=== PATIENT | male | born 1960 | race Caucasian/White ===

== ENCOUNTER 2017-01-27 11:00 | Inpatient (IN) | payer BC ==
[~2017-01-27] VITALS: Ht 185.4 cm; Wt 114.0 kg
[~2017-01-27 11:00] MED LIST: FLUT0.0529 NAE
[2017-01-27] MEDS ORDERED: ONDANSETRON 8 MG/54 ML D5W IV STA (11:29)
[2017-01-27] MEDS ORDERED: SODIUM CHLORIDE 0.9% 1000ML 1,000 ML IV STA ×2 (11:29→14:27)
[2017-01-27] MEDS ORDERED: METF500T5 PO (11:29)
[2017-01-27 11:54] LABS: BASO % 0.1 %; BASO ABS # 0.01 K/uL (0-0.2); COMPLETE YES; EOS % 0.2 %; HEMATOCRIT 46.6 % (42-52); IG% 0.2 %; LYMPH % 8.5 %; LYMPH ABS # 0.85 K/uL (1.2-3.4); MEAN CELL VOLUME 88.4 fL (80-100); MEAN CORPUSCULAR HEMOGLOBIN 30.4 pg (25-34); MEAN CORPUSCULAR HGB CONC 34.3 g/dl (32-36); MEAN PLATELET VOLUME 10.8 fL (7.4-10.4); MONO % 3.7 %; NEUT % 87.3 %; PLATELET COUNT 216 K/uL (130-400); RED BLOOD COUNT 5.27 M/uL (4.7-6.1)
[2017-01-27 11:58] LABS: ISTAT CREATININE 0.9 mg/dl (0.6-1.3); ISTAT HEMOGLOBIN 17.3 g/dl (14.0-18.0); ISTAT IONIZED CALCIUM 1.22 mmol/l (1.12-1.32)
[2017-01-27] MEDS: HYDROmorphone INJ 1 MG/ML SYR IV PRN ×2 (11:58→13:34)
--- NOTE | 2017-01-27 12:05 | DIAGNOSTIC IMAGING REPORT ---
CHEST ONE VIEW PORTABLE HISTORY: Atypical CHEST PAIN COMPARISON: None. FINDINGS: Low lung volumes. Left basilar subsegmental atelectasis. The heart is normal in size. No pleural effusions. No pneumothorax. Right hilar prominence may be due to the slight patient rotation. IMPRESSION: Left basilar subsegmental atelectasis. No acute process within the chest. Electronically signed by: Manuel Wick M.D. 01/27/2017 12:02 PM Dictated Date/Time: 01/27/2017 12:02 PM
[2017-01-27 12:28] LABS: BUN/CREATININE RATIO 16.7 (10-20); CALCIUM 9.1 mg/dl (8.5-10.1); CKMB/CK RATIO 1.9 (0-3.0); CREATININE 1.1 mg/dl (0.60-1.40); POTASSIUM 4.9 mmol/L (3.5-5.1)
[2017-01-27 12:43] LABS: BETA-HYDROXYBUTYRATE 6.82 mg/dL (0.2-2.81)
[2017-01-27] MEDS ORDERED: OPTIRAY 320 IV PRN (12:45)
--- NOTE | 2017-01-27 13:36 | DIAGNOSTIC IMAGING REPORT ---
CHEST CTA for AORTIC DISSECTION CT DOSE: 1979.96 mGy.cm HISTORY: Mid back pain. Anterior chest pain. TECHNIQUE: Multiaxial CT images of the chest were performed both before and after the intravenous administration of contrast to evaluate the aorta. Maximal intensity projection images were also obtained. COMPARISON STUDY: None. FINDINGS: Noncontrast imaging shows no evidence for an intramural hematoma within the thoracic aorta. Normal caliber thoracic aorta with no evidence for dissection. The central pulmonary arteries are patent. No pleural or pericardial effusions. The heart is normal in size. A few hypodense thyroid nodules with the largest on the right measuring 1 cm. No mediastinal or hilar lymphadenopathy. The spleen and adrenal glands are unremarkable. Hepatic steatosis. Mild inflammatory change surrounding the gallbladder. There is a 2.7 cm stone at the gallbladder neck. Normal caliber common bile duct. These findings are consistent with acute cholecystitis. No suspicious lytic or blastic osseous lesions. No pneumothorax. Bibasilar linear and groundglass densities favor atelectasis. IMPRESSION: 1. No evidence for an aortic dissection. 2. Bibasilar linear and groundglass densities favor atelectasis. 3. Mild inflammatory change surrounding the gallbladder. There is a 2.7 cm stone at the gallbladder neck. These findings are consistent with acute cholecystitis. Surgical consultation recommended. Electronically signed by: Manuel Wick M.D. 01/27/2017 1:34 PM Dictated Date/Time: 01/27/2017 1:26 PM
[2017-01-27] MEDS ORDERED: SODIUM CHLORIDE 0.9% 1000ML 2,000 ML IV STA (14:27)
[2017-01-27] MEDS ORDERED: NovoLIN-R INSULIN PER UNIT CHARGE IV STA (14:27)
--- NOTE | 2017-01-27 15:03 | DIAGNOSTIC IMAGING REPORT ---
ABDOMINAL ULTRASOUND, RIGHT UPPER QUADRANT HISTORY: back pain, cholecystitis? on US. COMPARISON: Chest CTA 01/27/2017. FINDINGS: Pancreas: The pancreatic head and tail are obscured by overlying bowel gas. The remaining portions of the pancreas are within normal limits. Liver: The liver is echogenic consistent with fatty change. Gallbladder: There is a 2.5 cm stone impacted within the neck of the gallbladder. There is trace pericholecystic fluid and borderline gallbladder wall thickening at 3 mm. There is also trace gallbladder sludge. CBD: 4 mm. Right kidney: No hydronephrosis. IMPRESSION: A 2.5 cm stone impacted in the neck of the gallbladder with trace pericholecystic fluid and borderline gallbladder wall thickening. In conjunction with the same day chest CT this is highly suspicious for acute cholecystitis. Electronically signed by: Manuel Wick M.D. 01/27/2017 3:02 PM Dictated Date/Time: 01/27/2017 2:59 PM
[2017-01-27 15:30] VITALS: O2SAT 93; BMI 33.2
[2017-01-27] MEDS ORDERED: CEFOXITIN SOD 2 GM VIAL IV STA (15:47)
[2017-01-27] MEDS ORDERED: HYDROmorphone INJ 1 MG/ML SYR IV PRN (16:30)
[2017-01-27] MEDS ORDERED: ONDANSETRON INJ 2 MG/ML 2 ML VIAL IV PRN (16:30)
[2017-01-27] MEDS ORDERED: HYDROCODONE/ACETAMOPHEN 5/325MG TAB PO PRN ×2 (16:30)
[2017-01-27] MEDS ORDERED: PROMETHAZINE HCL INJ 25 MG in SODIUM CHLORIDE 0.9% 50ML 50 ML IV PRN (16:30)
[2017-01-27] MEDS ORDERED: HYDROmorphone INJ 0.5 MG/0.5 ML SYR IV PRN (16:30)
--- NOTE | 2017-01-27 16:36 | Surgery Progress Note ---
Surgery Progress Note Date of Service Jan 27, 2017. Subjective see dictated note Objective Vital Signs: Date Time Temp Pulse Resp B/P Pulse Ox O2 Delivery O2 Flow Rate FiO2 01/27/17 16:07 65 18 135/73 97 Room Air 01/27/17 15:47 70 01/27/17 15:30 93 Room Air 01/27/17 14:01 74 18 155/82 93 Room Air 01/27/17 12:50 65 01/27/17 12:02 65 18 160/96 94 Room Air 163/89 01/27/17 11:52 94 Room Air 01/27/17 11:52 93 Room Air 01/27/17 11:07 36.3 59 18 175/96 96 Room Air Laboratory Results: Results Past 24 Hours Test 01/27/17 11:39 01/27/17 11:42 01/27/17 11:45 01/27/17 16:05 Range/Units White Blood Count 10.00 4.8-10.8 K/uL Red Blood Count 5.27 4.7-6.1 M/uL Hemoglobin 16.0 14.0-18.0 g/dL Hematocrit 46.6 42-52 % Mean Corpuscular Volume 88.4 80-100 fL Mean Corpuscular Hemoglobin 30.4 25-34 pg Mean Corpuscular Hemoglobin Concent 34.3 32-36 g/dl Platelet Count 216 130-400 K/uL Mean Platelet Volume 10.8 7.4-10.4 fL Neutrophils (%) (Auto) 87.3 % Lymphocytes (%) (Auto) 8.5 % Monocytes (%) (Auto) 3.7 % Eosinophils (%) (Auto) 0.2 % Basophils (%) (Auto) 0.1 % Neutrophils # (Auto) 8.73 1.4-6.5 K/uL Lymphocytes # (Auto) 0.85 1.2-3.4 K/uL Monocytes # (Auto) 0.37 0.11-0.59 K/uL Eosinophils # (Auto) 0.02 0-0.5 K/uL Basophils # (Auto) 0.01 0-0.2 K/uL RDW Standard Deviation 42.9 36.4-46.3 fL RDW Coefficient of Variation 13.3 11.5-14.5 % Immature Granulocyte % (Auto) 0.2 % Immature Granulocyte # (Auto) 0.02 0.00-0.02 K/uL Sodium Level 138 136-145 mmol/L Potassium Level 4.9 3.5-5.1 mmol/L Chloride Level 105 98-107 mmol/L Carbon Dioxide Level 28 21-32 mmol/L Anion Gap 5.0 21.0 16-25 mmol/L Blood Urea Nitrogen 18 7-18 mg/dl Creatinine 1.10 0.60-1.40 mg/dl Est Creatinine Clear Calc Drug Dose 96.8 ml/min Estimated GFR () 85.3 Estimated GFR (Non- 73.6 BUN/Creatinine Ratio 16.7 10-20 Random Glucose 354 70-99 mg/dl Calcium Level 9.1 8.5-10.1 mg/dl Total Bilirubin 0.9 0.2-1 mg/dl Direct Bilirubin 0.2 0-0.2 mg/dl Aspartate Amino Transf (AST/SGOT) 23 15-37 U/L Alanine Aminotransferase (ALT/SGPT) 56 12-78 U/L Alkaline Phosphatase 132 45-117 U/L Total Creatine Kinase 57 39-308 U/L Creatine Kinase MB 1.1 0.5-3.6 ng/ml Creatine Kinase MB Ratio 1.9 0-3.0 Total Protein 7.7 6.4-8.2 gm/dl Albumin 4.0 3.4-5.0 gm/dl Lipase 103 73-393 U/L Beta-Hydroxybutyric Acid 6.82 0.2-2.81 mg/dL Bedside D-Dimer 406 0-450 ng/mlFEU Bedside Troponin I 0.000 0-0.045 ng/ml Bedside Hemoglobin 17.3 14.0-18.0 g/dl Bedside Hematocrit 51 42-52 % Bedside Sodium 139 135-144 mEq/L Bedside Potassium 4.9 3.3-5.0 mEq/L Bedside Chloride 101 101-112 mEq/L Bedside Total CO2 23 24-31 mEq/l Bedside Blood Urea Nitrogen 20 7-18 mg/dl Bedside Creatinine 0.9 0.6-1.3 mg/dl Bedside Glucose (other) 347 70-99 mg/dl Bedside Ionized Calcium (Ruben) 1.22 1.12-1.32 mmol/l Bedside Glucose 241 70-99 mg/dl Assessment & Plan 01/27/17- adm pt with acute cholecystitis- has Lg stone in neck of gallbladder. will place pt on IV fluids and IV atbx- ask medical team to see pt and proceed with lap juan jose, possible open operation - likely tomorrow am
[2017-01-27] MEDS ORDERED: PROMETHAZINE HCL INJ 12.5 MG in SODIUM CHLORIDE 0.9% 50ML 50 ML IV PRN (16:45)
[2017-01-27] MEDS ORDERED: PHARMACY GLYCEMIC MGMT CONSULT PRN (16:58)
[2017-01-27] MEDS ORDERED: DEXTROSE 50% 50 ML SYR IV PRN (17:00)
[2017-01-27] MEDS ORDERED: GLUCAGON FOR INJ 1 MG VIAL SQ PRN (17:00)
[2017-01-27] MEDS ORDERED: GLUCOSE 10 TABS/TUBE PO PRN (17:00)
[2017-01-27] MEDS ORDERED: GLUCOSE 40% GEL 15 GM TUBE PO PRN (17:00)
--- NOTE | 2017-01-27 17:06 | HISTORY & PHYSICAL EXAMINATION ---
DATE OF ADMISSION: 01/27/2017 REASON FOR ADMISSION: For acute cholecystitis. HISTORY OF PRESENT ILLNESS: The patient is a 56-year-old male who presented to the Emergency Room with what appeared to be back pain over the past 12-18 hours with some nausea and vomiting and upon workup which included a CT scan of the chest for dissection, he was found to have a mildly thickened gallbladder with stone in the neck of the gallbladder with very small amount of pericholecystic fluid consistent with acute cholecystitis. He had no other prior episodes to this. His other history does include history of diabetes. FAMILY AND SOCIAL HISTORY: Noncontributory. MEDICATIONS: Include metformin. REVIEW OF SYSTEMS: Please see H\T\P for positive systems. He has no fevers, chills, eye pain, cough, shortness of breath, chest pain, diarrhea, constipation, joint pain, hematuria, dysuria, weakness, fatigue, rash. PHYSICAL EXAMINATION: GENERAL: He is a well-nourished, well-developed. He is in no significant distress, although did receive some pain medication. HEAD: Atraumatic. EYES: Sclerae nonicteric. NECK: Supple. LUNGS: Clear with no respiratory distress. HEART: Regular rate and rhythm. ABDOMEN: Soft. He does have some mild discomfort in the right upper quadrant to deep palpation. He does have bowel sounds. EXTREMITIES: Show no significant pedal edema. He is alert and oriented. IMAGING: I did review his CAT scan and his ultrasound. ASSESSMENT AND PLAN: A 56-year-old male admitted with what appears to be acute cholecystitis from cholelithiasis. I am going to have the medical team to see the patient and place him on IV antibiotics and IV fluids. We will most likely proceed with laparoscopic cholecystectomy, possible open cholecystectomy in the next 24-48 hours.
--- NOTE | 2017-01-27 17:12 | Medical Consult ---
Consultation Date of Consultation: Jan 27, 2017. Attending Physician: Dr. Sierra Reason for Consultation: Pre-Op Eval History of Present Illness 56 year old male who presented to the ER with back pain, abdominal pain, nausea , and vomiting. Patient reports he went to bed last night feeling in his usual state of health. He woke up in the middle of the night with severe pain between his shoulder blades, nausea, and vomiting. He reports several episodes of vomiting and dry heaves throughout the night. He denies hematemesis or coffee ground emesis. He rates the pain #10/10 at its worst and describes it as an ache. He reports he had generalized abdominal pain. Symptoms continued through to this morning. Patient went to his chiropractor and only had minimal relief so he came to the ER for further evaluation. Patient reports he had a diarrhea yesterday. He denies BRBPR or dark tarry stools. He reports he had buffalo chicken wings and 3 shots of rum with dinner last night. Today he episodes of chills and hot flashes. He did not take his temperature at home. Patient reports he otherwise has been feeling well recently. No chest pain or shortness of breath. Reports he can climb a flight of stairs without difficulty. Reports he is very active with his job. He has been tolerating his daily activities without any problems. He denies orthopnea and lower extremity edema. No lightheadedness, dizziness, diaphoresis, or syncopal events. He denies urinary symptoms. In the ER, patient is found to have acute cholecystitis with large stone impacted in the neck of the gallbladder. Blood sugar is 354. He was given 6 units IV insulin. Vitals are stable, no leukocytosis. He was also given cefoxitin, IVF, Zofran, and Dilaudid. Patient reports feeling much better. Past Medical/Surgical History Medical Problems: (1) Diabetes Status: Chronic Surgical Problems: (1) H/O inguinal hernia repair Status: Chronic (2) History of tonsillectomy Status: Chronic Family History FH: CAD (coronary artery disease) FATHER ([place] at age 58) Pacemaker MOTHER Social History Smoking Status: Never Smoker Alcohol Use: occasionally Allergies Coded Allergies: Codeine (Verified Adverse Reaction, Unknown, DIZZINESS, 01/27/17) Home Medications Glucophage Er (Metformin HCl) 500 Mg Tab 1,000 Mg PO DAILY Current Inpatient Medications Current Inpatient Medications Medications (Trade) Dose Ordered Sig/Roni Route Start Time Stop Time Status Last Admin Dose Admin Hydromorphone HCl 1 mg 1 mg Q15M PRN IV 01/27/17 11:30 02/10/17 11:29 01/27/17 13:34 1 MG Sodium Chloride (Nss 1000ml) 1,000 ml @ 125 mls/hr Q8H STAT IV 01/27/17 11:29 01/27/17 19:28 01/27/17 11:29 125 MLS/HR Ioversol 100 ml 100 ml UD PRN IV 01/27/17 12:45 01/31/17 12:44 Sodium Chloride 1,000 ml @ 200 mls/hr Q5H STAT IV 01/27/17 14:27 01/27/17 19:26 01/27/17 16:25 200 MLS/HR Lactated Ringer's 1,000 ml @ 80 mls/hr [id number] IV 01/27/17 16:23 02/26/17 16:22 Cefoxitin Sodium/ Dextrose (Mefoxin IV/D5 50ml) 60 ml @ 100 mls/hr Q6H IV 01/27/17 16:30 02/06/17 16:29 UNV Hydromorphone HCl (Dilaudid Inj) 0.5 mg Q3H PRN IV 01/27/17 16:30 02/10/17 16:29 Hydromorphone HCl (Dilaudid Inj) 1 mg Q3H PRN IV 01/27/17 16:30 02/10/17 16:29 Acetaminophen/ Hydrocodone Bitart (Bendena 5/325 Tab) 1 tab Q4 PRN PO 01/27/17 16:30 02/10/17 16:29 Acetaminophen/ Hydrocodone Bitart 2 tab 2 tab Q4 PRN PO 01/27/17 16:30 02/10/17 16:29 Promethazine HCl/ Sodium Chloride (Phenergan Inj/ Nss 50ml) 51 ml @ 204 mls/hr Q6H PRN IV 01/27/17 16:30 02/26/17 16:29 Ondansetron HCl 4 mg 4 mg Q6H PRN IV 01/27/17 16:30 02/26/17 16:29 Promethazine HCl/ Sodium Chloride (Phenergan Inj/ Nss 50ml) 50.5 ml @ 204 mls/hr Q6H PRN IV 01/27/17 16:45 02/26/17 16:44 Review of Systems 10 point review of systems was completed with the pertinent positives and negatives noted per the HPI Physical Exam Date Time Temp Pulse Resp B/P Pulse Ox O2 Delivery O2 Flow Rate FiO2 01/27/17 16:07 65 18 135/73 97 Room Air 01/27/17 15:47 70 01/27/17 15:30 93 Room Air 01/27/17 14:01 74 18 155/82 93 Room Air 01/27/17 12:50 65 01/27/17 12:02 65 18 160/96 94 Room Air 163/89 01/27/17 11:52 94 Room Air 01/27/17 11:52 93 Room Air 01/27/17 11:07 36.3 59 18 175/96 96 Room Air General Appearance: no apparent distress Head: normocephalic Eyes: normal inspection ENT: hearing grossly normal Neck: supple, no JVD Respiratory/Chest: lungs clear, normal breath sounds, no respiratory distress Cardiovascular: regular rate, rhythm, no edema, normal peripheral pulses Abdomen/GI: normal bowel sounds, non tender, soft Extremities/Musculoskelatal: normal inspection, no calf tenderness Neurologic/Psych: no motor/sensory deficits, alert, normal mood/affect, oriented x 3 Skin: normal color, warm/dry Laboratory Results Last 24 Hours Test 01/27/17 11:39 01/27/17 11:42 01/27/17 11:45 01/27/17 16:05 White Blood Count 10.00 K/uL Red Blood Count 5.27 M/uL Hemoglobin 16.0 g/dL Hematocrit 46.6 % Mean Corpuscular Volume 88.4 fL Mean Corpuscular Hemoglobin 30.4 pg Mean Corpuscular Hemoglobin Concent 34.3 g/dl Platelet Count 216 K/uL Mean Platelet Volume 10.8 fL Neutrophils (%) (Auto) 87.3 % Lymphocytes (%) (Auto) 8.5 % Monocytes (%) (Auto) 3.7 % Eosinophils (%) (Auto) 0.2 % Basophils (%) (Auto) 0.1 % Neutrophils # (Auto) 8.73 K/uL Lymphocytes # (Auto) 0.85 K/uL Monocytes # (Auto) 0.37 K/uL Eosinophils # (Auto) 0.02 K/uL Basophils # (Auto) 0.01 K/uL RDW Standard Deviation 42.9 fL RDW Coefficient of Variation 13.3 % Immature Granulocyte % (Auto) 0.2 % Immature Granulocyte # (Auto) 0.02 K/uL Sodium Level 138 mmol/L Potassium Level 4.9 mmol/L Chloride Level 105 mmol/L Carbon Dioxide Level 28 mmol/L Anion Gap 5.0 mmol/L 21.0 mmol/L Blood Urea Nitrogen 18 mg/dl Creatinine 1.10 mg/dl Est Creatinine Clear Calc Drug Dose 96.8 ml/min Estimated GFR () 85.3 Estimated GFR (Non- 73.6 BUN/Creatinine Ratio 16.7 Random Glucose 354 mg/dl Calcium Level 9.1 mg/dl Total Bilirubin 0.9 mg/dl Direct Bilirubin 0.2 mg/dl Aspartate Amino Transf (AST/SGOT) 23 U/L Alanine Aminotransferase (ALT/SGPT) 56 U/L Alkaline Phosphatase 132 U/L Total Creatine Kinase 57 U/L Creatine Kinase MB 1.1 ng/ml Creatine Kinase MB Ratio 1.9 Total Protein 7.7 gm/dl Albumin 4.0 gm/dl Lipase 103 U/L Beta-Hydroxybutyric Acid 6.82 mg/dL Bedside D-Dimer 406 ng/mlFEU Bedside Troponin I 0.000 ng/ml Bedside Hemoglobin 17.3 g/dl Bedside Hematocrit 51 % Bedside Sodium 139 mEq/L Bedside Potassium 4.9 mEq/L Bedside Chloride 101 mEq/L Bedside Total CO2 23 mEq/l Bedside Blood Urea Nitrogen 20 mg/dl Bedside Creatinine 0.9 mg/dl Bedside Glucose (other) 347 mg/dl Bedside Ionized Calcium (Ruben) 1.22 mmol/l Bedside Glucose 241 mg/dl Assessment & Plan ACUTE CHOLECYSTITIS - admitted to med/surg under Dr. Sierra's service - planning for OR tomorrow - patient hemodynamically stable, no signs of sepsis; patient feeling much improved after treatment in the ED - s/p cefoxitin in ED, continued by Dr. Sierra - clear liquids, NPO after midnight - from a pre op eval stand point - patient denies any cardio pulmonary complaints; EKG shows NSR without ischemic changes, CXR is clear - patient is considered acceptable risk to proceed to the OR DM, UNCONTROLLED - was recently restarted on metformin when hgb a1c was found to be 12.0 - on presentation, glucose 354; received 6 units IV insulin and now improving - will utilize SSI and basal insulin while hospitalized and to obtain optimal control prior to surgery DVT PROPHYLAXIS - SCDs due to OR tomorrow Thank you for this consultation. We will follow the patient with you during their hospital stay. You can reach a member of the [facility] Hospitalist Team 07/05 via pager @ . SUPERVISING PHYSICIAN ADDENDUM Record reviewed. Patient interviewed and examined in ED. Care coordinated with TESSA Lebron. Please refer to her documentation for patient's history. Briefly, 56 YO male with history of DM type 2. Otherwise, enjoys good health. No history of cardiac disease; good functional status. Developed epigastric pain, nausea, vomiting last night after eating fatty meal. Came to ED for evaluation which revealed cholelithiasis with cholecystitis. Surgery consulted. Cholecystectomy anticipated tomorrow. EXAM: General- no distress VS- as noted HEENT- anicteric Neck- no JVD Lungs- clear Heart- RRR Abdomen- mild RUQ tenderness without rebound or guarding Extremities- no edema or calf tenderness Neuro- alert DATA: Random glucose 354, repeat 241. WBC 10,000. LFT's essentially normal. Other lab studies as noted. CXR - neg except for subsegmental atelectasis. CTA - negative for aortic dissection; cholelithiasis with cholecystitis noted. GB US - cholelithiasis with cholecystitis EKG performed at 11:19 reviewed and demonstrated SB at 55 / minute, no acute ST or T-wave changes. ASSESSMENT AND PLAN: Cholelithiasis with cholecystitis. Started on cefoxitin. Management per General Surgery. DM type 2 Recent Hgb A1C was 12. Random blood sugar in ED 354. Hold metformin. Manage with Lantus / NovoLog per protocol during hospital stay. No history of cardiac disease. Good functional status. Not at increased risk for perioperative cardiac complications. OK to proceed with surgery without additional cardiac evaluation. Please refer to CHEPE Joe's documentation for discussion of other issues. Beka Alfaro MD .
--- NOTE | 2017-01-27 17:28 | EMERGENCY ROOM VISIT NOTE ---
History Report prepared by Tk: Rock Bird Under the Supervision of: Dr. Beka Alexis M.D. First contact with patient: 11:28 Chief Complaint: BACK PAIN Stated Complaint: STOMACH, CHEST, BACK PAIN History of Present Illness The patient is a 56 year old male who presents to the Emergency Room with complaints of worsening upper back pain between the shoulder blades that started this morning while sleeping. This pain intermittently radiates to the chest. It does not radiate to jaw or arms. Patient states that this is the worse pain of his life. He rates it a 9/10 in severity. Associated symptoms include chills and nausea. He denies recent heavy lifting or trauma to back. Patient does add that he took 3 shots of rum last night. He does this occasionally. The patient denies ever experiencing similar symptoms in the past. He denies past cardiac history. Pt denies LOC, headache, fevers, diaphoresis, visual changes, neck pain, breathing difficulties, vomiting, abdominal pain, melena, hematochezia, urinary symptoms, numbness, weakness, lymphadenopathy, rash, or other complaints. Source of History: patient Onset: This morning while sleeping Position: back Symptom Intensity: 9/10 Timing: worsening Modifying Factors (Relieving): other (None) Associated Symptoms: + chest pain, + chills, + nausea, No LOC, No SOB, No abdominal pain, No diaphoresis, No headache, No hematochezia, No lymphadenopathy , No melena, No numbness, No rash, No vomiting, No weakness Review of Systems See HPI for pertinent positives and negatives. A total of ten systems were reviewed and were otherwise negative. Past Medical & Surgical Medical Problems: (1) Diabetes Surgical Problems: (1) H/O inguinal hernia repair (2) History of tonsillectomy Family History Unknown family medical history Social History Smoking Status: Never Smoker Alcohol Use: occasionally Drug Use: none Marital Status: Housing Status: lives with significant other Current/Historical Medications Scheduled Metformin Hcl Er (Glucophage Er), 1,000 MG PO DAILY Allergies Coded Allergies: Codeine (Verified Adverse Reaction, Unknown, DIZZINESS, 01/27/17) Physical Exam Vital Signs Date Time Temp Pulse Resp B/P Pulse Ox O2 Delivery O2 Flow Rate FiO2 01/27/17 16:07 65 18 135/73 97 Room Air 01/27/17 15:47 70 01/27/17 15:30 93 Room Air 01/27/17 14:01 74 18 155/82 93 Room Air 01/27/17 12:50 65 01/27/17 12:02 65 18 160/96 94 Room Air 163/89 01/27/17 11:52 94 Room Air 01/27/17 11:52 93 Room Air 01/27/17 11:07 36.3 59 18 175/96 96 Room Air Physical Exam GENERAL: Awake, alert, uncomfortable appearing. HENT: Normocephalic, atraumatic. Oropharynx unremarkable. EYES: Normal conjunctiva. Sclera non-icteric. NECK: Supple. No nuchal rigidity. FROM. No JVD. RESPIRATORY: Clear to auscultation. CARDIAC: Regular rate, normal rhythm. Extremities warm and well perfused. Pulses equal. ABDOMEN: Epigastric tenderness to palpation. Soft, non-distended. No rebound or guarding. No masses. RECTAL: Deferred. MUSCULOSKELETAL: Chest examination reveals no tenderness. The back is symmetrical on inspection without obvious abnormality. There is no CVA tenderness to palpation. No joint edema. LOWER EXTREMITIES: Calves are equal size bilaterally and non-tender. No edema. No discoloration. NEURO: Normal sensorium. No sensory or motor deficits noted. SKIN: No rash or jaundice noted. Medical Decision & Procedures ER Provider Diagnostic Interpretation: X ray results as stated below per my interpretation and radiologist interpretation. Other radiology results as stated below per my review and radiologist interpretation CHEST ONE VIEW PORTABLE HISTORY: Atypical CHEST PAIN COMPARISON: None. FINDINGS: Low lung volumes. Left basilar subsegmental atelectasis. The heart is normal in size. No pleural effusions. No pneumothorax. Right hilar prominence may be due to the slight patient rotation. IMPRESSION: Left basilar subsegmental atelectasis. No acute process within the chest. Electronically signed by: Manuel Wick M.D. 01/27/2017 12:02 PM Dictated Date/Time: 01/27/2017 12:02 PM CHEST CTA for AORTIC DISSECTION CT DOSE: 1979.96 mGy.cm HISTORY: Mid back pain. Anterior chest pain. TECHNIQUE: Multiaxial CT images of the chest were performed both before and after the intravenous administration of contrast to evaluate the aorta. Maximal intensity projection images were also obtained. COMPARISON STUDY: None. FINDINGS: Noncontrast imaging shows no evidence for an intramural hematoma within the thoracic aorta. Normal caliber thoracic aorta with no evidence for dissection. The central pulmonary arteries are patent. No pleural or pericardial effusions. The heart is normal in size. A few hypodense thyroid nodules with the largest on the right measuring 1 cm. No mediastinal or hilar lymphadenopathy. The spleen and adrenal glands are unremarkable. Hepatic steatosis. Mild inflammatory change surrounding the gallbladder. There is a 2.7 cm stone at the gallbladder neck. Normal caliber common bile duct. These findings are consistent with acute cholecystitis. No suspicious lytic or blastic osseous lesions. No pneumothorax. Bibasilar linear and groundglass densities favor atelectasis. IMPRESSION: 1. No evidence for an aortic dissection. 2. Bibasilar linear and groundglass densities favor atelectasis. 3. Mild inflammatory change surrounding the gallbladder. There is a 2.7 cm stone at the gallbladder neck. These findings are consistent with acute cholecystitis. Surgical consultation recommended. Electronically signed by: Manuel Wick M.D. 01/27/2017 1:34 PM Dictated Date/Time: 01/27/2017 1:26 PM ABDOMINAL ULTRASOUND, RIGHT UPPER QUADRANT HISTORY: back pain, cholecystitis? on US. COMPARISON: Chest CTA 01/27/2017. FINDINGS: Pancreas: The pancreatic head and tail are obscured by overlying bowel gas. The remaining portions of the pancreas are within normal limits. Liver: The liver is echogenic consistent with fatty change. Gallbladder: There is a 2.5 cm stone impacted within the neck of the gallbladder. There is trace pericholecystic fluid and borderline gallbladder wall thickening at 3 mm. There is also trace gallbladder sludge. CBD: 4 mm. Right kidney: No hydronephrosis. IMPRESSION: A 2.5 cm stone impacted in the neck of the gallbladder with trace pericholecystic fluid and borderline gallbladder wall thickening. In conjunction with the same day chest CT this is highly suspicious for acute cholecystitis. Electronically signed by: Manuel Wick M.D. 01/27/2017 3:02 PM Dictated Date/Time: 01/27/2017 2:59 PM Laboratory Results 01/27/17 11:39 Red Blood Count 5.27, Mean Corpuscular Volume 88.4, Mean Corpuscular Hemoglobin 30.4, Mean Corpuscular Hemoglobin Concent 34.3, Mean Platelet Volume 10.8, Neutrophils (%) (Auto) 87.3, Lymphocytes (%) (Auto) 8.5, Monocytes (%) (Auto) 3.7, Eosinophils (%) (Auto) 0.2, Basophils (%) (Auto) 0.1, Neutrophils # (Auto) 8.73, Lymphocytes # (Auto) 0.85, Monocytes # (Auto) 0.37, Eosinophils # (Auto) 0.02, Basophils # (Auto) 0.01 01/27/17 11:39 Test 01/27/17 11:39 01/27/17 11:42 01/27/17 11:45 01/27/17 16:05 White Blood Count 10.00 K/uL (4.8-10.8) Red Blood Count 5.27 M/uL (4.7-6.1) Hemoglobin 16.0 g/dL (14.0-18.0) Hematocrit 46.6 % (42-52) Mean Corpuscular Volume 88.4 fL (80-100) Mean Corpuscular Hemoglobin 30.4 pg (25-34) Mean Corpuscular Hemoglobin Concent 34.3 g/dl (32-36) Platelet Count 216 K/uL (130-400) Mean Platelet Volume 10.8 fL (7.4-10.4) Neutrophils (%) (Auto) 87.3 % Lymphocytes (%) (Auto) 8.5 % Monocytes (%) (Auto) 3.7 % Eosinophils (%) (Auto) 0.2 % Basophils (%) (Auto) 0.1 % Neutrophils # (Auto) 8.73 K/uL (1.4-6.5) Lymphocytes # (Auto) 0.85 K/uL (1.2-3.4) Monocytes # (Auto) 0.37 K/uL (0.11-0.59) Eosinophils # (Auto) 0.02 K/uL (0-0.5) Basophils # (Auto) 0.01 K/uL (0-0.2) RDW Standard Deviation 42.9 fL (36.4-46.3) RDW Coefficient of Variation 13.3 % (11.5-14.5) Immature Granulocyte % (Auto) 0.2 % Immature Granulocyte # (Auto) 0.02 K/uL (0.00-0.02) Est Creatinine Clear Calc Drug Dose 96.8 ml/min Estimated GFR () 85.3 Estimated GFR (Non- 73.6 BUN/Creatinine Ratio 16.7 (10-20) Calcium Level 9.1 mg/dl (8.5-10.1) Total Bilirubin 0.9 mg/dl (0.2-1) Direct Bilirubin 0.2 mg/dl (0-0.2) Aspartate Amino Transf (AST/SGOT) 23 U/L (15-37) Alanine Aminotransferase (ALT/SGPT) 56 U/L (12-78) Alkaline Phosphatase 132 U/L (45-117) Total Creatine Kinase 57 U/L (39-308) Creatine Kinase MB 1.1 ng/ml (0.5-3.6) Creatine Kinase MB Ratio 1.9 (0-3.0) Total Protein 7.7 gm/dl (6.4-8.2) Albumin 4.0 gm/dl (3.4-5.0) Lipase 103 U/L (73-393) Beta-Hydroxybutyric Acid 6.82 mg/dL (0.2-2.81) Bedside D-Dimer 406 ng/mlFEU (0-450) Bedside Troponin I 0.000 ng/ml (0-0.045) Bedside Hemoglobin 17.3 g/dl (14.0-18.0) Bedside Hematocrit 51 % (42-52) Bedside Sodium 139 mEq/L (135-144) Bedside Potassium 4.9 mEq/L (3.3-5.0) Bedside Chloride 101 mEq/L (101-112) Bedside Total CO2 23 mEq/l (24-31) Anion Gap 21.0 mmol/L (16-25) Bedside Blood Urea Nitrogen 20 mg/dl (7-18) Bedside Creatinine 0.9 mg/dl (0.6-1.3) Bedside Glucose (other) 347 mg/dl (70-99) Bedside Ionized Calcium (Ruben) 1.22 mmol/l (1.12-1.32) Bedside Glucose 241 mg/dl (70-99) Laboratory results reviewed by me Medications Administered Medications (Trade) Dose Ordered Sig/Roni Route Start Time Stop Time Status Last Admin Dose Admin Ondansetron HCl (Zofran 8mg Iv) 8 mg NOW STAT IV 01/27/17 11:29 01/27/17 11:31 DC 01/27/17 11:58 8 MG Hydromorphone HCl 1 mg 1 mg Q15M PRN IV 01/27/17 11:30 02/10/17 11:29 01/27/17 13:34 1 MG Sodium Chloride (Nss 1000ml) 1,000 ml @ 125 mls/hr Q8H STAT IV 01/27/17 11:29 01/27/17 19:28 01/27/17 11:29 125 MLS/HR Insulin Human Regular 6 units 6 units NOW STAT IV 01/27/17 14:27 01/27/17 14:28 DC 01/27/17 15:03 6 UNITS Sodium Chloride 1,000 ml @ 200 mls/hr Q5H STAT IV 01/27/17 14:27 01/27/17 19:26 01/27/17 16:25 200 MLS/HR Sodium Chloride (Nss 1000ml) 2,000 ml @ 999 mls/hr Q2H1M STAT IV 01/27/17 14:27 01/27/17 16:27 DC 01/27/17 15:00 999 MLS/HR Cefoxitin Sodium (Mefoxin IV) 2,000 mg NOW STAT IV 01/27/17 15:47 01/27/17 15:48 DC 01/27/17 16:20 2,000 MG ECG Indication: back/shoulder pain Rate (beats per minute): 55 Rhythm: sinus bradycardia Findings: no acute ischemic change, no ectopy Comparison ECG Date: no prior available ED Course 1125: The patient was evaluated in room C9. A complete history and physical exam was performed. 1129: Ordered Sodium Chloride 1,000 ml @ 125 mls/hr IV, Ondansetron HCL 8 mg IV. 1130: Ordered Dilaudid Injection 1 mg IV. 1417: Upon reevaluation, the patient is resting more comfortably. 1427: Ordered Sodium Chloride 2,000 ml @ 999 mls/hr IV, Sodium Chloride 1,000 ml @ 200 mls/hr IV, Insulin Human Regular 6 units IV. 1428: The patient is feeling better. He will be going to ultrasound. 1547: Ordered Cefoxitin Sodium 2,000 mg IV. 1548: Discussed the patient's case with Dr. Sierra (Surgery). The patient will be evaluated for further treatment and disposition. He requests a pre-op medicine consult. 1554: I discussed the patient's case with Natacha Joe (JANELL Graff). She will complete pre-op evaluation. 1558: Updated the patient of the treatment plan. He is agreeable at this time. Medical Decision Triage Nursing notes reviewed. The patient's presentation and history were concerning for chest and back pain. Etiologies such as cardiac ischemia, aortic dissection, pulmonary embolism, pneumonia, pneumothorax, musculoskeletal, infections, gastrointestinal, as well as others were entertained. The patient was seen shortly after arrival. He was treated with Zofran and Dilaudid. The patient had an unremarkable chest x-ray and EKG. His blood work did not reveal any significant abnormalities. The patient was taken emergently for CT dissection study. This was negative for dissection or intra-abdominal process but revealed findings concerning for cholecystitis. Gallbladder ultrasound was performed and confirmed cholecystitis. The patient had consultation made with general surgery. He was hydrated and given IV Mefoxin. The patient was also given insulin. General surgery asked for a medicine consultation. This was done. The patient was admitted for further treatment. The chart was completed utilizing [employer] Speech voice recognition software. Grammatical errors, random word insertions, pronoun errors, and incomplete sentences are an occasional consequence of this system due to software limitations, ambient noise, and hardware issues. Any formal questions or concerns about the content, text, or information contained within the body of this dictation should be directly addressed to the physician for clarification. Consults Time Called: 1545 Consulting Physician: Dr. Sierra (Surgery) Returned Call: 1548 Discussed the patient's case with Dr. Sierra (Surgery). The patient will be evaluated for further treatment and disposition. He requests a pre-op medicine consult. Additional Consults: Time Called: 1550 Consulted Physician: Natacha Joe (AFIA Graff) Returned Call: 1559 Additional Comments: I discussed the patient's case with Natacha Joe (JANELL Graff). She will complete pre-op evaluation. Impression Primary Impression: Acute cholecystitis Scribe Attestation The scribe's documentation has been prepared under my direction and personally reviewed by me in its entirety. I confirm that the note above accurately reflects all work, treatment, procedures, and medical decision making performed by me. Departure Information Dispostion Being Evaluated By Hospitalist Referrals No Doctor, Assigned (PCP) Patient Instructions My [facility]
[2017-01-27 18:00] VITALS: BP 123/73; PULSE 57; TEMP 36.7; O2SAT 96
[2017-01-27] MEDS: LACTATED RINGER'S 1000ML 1,000 ML IV SCH (18:06)
--- NOTE | 2017-01-27 19:42 | Pharmacy Progress Note ---
Glycemic Control Intl Consult Date of Service Jan 27, 2017. Scope Glycemic Pharmacist consulted by TESSA Lebron on 01/27/17 for glycemic control and to write orders per [facility] inpatient glycemic control protocol Objective Weight (Kilograms): 114.000 Accuchecks BSG (last 24hrs): Test 01/27/17 11:39 01/27/17 16:05 01/27/17 18:04 Random Glucose 354 mg/dl (70-99) Bedside Glucose 241 mg/dl (70-99) 206 mg/dl (70-99) Laboratory Data (last 24hrs) Test 01/27/17 11:39 01/27/17 11:45 Anion Gap 5.0 mmol/L 21.0 mmol/L BUN/Creatinine Ratio 16.7 Blood Urea Nitrogen 18 mg/dl Creatinine 1.10 mg/dl Potassium Level 4.9 mmol/L Sodium Level 138 mmol/L White Blood Count 10.00 K/uL Red Blood Count 5.27 M/uL Hemoglobin 16.0 g/dL Hematocrit 46.6 % Mean Corpuscular Volume 88.4 fL Mean Corpuscular Hemoglobin 30.4 pg Mean Corpuscular Hemoglobin Concent 34.3 g/dl Platelet Count 216 K/uL Mean Platelet Volume 10.8 fL Neutrophils (%) (Auto) 87.3 % Lymphocytes (%) (Auto) 8.5 % Monocytes (%) (Auto) 3.7 % Eosinophils (%) (Auto) 0.2 % Basophils (%) (Auto) 0.1 % Neutrophils # (Auto) 8.73 K/uL Lymphocytes # (Auto) 0.85 K/uL Monocytes # (Auto) 0.37 K/uL Eosinophils # (Auto) 0.02 K/uL Basophils # (Auto) 0.01 K/uL Recent Pertinent Medications Outpatient Anti-diabetic Regimen: * Metformin ER 1000mg po daily * A1c = 12 % (01/16/17), per [facility] records Risk Factors for Insulin Resistance: * Infection: Acute cholecystitis, on Cefoxitin 1g IV q6 * IVF: LR @ 80 mL/hr * Recent Surgery: Cholecystecomy scheduled for 01/28/17 * Diet: Currently on a clear liquid diet, but will be NPO after 0000 on 01/28/17 Assessment & Plan ASSESSMENT: * ADA & AACE recommend a goal blood sugar range 140-180 mg/dl for the majority of critically ill & non-critically ill patients. However, more stringent targets may be selected in individual cases. * Recent HbA1c of 12% shows poor diabetic control. He was only recently restarted on metformin (per H&P). He is insulin-naive and appears to be sensitive to insulin. Elevated blood glucose >350 upon presentation to the ED earlier this morning. He received 6 units of regular insulin x 1 at ~1503. Blood glucose improved to 206 ~3 hours after IV dose. * He is ordered a clear liquid diet, but is currently not eating per his RN. Furthermore, he will be NPO after midnight for procedure on 01/28/17. Therefore , will give a very conservative dose of Lantus (reduced 75% from calculated dose based on his weight). Novolog scale also loosened from weight-based. Once patient recovers and is eating a regular diet, likely will need significantly more insulin. PLAN FOR INPATIENT GLYCEMIC CONTROL: * Holding outpatient oral diabetes medications; consider restart Metformin after surgery * Basal insulin with LANTUS 5 units SC BID if blood glucose >140 mg/dL * Hold Lantus if blood glucose <140 mg/dL * Correctional Insulin with NOVOLOG per scale ACHS or Q6hrs while NPO * Goal Range: Low 140 mg/dL - High 180 mg/dL * Correction Factor: 30 mg/dL/unit * Nutritional / Prandial insulin per carb ratio of 1 unit per 15 grams CHO consumed * Please note that the plan above was derived based on current level of insulin resistance and hospital stress. These recommendations are appropriate for inpatient admission only. Plan of care upon discharge will need to be reassessed to avoid potential outpatient hypo/hyperglycemia. Thank you.
[2017-01-27] MEDS ORDERED: INSULIN GLARGINE SOLOSTAR 100 UNITS/ML 3 ML PEN SC SCH (21:00)
[2017-01-27] MEDS ORDERED: INSULIN ASPART 100 UNITS/ML 3 ML PEN SC SCH (21:00)
[2017-01-27] MEDS ORDERED: NURSING DECISION MEDICATION ORDER SCH (21:30)
[2017-01-27] MEDS: CEFOXITIN IV 1,000 MG in DEXTROSE 5% 50ML 50 ML IV SCH (21:52)
[2017-01-27] MEDS: INSULIN GLARGINE SOLOSTAR 100 UNITS/ML 3 ML PEN SC SCH (21:53)
[2017-01-27 23:33] VITALS: BP 114/66; PULSE 58; TEMP 36.7; O2SAT 94
[2017-01-28] VITALS (8 sets, daily range): BP systolic 132–148; BP diastolic 71–81; PULSE 59–78; TEMP 36.2–37.6; O2SAT 91–95
[2017-01-28] MEDS: INSULIN ASPART 100 UNITS/ML 3 ML PEN SC SCH ×5 (00:35→21:18)
[2017-01-28] MEDS ORDERED: INSULIN ASPART 100 UNITS/ML 3 ML PEN SC ONE ×2 (02:00→03:00)
[2017-01-28] MEDS: CEFOXITIN IV 1,000 MG in DEXTROSE 5% 50ML 50 ML IV SCH ×4 (04:11→22:35)
[2017-01-28] MEDS: LACTATED RINGER'S 1000ML 1,000 ML IV SCH ×2 (04:12→18:13)
[2017-01-28 05:49] LABS: HEMATOCRIT 41.4 % (42-52); MEAN CELL VOLUME 90.8 fL (80-100); MEAN CORPUSCULAR HEMOGLOBIN 30.5 pg (25-34); MEAN CORPUSCULAR HGB CONC 33.6 g/dl (32-36); MEAN PLATELET VOLUME 10.5 fL (7.4-10.4); PLATELET COUNT 190 K/uL (130-400); RED BLOOD COUNT 4.56 M/uL (4.7-6.1); WHITE BLOOD COUNT 8.47 K/uL (4.8-10.8)
--- NOTE | 2017-01-28 06:06 | Surgery Progress Note ---
Surgery Progress Note Date of Service Jan 28, 2017. Subjective No nausea, No vomiting awake , alert Objective Vital Signs: Date Time Temp Pulse Resp B/P Pulse Ox O2 Delivery O2 Flow Rate FiO2 01/27/17 23:33 36.7 58 16 114/66 94 Room Air 01/27/17 19:40 Room Air 01/27/17 18:00 36.7 57 18 123/73 96 Room Air 01/27/17 16:07 65 18 135/73 97 Room Air 01/27/17 15:47 70 01/27/17 15:30 93 Room Air 01/27/17 14:01 74 18 155/82 93 Room Air 01/27/17 12:50 65 01/27/17 12:02 65 18 160/96 94 Room Air 163/89 01/27/17 11:52 94 Room Air 01/27/17 11:52 93 Room Air 01/27/17 11:07 36.3 59 18 175/96 96 Room Air General Appearance: no apparent distress Respiratory/Chest: no respiratory distress Abdomen: soft Laboratory Results: Results Past 24 Hours Test 01/27/17 11:39 01/27/17 11:42 01/27/17 11:45 01/27/17 16:05 Range/Units White Blood Count 10.00 4.8-10.8 K/uL Red Blood Count 5.27 4.7-6.1 M/uL Hemoglobin 16.0 14.0-18.0 g/dL Hematocrit 46.6 42-52 % Mean Corpuscular Volume 88.4 80-100 fL Mean Corpuscular Hemoglobin 30.4 25-34 pg Mean Corpuscular Hemoglobin Concent 34.3 32-36 g/dl Platelet Count 216 130-400 K/uL Mean Platelet Volume 10.8 7.4-10.4 fL Neutrophils (%) (Auto) 87.3 % Lymphocytes (%) (Auto) 8.5 % Monocytes (%) (Auto) 3.7 % Eosinophils (%) (Auto) 0.2 % Basophils (%) (Auto) 0.1 % Neutrophils # (Auto) 8.73 1.4-6.5 K/uL Lymphocytes # (Auto) 0.85 1.2-3.4 K/uL Monocytes # (Auto) 0.37 0.11-0.59 K/uL Eosinophils # (Auto) 0.02 0-0.5 K/uL Basophils # (Auto) 0.01 0-0.2 K/uL RDW Standard Deviation 42.9 36.4-46.3 fL RDW Coefficient of Variation 13.3 11.5-14.5 % Immature Granulocyte % (Auto) 0.2 % Immature Granulocyte # (Auto) 0.02 0.00-0.02 K/uL Sodium Level 138 136-145 mmol/L Potassium Level 4.9 3.5-5.1 mmol/L Chloride Level 105 98-107 mmol/L Carbon Dioxide Level 28 21-32 mmol/L Anion Gap 5.0 21.0 16-25 mmol/L Blood Urea Nitrogen 18 7-18 mg/dl Creatinine 1.10 0.60-1.40 mg/dl Est Creatinine Clear Calc Drug Dose 96.8 ml/min Estimated GFR () 85.3 Estimated GFR (Non- 73.6 BUN/Creatinine Ratio 16.7 10-20 Random Glucose 354 70-99 mg/dl Calcium Level 9.1 8.5-10.1 mg/dl Total Bilirubin 0.9 0.2-1 mg/dl Direct Bilirubin 0.2 0-0.2 mg/dl Aspartate Amino Transf (AST/SGOT) 23 15-37 U/L Alanine Aminotransferase (ALT/SGPT) 56 12-78 U/L Alkaline Phosphatase 132 45-117 U/L Total Creatine Kinase 57 39-308 U/L Creatine Kinase MB 1.1 0.5-3.6 ng/ml Creatine Kinase MB Ratio 1.9 0-3.0 Total Protein 7.7 6.4-8.2 gm/dl Albumin 4.0 3.4-5.0 gm/dl Lipase 103 73-393 U/L Beta-Hydroxybutyric Acid 6.82 0.2-2.81 mg/dL Bedside D-Dimer 406 0-450 ng/mlFEU Bedside Troponin I 0.000 0-0.045 ng/ml Bedside Hemoglobin 17.3 14.0-18.0 g/dl Bedside Hematocrit 51 42-52 % Bedside Sodium 139 135-144 mEq/L Bedside Potassium 4.9 3.3-5.0 mEq/L Bedside Chloride 101 101-112 mEq/L Bedside Total CO2 23 24-31 mEq/l Bedside Blood Urea Nitrogen 20 7-18 mg/dl Bedside Creatinine 0.9 0.6-1.3 mg/dl Bedside Glucose (other) 347 70-99 mg/dl Bedside Ionized Calcium (Ruben) 1.22 1.12-1.32 mmol/l Bedside Glucose 241 70-99 mg/dl Test 01/27/17 18:04 01/27/17 20:46 01/28/17 00:07 01/28/17 03:00 Range/Units Bedside Glucose 206 190 189 148 70-99 mg/dl Test 01/28/17 05:11 Range/Units White Blood Count 8.47 4.8-10.8 K/uL Red Blood Count 4.56 4.7-6.1 M/uL Hemoglobin 13.9 14.0-18.0 g/dL Hematocrit 41.4 42-52 % Mean Corpuscular Volume 90.8 80-100 fL Mean Corpuscular Hemoglobin 30.5 25-34 pg Mean Corpuscular Hemoglobin Concent 33.6 32-36 g/dl RDW Standard Deviation 45.0 36.4-46.3 fL RDW Coefficient of Variation 13.6 11.5-14.5 % Platelet Count 190 130-400 K/uL Mean Platelet Volume 10.5 7.4-10.4 fL Assessment & Plan 01/28/17- for lap juan jose this am, pt on IV atbx 01/27/17- adm pt with acute cholecystitis- has Lg stone in neck of gallbladder. will place pt on IV fluids and IV atbx- ask medical team to see pt and proceed with lap juan jose, possible open operation - likely tomorrow am 01/27/17- adm pt with acute cholecystitis- has Lg stone in neck of gallbladder. will place pt on IV fluids and IV atbx- ask medical team to see pt and proceed with lap juan jose, possible open operation - likely tomorrow am
[2017-01-28 06:13] LABS: BUN/CREATININE RATIO 8.9 (10-20); CALCIUM 8.2 mg/dl (8.5-10.1); CREATININE 1.1 mg/dl (0.60-1.40); POTASSIUM 3.5 mmol/L (3.5-5.1)
[2017-01-28] MEDS ORDERED: BUPIVACAINE 0.5 % 5 MG/1 ML MPF 30ML VIAL ONE (07:00)
[2017-01-28] MEDS ORDERED: PROPOFOL IV EMULSION 10 MG/ML 20 ML VIAL IV ONE (07:06)
[2017-01-28] MEDS ORDERED: GLYCOPYRROLATE INJ 0.2 MG/ML VIAL ONE ×2 (07:06→07:54)
[2017-01-28] MEDS ORDERED: NEOSTIGMINE METHYLSULFATE 5 MG/5 ML SYR ONE (07:06)
[2017-01-28] MEDS ORDERED: MIDAZOLAM HCL 1 MG/ML 2ML VIAL ONE (07:06)
[2017-01-28] MEDS ORDERED: ROCURONIUM BROMIDE 10 MG/ML 5 ML VIAL ONE (07:06)
[2017-01-28] MEDS ORDERED: DEXAMETHASONE SOD INJ 4 MG/ML VIAL ONE (07:06)
[2017-01-28] MEDS ORDERED: FENTANYL CITRATE INJ 50 MCG/1 ML 2 ML VIAL ONE ×2 (07:06→09:09)
[2017-01-28] MEDS ORDERED: LIDOCAINE HCL 2% 2 ML VIAL (20MG/ML) ONE (07:06)
[2017-01-28] MEDS ORDERED: ONDANSETRON INJ 2 MG/ML 2 ML VIAL ONE ×2 (07:06→07:54)
[2017-01-28] MEDS ORDERED: PHENYLEPHRINE 100MCG/ML 5ML SYR IV PRN (07:15)
[2017-01-28] MEDS ORDERED: NALOXONE HCL 0.4 MG/1 ML VIAL/CARP IV PRN (07:15)
[2017-01-28] MEDS ORDERED: ATROPINE SULFATE 0.1 MG/ML 5ML SYR IV PRN (07:15)
[2017-01-28] MEDS ORDERED: FLUMAZENIL 0.1 MG/1 ML 10 ML VIAL IV PRN (07:15)
[2017-01-28] MEDS ORDERED: MEPERIDINE HCL 25 MG/ML CARP IV PRN (07:15)
[2017-01-28] MEDS ORDERED: ONDANSETRON INJ 2 MG/ML 2 ML VIAL IV PRN (07:15)
[2017-01-28] MEDS ORDERED: EpHEDrine SULFATE INJ 50 MG/ML AMP IV PRN (07:15)
[2017-01-28] MEDS ORDERED: LABETALOL HCL IV 5 MG/ML 20ML IV PRN (07:15)
--- NOTE | 2017-01-28 08:32 | [facility] Post Operative Brief Note ---
Immediate Operative Summary Operative Date Jan 28, 2017. Pre-Operative Diagnosis Acute cholecystitis Post-Operative Diagnosis Acute cholecystitis Procedure(s) Performed Laparoscopic Cholecystectomy Surgeon Dr. Sierra Compensation Manager Surgeon(s) nurses Estimated Blood Loss 20 ml Findings acute inflammation, hydrops Specimens A. Gallbladder Drains #15 Rd HERI to subhep space Anesthesia gen Complication(s) None Disposition Recovery Room / PACU
[2017-01-28] MEDS ORDERED: HYDR-5688 PO (08:37)
[2017-01-28] MEDS ORDERED: CIPR-255 PO (08:37)
--- NOTE | 2017-01-28 08:40 | Discharge Instructions ---
Discharge Instructions Date of Service Jan 28, 2017. Admission Reason for Admission: Cholecystitis Discharge Discharge Diagnosis / Problem: acute cholecystitis Discharge Goals Goal(s): Decrease discomfort, Improve function, Improve disease control Activity Recommendations Activity Limitations: as noted below Lifting Limitations: no more than 25 pounds Exercise/Sports Limitations: until after follow-up appointment May Resume Sexual Activity: when tolerated Shower/Bathe: tomorrow Driving or Machine Use: resume 3 days after discharge SPECIAL CARE INSTRUCTIONS: * Cover incisions and change daily for comfort/drainage. * Empty drain 2-3 times per day and record. * May use ibuprofen for pain as tolerated. * Expect some swelling and bruising. Call your doctor if: * Temperature above 101 degrees * Pain not relieved by pain medicine ordered * There is increased drainage or redness from any incision * You have any unanswered questions or concerns [phone]. FOLLOW UP VISIT: If not already scheduled, please call the office for a follow-up visit. for 02/02- drain removal OFFICE PHONE NUMBER: Dr. Sierra Office . Current Hospital Diet Patient's current hospital diet: Diabetes Type 2 Diet Discharge Diet Recommended Diet: Diabetes Type 2 Diet Procedures Procedures Performed: Laparoscopic Cholecystectomy Pending Studies Studies pending at discharge: no Medical Emergencies . Who to Call and When: Medical Emergencies: If at any time you feel your situation is an emergency, please call 911 immediately. . Non-Emergent Contact Non-Emergency issues call your: Primary Care Provider, Surgeon . "Provider Documentation" section prepared by Lester Sierra. VTE Core Measure Inpt VTE Proph given/why not?: Unfractionated heparin SQ, SCD's
[2017-01-28] MEDS: FENTANYL CITRATE INJ 50 MCG/1 ML 2 ML VIAL IV PRN ×4 (09:05→09:39)
[2017-01-28] MEDS ORDERED: NovoLOG PER UNIT CHARGE SC SCH (09:30)
[2017-01-28] MEDS ORDERED: KETOROLAC TROMETHAMINE 30 MG/ML VIAL IV STA (09:44)
[2017-01-28] MEDS: HYDROmorphone INJ 0.5 MG/0.5 ML SYR IV PRN ×2 (09:45→09:53)
[2017-01-28] MEDS ORDERED: MEPERIDINE HCL 50 MG/ML CARP ONE (09:48)
[2017-01-28] MEDS ORDERED: HYDROmorphone INJ 2 MG/ML SYR/VIAL ONE (09:50)
[2017-01-28] MEDS ORDERED: KETOROLAC TROMETHAMINE 30 MG/ML VIAL ONE (09:51)
--- NOTE | 2017-01-28 10:05 | OPERATIVE REPORT ---
DATE OF OPERATION: 01/28/2017 NAME OF OPERATION: Laparoscopic cholecystectomy. PREOPERATIVE DIAGNOSIS: Acute cholecystitis. POSTOPERATIVE DIAGNOSIS: Same with hydrops. STAFF SURGEON: Dr. Lester Sierra. ANESTHESIA: General. DESCRIPTION OF PROCEDURE: The patient was brought into the operating room and placed on the operating table in the supine position. His abdomen was prepped and draped in the usual fashion. Using 0.5% plain Marcaine, all incisions were anesthetized. Incision was made above the umbilicus, carrying dissection down to the fascia, opening the fascia, placing a Veress needle, producing pneumoperitoneum. A 11-mm port was placed at this level and then under visualization, three 5-mm ports were placed, 1 cephalad and 2 laterally. The patient was placed in reverse Trendelenburg position, rotated to the left. The gallbladder was distended. It was aspirated of bile. The bile was clear, indicating hydrops. The gallbladder was then retracted. The patient had a stone in the neck of the gallbladder, which was very large. The rudi hepatis was dissected free, identifying the cystic duct and cystic artery. These were clipped and transected and then the gallbladder dissected away from the liver bed. There was edema in the posterior wall of the gallbladder. The gallbladder was placed in an Endobag. After appropriate hemostasis and irrigation, a 15 round Jose-Chaves drain was placed through the lateral 5-mm port site into the subhepatic space and secured to the skin using 3-0 nylon suture. All ports were then removed. The gallbladder was removed through the umbilical site. I did have to enlarge the fascial defect and skin because of the very large stone. The fascia was closed at the umbilicus using #1 PDS suture in an interrupted fashion. Skin reapproximated at all incisions using 4-0 nylon suture. The patient was transferred to recovery room in stable condition. I attest to the content of the Intraoperative Record and any orders documented therein. Any exceptio ns are noted below.
--- NOTE | 2017-01-28 10:16 | Anesthesiology Progress Note ---
Anesthesia Post Op Note Date & Time Jan 28, 2017 at 10:15 Vital Signs Pain Intensity: 4 Vital Signs Past 12 Hours Date Time Temp Pulse Resp B/P Pulse Ox O2 Delivery O2 Flow Rate FiO2 01/28/17 10:13 36.9 01/28/17 10:05 112/57 01/28/17 10:04 70 16 95 01/28/17 10:04 69 16 01/28/17 10:00 116/57 01/28/17 09:59 62 16 96 01/28/17 09:59 62 16 01/28/17 09:55 118/59 01/28/17 09:54 62 16 01/28/17 09:54 16 01/28/17 09:50 118/60 01/28/17 09:49 59 14 01/28/17 09:49 72 14 95 01/28/17 09:45 121/62 01/28/17 09:44 65 16 96 01/28/17 09:44 64 16 01/28/17 09:40 123/59 01/28/17 09:39 72 16 96 01/28/17 09:39 69 16 01/28/17 09:35 130/64 01/28/17 09:34 67 16 01/28/17 09:34 70 16 98 01/28/17 09:30 143/80 01/28/17 09:29 55 16 94 01/28/17 09:29 56 16 01/28/17 09:25 124/58 01/28/17 09:24 56 16 93 01/28/17 09:24 56 16 01/28/17 09:23 57 16 01/28/17 09:23 56 16 94 01/28/17 09:20 142/83 01/28/17 09:18 61 16 01/28/17 09:18 60 16 92 01/28/17 09:15 115/63 01/28/17 09:13 62 16 91 01/28/17 09:13 63 16 01/28/17 09:10 140/83 01/28/17 09:08 57 16 93 01/28/17 09:08 58 16 01/28/17 09:05 144/87 01/28/17 09:03 65 16 96 01/28/17 09:03 65 16 01/28/17 09:00 112/76 01/28/17 08:58 71 16 95 01/28/17 08:58 71 16 01/28/17 08:55 144/79 01/28/17 08:53 67 16 96 01/28/17 08:53 67 16 01/28/17 08:50 143/80 01/28/17 08:48 69 16 01/28/17 08:48 69 16 96 01/28/17 08:45 145/82 01/28/17 08:43 36.5 74 16 141/82 94 Mask 10 01/28/17 08:43 78 16 141/82 94 01/28/17 08:43 75 16 01/27/17 23:33 36.7 58 16 114/66 94 Room Air Notes Mental Status: alert / awake / arousable, participated in evaluation Pt Amnestic to Procedure: Yes Nausea / Vomiting: adequately controlled Pain: adequately controlled Airway Patency, RR, SpO2: stable & adequate BP & HR: stable & adequate Hydration State: stable & adequate Anesthetic Complications: no major complications apparent
[2017-01-28 12:24] LABS: PROTHROMBIN TIME (PATIENT) 10.8 SECONDS (9.0-12.0)
[2017-01-28] MEDS: INSULIN GLARGINE SOLOSTAR 100 UNITS/ML 3 ML PEN SC SCH ×2 (12:54→21:17)
--- NOTE | 2017-01-28 14:06 | Pharmacy Progress Note ---
Glycemic Control: Progress Nt Date of Service Jan 28, 2017. Scope Glycemic Pharmacist consulted by Natacha Joe on 01/27/17 for glycemic control and to write orders per [facility] inpatient glycemic control protocol. Objective Accuchecks BSG (last 24hrs): Test 01/27/17 16:05 01/27/17 18:04 01/27/17 20:46 01/28/17 00:07 Bedside Glucose 241 mg/dl (70-99) 206 mg/dl (70-99) 190 mg/dl (70-99) 189 mg/dl (70-99) Test 01/28/17 03:00 01/28/17 05:11 01/28/17 06:05 01/28/17 08:47 Bedside Glucose 148 mg/dl (70-99) 164 mg/dl (70-99) 208 mg/dl (70-99) Random Glucose 167 mg/dl (70-99) Test 01/28/17 12:17 Bedside Glucose 245 mg/dl (70-99) Laboratory Data (last 24hrs) Test 01/28/17 05:11 Anion Gap 4.0 mmol/L BUN/Creatinine Ratio 8.9 Blood Urea Nitrogen 10 mg/dl Creatinine 1.10 mg/dl Potassium Level 3.5 mmol/L Sodium Level 142 mmol/L White Blood Count 8.47 K/uL Recent Pertinent Medications Outpatient Anti-diabetic Regimen: * metformin ER 1000mg PO daily * A1c = 12 % 01/2017 per [facility] records The patient is currently receiving: * Basal insulin: Lantus 5 units every 12 hours * Correctional Insulin: NovoLog Correction per scale AC+HS+02 Goal Range: Low 140 mg/dL - High 180 mg/dL Correction Factor: 30 mg/dL/unit * Prandial insulin: Per carb ratio of 1 unit per 15 grams CHO consumed * Oral Agents: on hold currently Risk Factors for Insulin Resistance: * Steroids: Dexamethasone 8mg in OR today * Infection: cefoxitin for cholecystitis * IVF: LR @ 80mL/hr * Recent Surgery: POD #0 cholecystectomy * Diet: NPO --> T2DM Assessment & Plan ASSESSMENT: * ADA & AACE recommend a goal blood sugar range 140-180 mg/dl for the majority of critically ill & non-critically ill patients. However, more stringent targets may be selected in individual cases. 01/27/17 * Recent HbA1c of 12% shows poor diabetic control. He was only recently restarted on metformin (per H&P). He is insulin-naive and appears to be sensitive to insulin. Elevated blood glucose >350 upon presentation to the ED earlier this morning. He received 6 units of regular insulin x 1 at ~1503. Blood glucose improved to 206 ~3 hours after IV dose. * He is ordered a clear liquid diet, but is currently not eating per his RN. Furthermore, he will be NPO after midnight for procedure on 01/28/17. Therefore , will give a very conservative dose of Lantus (reduced 75% from calculated dose based on his weight). Novolog scale also loosened from weight-based. Once patient recovers and is eating a regular diet, likely will need significantly more insulin. 01/28/17 * BSGs responded nicely to IV insulin yesterday and the patient remained near or at goal until postoperatively today. * dexamethasone given in OR likely contributing to hyperglycemia * Intraoperative steroids * tighten NovoLog parameters based on weight and a stress of 2 * Increase Lantus dose, though not as aggressively since the patient is somewhat insulin sensitive and steroids not ongoing * continue to hold metformin until closer to discharge * may need additional diabetic medications at D/C with A1c >10% PLAN FOR INPATIENT GLYCEMIC CONTROL: * Holding outpatient oral diabetes medications; consider restart Metformin after surgery * Basal insulin: Lantus SQ BID * 5 units if BSG is less than 100mg/dL * 10 units if BSG is 100-140mg/dL * 15 units if BSG is above 140mg/dL * Bolus Insulin with NovoLog per scale AC//02 * Goal Range: Low 110 mg/dL - High 140 mg/dL for tighter glycemic control postoperatively * Correction Factor: 20 mg/dL/unit * Nutritional / Prandial insulin per carb ratio of 1 unit per 7 grams CHO consumed * A1c added to discharge instructions RECOMMENDATIONS FOR DISCHARGE: * awaited, may benefit from CDE consult * Please note that the plan above was derived based on current level of insulin resistance and hospital stress. These recommendations are appropriate for inpatient admission only. Plan of care upon discharge will need to be reassessed to avoid potential outpatient hypo/hyperglycemia. Thank you.
[2017-01-28] MEDS ORDERED: MAGNESIUM HYDROXIDE SUSP 30 ML UDC PO SCH (19:00)
[2017-01-28] MEDS: MAGNESIUM HYDROXIDE SUSP 30 ML UDC PO SCH (21:03)
[2017-01-28] MEDS: DOCUSATE SODIUM/SENNA 50/8.6MG TAB PO SCH (21:03)
[2017-01-28] MEDS: HEPARIN SOD 5000 UNIT/0.5 ML CARP SQ SCH (21:17)
[2017-01-29] MEDS ORDERED: INSULIN ASPART 100 UNITS/ML 3 ML PEN SC SCH (02:00)
[2017-01-29 02:05] VITALS: BP 125/70; TEMP 36.8
[2017-01-29 04:03] VITALS: BP 130/70; PULSE 72; TEMP 36.6; O2SAT 92
[2017-01-29] MEDS: CEFOXITIN IV 1,000 MG in DEXTROSE 5% 50ML 50 ML IV SCH ×2 (04:07→09:44)
[2017-01-29] MEDS: LACTATED RINGER'S 1000ML 1,000 ML IV SCH (05:26)
--- NOTE | 2017-01-29 06:34 | Surgery Progress Note ---
Surgery Progress Note Date of Service Jan 29, 2017. Subjective + flatus, No bowel movement, No nausea, No vomiting afeb, awake , alert Objective Vital Signs: Date Time Temp Pulse Resp B/P Pulse Ox O2 Delivery O2 Flow Rate FiO2 01/29/17 04:03 36.6 72 16 130/70 92 Room Air 01/29/17 02:05 36.8 125/70 01/28/17 23:45 Room Air 01/28/17 22:54 37.6 71 16 148/76 91 Room Air 01/28/17 20:30 36.8 68 18 133/77 93 Room Air 01/28/17 15:40 Room Air 01/28/17 15:21 36.7 70 18 147/79 95 Nasal Cannula 2.0 01/28/17 13:45 Nasal Cannula 4.0 01/28/17 13:31 36.5 68 17 132/71 94 Nasal Cannula 2.0 01/28/17 12:30 36.6 78 18 139/81 93 Nasal Cannula 2.0 01/28/17 11:23 36.4 70 18 135/78 95 Nasal Cannula 2.0 01/28/17 11:00 36.2 69 16 133/81 93 Nasal Cannula 4.0 Humidified Oxygen 01/28/17 10:30 91 Nasal Cannula 4.0 01/28/17 10:30 91 Nasal Cannula 4.0 01/28/17 10:30 36.8 59 16 133/78 91 Nasal Cannula 4.0 Humidified Oxygen 01/28/17 10:16 59 16 96 01/28/17 10:16 59 16 01/28/17 10:15 137/76 01/28/17 10:13 36.9 01/28/17 10:11 64 16 01/28/17 10:11 61 16 95 01/28/17 10:10 138/77 01/28/17 10:06 75 16 96 01/28/17 10:06 73 16 01/28/17 10:05 112/57 01/28/17 10:04 70 16 95 01/28/17 10:04 69 16 01/28/17 10:00 116/57 01/28/17 09:59 62 16 96 01/28/17 09:59 62 16 01/28/17 09:55 118/59 01/28/17 09:54 62 16 4/16/17 09:54 16 416/17 09:50 118/60 16/17 09:49 59 14 16/17 09:49 72 14 95 16/17 09:45 121/62 16/17 09:44 65 16 96 416/17 09:44 64 16 4/16/17 09:40 123/59 16/17 09:39 72 16 96 16/17 09:39 69 16 16/17 09:35 130/64 16/17 09:34 67 16 416/17 09:34 70 16 98 16/17 09:30 143/80 16/17 09:29 55 16 94 16/17 09:29 56 16 16/17 09:25 124/58 16/17 09:24 56 16 93 16/17 09:24 56 16 16/17 09:23 57 16 16/17 09:23 56 16 94 16/17 09:20 142/83 16/17 09:18 61 16 16/17 09:18 60 16 92 16/17 09:15 115/63 16/17 09:13 62 16 91 16/17 09:13 63 16 16/17 09:10 140/83 16/17 09:08 57 16 93 16/17 09:08 58 16 16/17 09:05 144/87 16/17 09:03 65 16 96 16/17 09:03 65 16 16/17 09:00 112/76 16/17 08:58 71 16 95 16/17 08:58 71 16 16/17 08:55 144/79 16/17 08:53 67 16 96 16/17 08:53 67 16 4/16/17 08:50 143/80 16/17 08:48 69 16 4/16/17 08:48 69 16 96 /16/17 08:45 145/82 16/17 08:43 36.5 74 16 141/82 94 Mask 10 16/17 08:43 78 16 141/82 94 16/17 08:43 75 16 Physical Exam: HERI drainage (serous) General Appearance: no apparent distress Respiratory/Chest: no respiratory distress Abdomen: normal bowel sounds, + distended Incision(s): intact Laboratory Results: Results Past 24 Hours Test 01/28/17 08:47 01/28/17 11:45 01/28/17 12:17 01/28/17 17:00 Range/Units Bedside Glucose 208 245 232 70-99 mg/dl Prothrombin Time 10.8 9.0-12.0 SECONDS Prothromb Time International Ratio 1.0 0.9-1.1 Test 01/28/17 20:28 01/29/17 02:01 Range/Units Bedside Glucose 196 166 70-99 mg/dl Assessment & Plan 01/29/17- s/p lap juan jose, drain placed- acute dz w/ 2 Lg stones in neck no bm , but normal bowel sounds and relatively soft adv diet, cont sen s and MOM. see how he does this am 01/28/17- for lap juan jose this am, pt on IV atbx 01/27/17- adm pt with acute cholecystitis- has Lg stone in neck of gallbladder. will place pt on IV fluids and IV atbx- ask medical team to see pt and proceed with lap juan jose, possible open operation - likely tomorrow am 01/28/17- for lap juan jose this am, pt on IV atbx 01/27/17- adm pt with acute cholecystitis- has Lg stone in neck of gallbladder. will place pt on IV fluids and IV atbx- ask medical team to see pt and proceed with lap juan jose, possible open operation - likely tomorrow am
[2017-01-29 07:08] VITALS: BP 136/72; PULSE 67; TEMP 37; O2SAT 94
[2017-01-29] MEDS: DOCUSATE SODIUM/SENNA 50/8.6MG TAB PO SCH (09:10)
[2017-01-29] MEDS: MAGNESIUM HYDROXIDE SUSP 30 ML UDC PO SCH (09:10)
[2017-01-29] MEDS: INSULIN ASPART 100 UNITS/ML 3 ML PEN SC SCH ×3 (09:11→12:54)
[2017-01-29] MEDS: INSULIN GLARGINE SOLOSTAR 100 UNITS/ML 3 ML PEN SC SCH (09:13)
[2017-01-29] MEDS: HEPARIN SOD 5000 UNIT/0.5 ML CARP SQ SCH (09:13)
--- NOTE | 2017-01-29 09:20 | Pharmacy Progress Note ---
Glycemic Control: Progress Nt Date of Service Jan 29, 2017. Scope Glycemic Pharmacist consulted by Natacha Joe PA-C on 01/27/17 for glycemic control and to write orders per [facility] inpatient glycemic control protocol. Objective Accuchecks BSG (last 24hrs): Test 01/28/17 12:17 01/28/17 17:00 01/28/17 20:28 01/29/17 02:01 Bedside Glucose 245 mg/dl (70-99) 232 mg/dl (70-99) 196 mg/dl (70-99) 166 mg/dl (70-99) Test 01/29/17 08:00 Bedside Glucose 163 mg/dl (70-99) Recent Pertinent Medications Outpatient Anti-diabetic Regimen: * metformin ER 1000mg PO daily * A1c = 12 % 01/2017 per [facility] records The patient is currently receiving: * Basal insulin: Lantus SQ every 12 hours * 5 units if BSG is less than 100mg/dL * 10 units if BSG is 100-140mg/dL * 15 units if BSG is above 140mg/dL * Correctional Insulin: NovoLog Correction per scale AC+HS+02 Goal Range: Low 110 mg/dL - High 140 mg/dL Correction Factor: 20 mg/dL/unit * Prandial insulin: Per carb ratio of 1 unit per 7 grams CHO consumed * Oral Agents: on hold currently Risk Factors for Insulin Resistance: * Infection: cefoxitin for cholecystitis * Recent Surgery: POD #1 cholecystectomy * Diet: T2DM Assessment & Plan ASSESSMENT: * ADA & AACE recommend a goal blood sugar range 140-180 mg/dl for the majority of critically ill & non-critically ill patients. However, more stringent targets may be selected in individual cases. 01/28/17 * BSGs responded nicely to IV insulin yesterday and the patient remained near or at goal until postoperatively today. * dexamethasone given in OR likely contributing to hyperglycemia * Intraoperative steroids * tighten NovoLog parameters based on weight and a stress of 2 * Increase Lantus dose, though not as aggressively since the patient is somewhat insulin sensitive and steroids not ongoing * continue to hold metformin until closer to discharge * may need additional diabetic medications at D/C with A1c >10% 01/29/17 * Patient received a total of 41 units yesterday. Of note, the patient should have been administered 15 units of Lantus at HS on 01/28, rather than dose of 8 units that was given (this would have made a total of 48 units). * Patient received an intra-operative dose of dexamethasone 8 mg IV yesterday, which contributed to hyperglycemia/insulin needs. * I anticipate insulin needs to decrease today since steroids are no longer a factor. * I suspect patient will require 20-30 units per day of basal insulin moving forward PLAN FOR INPATIENT GLYCEMIC CONTROL: * Holding outpatient oral diabetes medications; will consider restarting Metformin this evening * Basal insulin: Lantus SQ BID * 5 units if BSG is less than 100mg/dL * 10 units if BSG is 100-140mg/dL * 15 units if BSG is above 140mg/dL * Bolus Insulin with NovoLog per scale AC//02 * Goal Range: Low 110 mg/dL - High 140 mg/dL for tighter glycemic control postoperatively * Correction Factor: 20 mg/dL/unit * Nutritional / Prandial insulin per carb ratio of 1 unit per 7 grams CHO consumed * A1c added to discharge instructions LOOKING AHEAD FOR DISCHARGE: * System Safety Manager consulted on 01/28. Pharmacy will coordinate plan for outpatient regimen with System Safety Manager, patient, and hospitalist. * Uncontrolled type 2 diabetic on metformin ER 1,000 mg daily with recent A1c of 12% (01/16/17). * ADA recommends initiating combination injectable therapy with metformin + basal insulin + mealtime insulin or GLP-1 agonist when A1c is > 10%. * Maximize metformin dosing - recommend increasing daily dose by 500 mg per week up to 2,000 mg daily (with evening meal preferred) * Add basal insulin with Lantus - recommend starting at 25 units SQ daily * Consider addition of meal time insulin - initiate 12 units with the largest meal of the day RECOMMENDATIONS FOR DISCHARGE: * Contacted Dr. Alfaro to notify him of approaching discharge (patient discharged by surgery - hospitalist had not seen patient since 01/27 pm). Discussed discharge plans with Dr. Alfaro. Per Dr. Alfaro, the patient was on metformin previously and then stopped taking the medication. Recent elevated A1c of 12% was drawn while patient was off of medication. Patient re-started metformin about one week ago. Dr. Alfaro confirmed that patient has follow up scheduled with Dr. Alvarado on 02/19/17. * Please note that the plan above was derived based on current level of insulin resistance and hospital stress. These recommendations are appropriate for inpatient admission only. Plan of care upon discharge will need to be reassessed to avoid potential outpatient hypo/hyperglycemia. Thank you.
[2017-01-29 11:00] VITALS: Ht 185.4 cm; Wt 114.0 kg
[2017-01-29 14:20] VITALS: BP 136/72; PULSE 67; TEMP 37; O2SAT 94
--- NOTE | 2017-01-29 16:14 | DISCHARGE SUMMARY ---
ATTENDING: Dr. Sierra. PRIMARY DISCHARGE DIAGNOSIS: Acute cholecystitis. SECONDARY DISCHARGE DIAGNOSIS: Type 2 diabetes. PROCEDURE PERFORMED: Laparoscopic cholecystectomy. CONSULTATIONS: [facility]ist to assist in management of diabetes. HOSPITAL COURSE: The patient is a 56-year-old male who presented to the Emergency Department with a complaint of mid scapular pain. Ultrasound showed a 2.5 cm stone in the neck of the gallbladder with some pericholecystic fluid and gallbladder wall thickening. He was admitted to the surgery service, started on IV antibiotics that evening. He was seen by the medical service as well. The next morning he was taken to the operating room for laparoscopic cholecystectomy. The procedure was well tolerated. He did have acute cholecystitis and hydrops. He was continued on IV Mefoxin and sliding scale insulin. On postoperative day #1, he was tolerating diet and oral analgesics. His white count remained normal. His abdomen was soft and the HERI drainage was 30 mL over the past 8 hours. DISCHARGE INSTRUCTIONS: Discharge home with the HERI drain. He will follow up in 4 days on Sunday to have the drain removed. DISCHARGE MEDICATIONS: Cipro 500 mg p.o. b.i.d. x5 and [place] 1-2 tablets every 6 hours as needed and he may resume Glucophage 1000 mg daily. MTDD
== END 2017-01-29 14:55 | disposition home or self-care (01) | DRG 418 ==
LOC: ENRESERVDT → ENRESERVTM → C.EDB 11:02 → C.MSW 16:27
PROVIDERS: ADMIT Surgery; ATTEND Surgery
PROC: 0FT44ZZ Resection of Gallbladder, Percutaneous Endoscopic Approach (ICD-10-PCS; principal; 2017-01-28 07:30)
DX: K80.00 Calculus of gallbladder with acute cholecystitis without obstruction (principal); K82.1 Hydrops of gallbladder; E11.65 Type 2 diabetes mellitus with hyperglycemia; G47.33 Obstructive sleep apnea (adult) (pediatric); E66.9 Obesity, unspecified; Z68.33 Body mass index [BMI] 33.0-33.9, adult; Z79.84 Long term (current) use of oral hypoglycemic drugs

== ENCOUNTER 2019-01-01 09:46 | Inpatient (IN) ==
[2019-01-01] MEDS ORDERED: ONDANSETRON INJ 2 MG/ML 2 ML VIAL IV STA (10:04)
[2019-01-01] MEDS ORDERED: MoRPHine SULFATE 4 MG/ML 1 ML CARP\\VIAL IV STA (10:04)
[2019-01-01] MEDS ORDERED: FAMOTIDINE 20MG/5ML IV PUSH IV STA (10:12)
[2019-01-01] MEDS ORDERED: SODIUM CHLORIDE 0.9% 1000ML 1,000 ML IV SCH (10:15)
[2019-01-01 10:55] LABS: Basophils # (auto) 0.01 K/uL (0-0.2); Basophils % (auto) 0.1 %; Eosinophils # (auto) 0.12 K/uL (0-0.5); Hematocrit (blood only) 53.3 % (42-52); Hemoglobin 18.4 g/dL (14.0-18.0); Immature Granulocytes # (auto) 0.04 K/uL (0.00-0.02); Immature Granulocytes % (auto) 0.3 %; Lymphocytes # (auto) 0.84 K/uL (1.2-3.4); Lymphocytes % (auto) 7.2 %; Mean Corpuscular Hgb Conc 34.5 g/dL (32-36); Mean Platelet Volume 10.1 fL (7.4-10.4); Monocytes # (auto) 0.93 K/uL (0.11-0.59); Monocytes % (auto) 7.9 %; Neutrophils # (auto) 9.79 K/uL (1.4-6.5); Neutrophils % (auto) 83.5 %; Platelet Count 200 K/uL (130-400); RDW Coefficient of Variation 14.3 % (11.5-14.5); RDW Standard Deviation 46.4 fL (36.4-46.3); Red Blood Count 5.92 M/uL (4.7-6.1); White Blood Count 11.73 K/uL (4.8-10.8)
[2019-01-01 11:15] LABS: Alanine Aminotransferase 78 U/L (12-78); Albumin Level 3.8 gm/dl (3.4-5.0); Aspartate Aminotransferase 37 U/L (15-37); BUN Creatinine Ratio 21.5 (10-20); Blood Urea Nitrogen 23 mg/dl (7-18); Calcium 9.6 mg/dl (8.5-10.1); Carbon Dioxide 25 mmol/L (21-32); Chloride 107 mmol/L (98-107); Creatinine Clr Calc Pharmacy 101.5 ml/min; Est GFR (Non-African American) 76.8; Glucose 182 mg/dl (70-99); Potassium 4.4 mmol/L (3.5-5.1); Sodium 138 mmol/L (136-145)
[2019-01-01 11:19] LABS: Albumin Globulin Ratio 0.9 (0.9-2); Alkaline Phosphatase 155 U/L (45-117); Bilirubin,Total 0.9 mg/dl (0.2-1); Globulin 4.2 gm/dl (2.5-4.0); Troponin I < 0.015 ng/ml (0-0.045)
[2019-01-01] MEDS ORDERED: MoRPHine SULFATE 10 MG/ML CARP/VIAL IV STA (12:09)
[2019-01-01] MEDS ORDERED: IOVERSOL 100ml IV PRN (12:51)
--- NOTE | 2019-01-01 13:25 | CT Scan Report ---
ABDOMEN AND PELVIS CT WITH IV CONTRAST CT DOSE: 1327.50 mGy.cm HISTORY: Acute generalized abdominal pain and low back pain abdominal pain, lower back pain TECHNIQUE: Multiaxial CT images of the abdomen and pelvis were performed following the use of intrave nous contrast. A dose lowering technique was utilized adhering to the principles of ALARA. COMPARISON STUDY: CTA of the chest 01/27/2017. FINDINGS: Dependent subsegmental bibasilar consolidation, right greater than left with right hemidiaphragmatic elevation is suggestive of probable atelectasis. There is no pneumatosis or pneumoperitoneum identifi ed. Portions of the right lateral abdomen are outside the [id number]. Coronary arterial calcificat ions are noted. Imaged inferior cardiac chambers appear unremarkable. Enlarged mediastinal and hilar lymph nodes are partially imaged, new from comparison with subcarinal lymph nodes measuring up to 4.1 x 2.6 cm. Prior cholecystectomy. The liver, spleen, pancreas and adrenal glands appear unremarkable. Nonspecifi c prominent a mildly enlarged periportal and portacaval lymph nodes are present measuring up to 1.6 c m in short axis. Aorta and IVC are within normal limits. Mildly prominent periaortic lymph nodes are also noted. Kidneys, ureters, urinary bladder and prostate are unremarkable. Small fat filled left inguinal herni a. No bowel obstruction. Multiple fluid-filled loops of small bowel which are nondilated, likely phys iologic. Decompressed sigmoid. Minimal colonic diverticulosis without acute diverticulitis. Terminal ileum and appendix appear unremarkable. No ascites or mesenteric inflammation. Soft tissues are unrem arkable. Bones appear to be intact. No suspicious bone lesions. IMPRESSION: 1. No bowel obstruction or focal bowel wall thickening. Normal appendix. 2. Mild colonic diverticulosis without acute diverticulitis. 3. Partially imaged bulky mediastinal and hilar adenopathy is new from 01/27/2017. Additionally, perip ortal, pericaval and mild abdominal periaortic adenopathy is present. Correlate clinically to exclude underlying lymphoproliferative disorder. 4. Prior cholecystectomy. 5. Coronary arterial calcifications. Electronically signed by: Jordy Wong M.D. 01/01/2019 1:24 PM
--- NOTE | 2019-01-01 14:39 | XRay Report ---
TWO VIEW CHEST CLINICAL HISTORY: Generalized abdominal pain.. FINDINGS: AP and lateral chest radiographs are compared to chest x-ray and chest CT dated 01/27/2017. Correlation is made with abdominal CT performed the same day 01/01/2019. The AP view is degraded by pa tient rotation. The heart is top normal for projection. There is pulmonary vascular congestion with e vidence of interstitial edema. There is widening of the mediastinum, likely related to mediastinal an d hilar adenopathy when correlated with today's abdominal CT. There is bibasilar atelectasis. No pleu ral effusion is seen. There is no pneumothorax. The skeletal structures are osteopenic. The bony thor ax appears intact. IMPRESSION: 1. There is evidence of congestive failure and interstitial edema. 2. Bibasilar atelectasis. 3. No pleural effusion is identified. 4. There is widening mediastinum, likely related to mediastinal and hilar adenopathy when correlated with today's abdominal CT. Electronically signed by: Dontae Long M.D. 01/01/2019 2:37 PM
[2019-01-01 15:36] LABS: Appearance Urine Clear (Clear); Bilirubin Urine Negative (Negative); Blood Urine Negative (Negative); Color Urine Yellow; Glucose Urine UA 3+ (Negative); Ketones Urine Negative (Negative); Leukocyte Esterase Urine Negative (Negative); Nitrite Urine Negative (Negative); Protein Urine Negative (Negative); Specific Gravity Urine > 1.045 (1.000-1.030); Urobilinogen Urine Negative (Negative)
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
[2019-01-01] MEDS ORDERED: ACETAMINOPHEN 325 MG TAB PO PRN (16:14)
[2019-01-01] MEDS ORDERED: GLUCOSE 40% GEL 15 GM TUBE PO PRN (16:14)
[2019-01-01] MEDS ORDERED: GLUCAGON FOR INJ 1 MG VIAL SQ PRN (16:14)
[2019-01-01] MEDS ORDERED: DEXTROSE 50% 50 ML SYRINGE IV PRN (16:14)
[2019-01-01] MEDS ORDERED: CARBOHYDRATES FOR HYPOGLYCEMIA PO PRN (16:14)
[2019-01-01] MEDS ORDERED: GLUCOSE 10 TABS/TUBE PO PRN (16:14)
[2019-01-01] MEDS ORDERED: MoRPHine SULFATE 4 MG/ML 1 ML CARP\\VIAL IV PRN (16:14)
--- NOTE | 2019-01-01 16:42 | Emergency Department Note ---
Entered by Rusty Arteaga acting as a scribe for Anival Mcnair M.D. History of Present Illness General Chief complaint: Flank Pain Stated complaint: ABD PAIN INTO BACK Source: patient History of Present Illness Onset (ago): hour(s) (03:00 this morning) Location: back and abdomen Pain Consistency: + constant Quality: + other (constant diffuse abdominal and lower back pain) Associated symptoms: + other (nausea without vomiting; denies recent falls, trauma, chest pain, or bloody stools) The patient is a 58 year old male who presents to the Emergency Room with complaints of constant diffuse abdominal and lower back pain beginning at 03:00 this morning. The patient that his pain is bilateral and is not worse in one location. He notes that his pain woke him from sleep this morning. He reports some nausea but denies vomiting. He denies recent falls, trauma, chest pain, or bloody stools. He states that he has not taken anything for pain and has not eaten this morning. He reports a history of cholecystectomy. His current pain feels somewhat similar to the pain prior to that procedure, although at that time the pain was primarily in the area of his shoulder blades. He also notes a history of hernia repair. He states that he does not smoke. He notes that he takes metformin for diabetes, and he denies other medical problems. Home Medications Home Medications Medication Instructions Recorded Confirmed Type aspirin 81 mg PO DAILY 01/01/19 01/01/19 History atorvastatin 20 mg PO DAILY 01/01/19 01/01/19 History empagliflozin [Jardiance] 25 mg PO DAILY 01/01/19 01/01/19 History fexofenadine-pseudoephedrine 1 tab PO QAM 01/01/19 01/01/19 History [Zoila-D 24 Hour] metformin 500 mg PO BID 01/01/19 01/01/19 History montelukast 10 mg PO DAILY 01/01/19 01/01/19 History Allergies Allergy/AdvReac Type Severity Reaction Status Date / Time codeine AdvReac Unknown DIZZINESS Verified 01/27/17 11:28 Past Med/Surg History Medical History HLD (hyperlipidemia) (Chronic) Diabetes mellitus, type II (Chronic) Chronic rhinitis (Chronic) Surgical History History of colonoscopy (Resolved) History of cholecystectomy (Chronic) History of tonsillectomy (Chronic) H/O inguinal hernia repair (Chronic) Family History Other Coronary heart disease Skin cancer Social History Feels Safe at Home: Yes Smoking Status: Never smoker Hx Alcohol Use: Yes Hx Substance Use: No Review of Systems See HPI for pertinent positives & negatives. and A total of 10 systems reviewed and were otherwise negative Physical Exam Vital Signs Vital Signs - 24 hr 01/01/19 10:00 01/01/19 10:29 01/01/19 11:00 Temperature 36.7 C Temperature Source Oral Sepsis Recent Fever Within 48 Hours No Sepsis Action Taken by Nursing No Action Required Pulse Rate 96 H 88 89 Pulse Rate from SpO2 Sensor 89 Pulse Rhythm Regular Respiratory Rate 20 19 Respiratory Effort / Characteristics Non-Labored Respiratory Depth Normal Blood Pressure 129/81 143/80 H Blood Pressure [Left Arm] Blood Pressure Mean 97 101 Blood Pressure Mean [Left Arm] Blood Pressure Position [Left Arm] Pulse Oximetry 94 96 94 Oxygen Delivery Method Room Air Nasal Cannula Oxygen Flow Rate 2 01/01/19 11:30 01/01/19 12:01 01/01/19 12:31 Temperature Temperature Source Sepsis Recent Fever Within 48 Hours Sepsis Action Taken by Nursing Pulse Rate 92 H 87 88 Pulse Rate from SpO2 Sensor 93 H 87 88 Pulse Rhythm Respiratory Rate 17 18 15 Respiratory Effort / Characteristics Respiratory Depth Blood Pressure 131/82 131/68 113/70 Blood Pressure [Left Arm] Blood Pressure Mean 98 89 84 Blood Pressure Mean [Left Arm] Blood Pressure Position [Left Arm] Pulse Oximetry 93 93 93 Oxygen Delivery Method Oxygen Flow Rate 01/01/19 13:00 01/01/19 13:30 01/01/19 14:00 Temperature Temperature Source Sepsis Recent Fever Within 48 Hours Sepsis Action Taken by Nursing Pulse Rate 88 88 90 Pulse Rate from SpO2 Sensor 88 88 89 Pulse Rhythm Respiratory Rate 16 15 17 Respiratory Effort / Characteristics Respiratory Depth Blood Pressure 129/74 121/71 132/78 Blood Pressure [Left Arm] Blood Pressure Mean 92 87 96 Blood Pressure Mean [Left Arm] Blood Pressure Position [Left Arm] Pulse Oximetry 94 93 94 Oxygen Delivery Method Oxygen Flow Rate 01/01/19 15:22 01/01/19 15:30 01/01/19 16:14 Temperature 37.2 C Temperature Source Oral Sepsis Recent Fever Within 48 Hours Sepsis Action Taken by Nursing Pulse Rate 88 90 Pulse Rate from SpO2 Sensor 88 88 Pulse Rhythm Respiratory Rate 17 14 20 Respiratory Effort / Characteristics Non-Labored Spontaneous Respiratory Depth Normal Blood Pressure 133/79 133/92 Blood Pressure [Left Arm] 154/84 H Blood Pressure Mean 97 105 Blood Pressure Mean [Left Arm] 107 Blood Pressure Position [Left Arm] Lying Pulse Oximetry 92 93 93 Oxygen Delivery Method Nasal Cannula Oxygen Flow Rate 2 GENERAL: Awake, alert, appears uncomfortable HENT: Normocephalic, atraumatic. EYES: Normal conjunctiva. Sclera non-icteric. NECK: Supple. No nuchal rigidity. RESPIRATORY: Clear to auscultation. No wheezes. Normal respiratory effort. CARDIAC: Normal rate. Normal rhythm. Extremities warm and well perfused. GI: Soft, non-distended. Mild diffuse abdominal pain. No rebound or guarding. RECTAL: Deferred. MUSCULOSKELETAL: Atraumatic. Chest examination reveals no tenderness. LOWER EXTREMITIES: Calves are equal size bilaterally and non-tender. No edema NEURO: Normal sensorium. No sensory or motor deficits noted. No facial droop. SKIN: Warm and dry. No rash or jaundice noted. Course 1008: Past medical records reviewed. The patient was evaluated in room A11B, and a complete history and physical examination were performed. 1408: I consulted Bibiana Mahan PA-C: [facility] Hospitalist. The patient will be reevaluated for hospitalization. Consultations Consultation #1: I consulted Bibiana Mahan PA-C: [facility] Hospitalist. The patient will be reevaluated for hospitalization. Time: 14:08 Administered Medications Discontinued Medications Famotidine (Pepcid 20mg Iv Push) 20 mg IV ONE STA Stop: 01/01/19 10:13 Last Admin: 01/01/19 10:38 Dose: 20 mg Documented by: [id number] Sodium Chloride (Nss 1000ml) 1,000 mls @ 999 mls/hr IV .Q1H1M LOYDA Stop: 01/01/19 11:15 Last Infusion: 01/01/19 11:53 Dose: 0 mls/hr Documented by: [id number] Admin: 01/01/19 10:36 Dose: 999 mls/hr Documented by: [id number] Ioversol (Optiray 320 100ml) 93 ml IV ONCE PRN PRN Reason: Interaction Checking Stop: 01/05/19 12:50 Last Admin: 01/01/19 12:51 Dose: 93 ml Documented by: [id number] Morphine Sulfate (Morphine Sulfate) 4 mg IV NOW STA Stop: 01/01/19 10:05 Last Admin: 01/01/19 10:39 Dose: 4 mg Documented by: [id number] Morphine Sulfate (Morphine Sulfate) 6 mg IV NOW STA Stop: 01/01/19 12:10 Last Admin: 01/01/19 12:13 Dose: 6 mg Documented by: [id number] Ondansetron HCl (Zofran) 4 mg IV NOW STA Stop: 01/01/19 10:05 Last Admin: 01/01/19 10:38 Dose: 4 mg Documented by: [id number] Medical Decision Making Differential Diagnosis Differential diagnosis: Etiologies such as appendicitis, diverticulitis, PUD, biliary pathology, UTI, pancreatitis, obstruction, mesenteric ischemia, aortic pathology, infections, inflammatory bowel disease, renal colic, as well as others were entertained. Medical Records Attestation: I reviewed the patient's medical records. Home Medications Current Medication List: was personally reviewed by me Laboratory Data Attestation: I reviewed the patient's lab results. Result diagrams: 01/01/19 10:28 01/01/19 10:28 Lab Results 01/01/19 01/01/19 01/01/19 Range/Units 10:28 10:28 15:07 WBC 11.73 H (4.8-10.8) K/uL RBC 5.92 (4.7-6.1) M/uL Hgb 18.4 H (14.0-18.0) g/dL Hct 53.3 H (42-52) % MCV 90.0 (80-100) fL MCH 31.1 (25-34) pg MCHC 34.5 (32-36) g/dL RDW Std Deviation 46.4 H (36.4-46.3) fL RDW Coeff of Raul 14.3 (11.5-14.5) % Plt Count 200 (130-400) K/uL MPV 10.1 (7.4-10.4) fL Immature Gran % (Auto) 0.3 % Neut % (Auto) 83.5 % Lymph % (Auto) 7.2 % Gillespie % (Auto) 7.9 % Eos % (Auto) 1.0 % Baso % (Auto) 0.1 % Immature Gran # (Auto) 0.04 H (0.00-0.02) K/uL Neut # (Auto) 9.79 H (1.4-6.5) K/uL Lymph # (Auto) 0.84 L (1.2-3.4) K/uL Gillespie # (Auto) 0.93 H (0.11-0.59) K/uL Eos # (Auto) 0.12 (0-0.5) K/uL Baso # (Auto) 0.01 (0-0.2) K/uL Sodium 138 (136-145) mmol/L Potassium 4.4 (3.5-5.1) mmol/L Chloride 107 (98-107) mmol/L Carbon Dioxide 25 (21-32) mmol/L Anion Gap 6.0 (3-11) BUN 23 H (7-18) mg/dl Creatinine 1.05 (0.6-1.4) mg/dl Est Cr Clr Drug Dosing 101.5 ml/min Est GFR ( Amer) 89.0 Est GFR (Non-Af Amer) 76.8 BUN/Creatinine Ratio 21.5 H (10-20) Glucose 182 H (70-99) mg/dl POC Glucose (70-99) Lactate (0.4-2.0) mmol/L Calcium 9.6 (8.5-10.1) mg/dl Total Bilirubin 0.9 (0.2-1) mg/dl AST 37 (15-37) U/L ALT 78 (12-78) U/L Alkaline Phosphatase 155 H (45-117) U/L Troponin I < 0.015 (0-0.045) ng/ml Total Protein 8.0 (6.4-8.2) gm/dl Albumin 3.8 (3.4-5.0) gm/dl Globulin 4.2 H (2.5-4.0) gm/dl Albumin/Globulin Ratio 0.9 (0.9-2) Lipase 142 (73-393) U/L Urine Color Yellow Urine Appearance Clear (Clear) Urine pH 5.0 (4.5-7.5) Ur Specific [place] > 1.045 H (1.000-1.030) Urine Protein Negative (Negative) Urine Glucose (UA) 3+ H (Negative) Urine Ketones Negative (Negative) Urine Blood Negative (Negative) Urine Nitrite Negative (Negative) Urine Bilirubin Negative (Negative) Urine Urobilinogen Negative (Negative) Ur Leukocyte Esterase Negative (Negative) 01/01/19 01/01/19 Range/Units 15:20 16:09 WBC (4.8-10.8) K/uL RBC (4.7-6.1) M/uL Hgb (14.0-18.0) g/dL Hct (42-52) % MCV (80-100) fL MCH (25-34) pg MCHC (32-36) g/dL RDW Std Deviation (36.4-46.3) fL RDW Coeff of Raul (11.5-14.5) % Plt Count (130-400) K/uL MPV (7.4-10.4) fL Immature Gran % (Auto) % Neut % (Auto) % Lymph % (Auto) % Gillespie % (Auto) % Eos % (Auto) % Baso % (Auto) % Immature Gran # (Auto) (0.00-0.02) K/uL Neut # (Auto) (1.4-6.5) K/uL Lymph # (Auto) (1.2-3.4) K/uL Gillespie # (Auto) (0.11-0.59) K/uL Eos # (Auto) (0-0.5) K/uL Baso # (Auto) (0-0.2) K/uL Sodium (136-145) mmol/L Potassium (3.5-5.1) mmol/L Chloride (98-107) mmol/L Carbon Dioxide (21-32) mmol/L Anion Gap (3-11) BUN (7-18) mg/dl Creatinine (0.6-1.4) mg/dl Est Cr Clr Drug Dosing ml/min Est GFR ( Amer) Est GFR (Non-Af Amer) BUN/Creatinine Ratio (10-20) Glucose (70-99) mg/dl POC Glucose 151 H (70-99) Lactate 1.3 (0.4-2.0) mmol/L Calcium (8.5-10.1) mg/dl Total Bilirubin (0.2-1) mg/dl AST (15-37) U/L ALT (12-78) U/L Alkaline Phosphatase (45-117) U/L Troponin I (0-0.045) ng/ml Total Protein (6.4-8.2) gm/dl Albumin (3.4-5.0) gm/dl Globulin (2.5-4.0) gm/dl Albumin/Globulin Ratio (0.9-2) Lipase (73-393) U/L Urine Color Urine Appearance (Clear) Urine pH (4.5-7.5) Ur Specific [place] (1.000-1.030) Urine Protein (Negative) Urine Glucose (UA) (Negative) Urine Ketones (Negative) Urine Blood (Negative) Urine Nitrite (Negative) Urine Bilirubin (Negative) Urine Urobilinogen (Negative) Ur Leukocyte Esterase (Negative) Imaging Data Radiologist's Impression: Radiology results as stated below per my review and the radiologist's interpretation: ABDOMEN AND PELVIS CT WITH IV CONTRAST CT DOSE: 1327.50 mGy.cm HISTORY: Acute generalized abdominal pain and low back pain abdominal pain, lower back pain TECHNIQUE: Multiaxial CT images of the abdomen and pelvis were performed following the use of intravenous contrast. A dose lowering technique was utilized adhering to the principles of ALARA. COMPARISON STUDY: CTA of the chest 01/27/2017. FINDINGS: Dependent subsegmental bibasilar consolidation, right greater than left with right hemidiaphragmatic elevation is suggestive of probable atelectasis. There is no pneumatosis or pneumoperitoneum identified. Portions of the right lateral abdomen are outside the [id number]. Coronary arterial calcifications are noted. Imaged inferior cardiac chambers appear unremarkable. Enlarged mediastinal and hilar lymph nodes are partially imaged, new from comparison with subcarinal lymph nodes measuring up to 4.1 x 2.6 cm. Prior cholecystectomy. The liver, spleen, pancreas and adrenal glands appear unremarkable. Nonspecific prominent a mildly enlarged periportal and portacaval lymph nodes are present measuring up to 1.6 cm in short axis. Aorta and IVC are within normal limits. Mildly prominent periaortic lymph nodes are also noted. Kidneys, ureters, urinary bladder and prostate are unremarkable. Small fat filled left inguinal hernia. No bowel obstruction. Multiple fluid-filled loops of small bowel which are nondilated, likely physiologic. Decompressed sigmoid. Minimal colonic diverticulosis without acute diverticulitis. Terminal ileum and appendix appear unremarkable. No ascites or mesenteric inflammation. Soft tissues are unremarkable. Bones appear to be intact. No suspicious bone lesions. IMPRESSION: 1. No bowel obstruction or focal bowel wall thickening. Normal appendix. 2. Mild colonic diverticulosis without acute diverticulitis. 3. Partially imaged bulky mediastinal and hilar adenopathy is new from 01/27/2017. Additionally, periportal, pericaval and mild abdominal periaortic adenopathy is present. Correlate clinically to exclude underlying lymphoproliferative disorder. 4. Prior cholecystectomy. 5. Coronary arterial calcifications. Electronically signed by: Jordy Wong M.D. 01/01/2019 1:24 PM TWO VIEW CHEST CLINICAL HISTORY: Generalized abdominal pain.. FINDINGS: AP and lateral chest radiographs are compared to chest x-ray and chest CT dated 01/27/2017. Correlation is made with abdominal CT performed the same day 01/01/2019. The AP view is degraded by patient rotation. The heart is top normal for projection. There is pulmonary vascular congestion with evidence of interstitial edema. There is widening of the mediastinum, likely related to mediastinal and hilar adenopathy when correlated with today's abdominal CT. There is bibasilar atelectasis. No pleural effusion is seen. There is no pneumothorax. The skeletal structures are osteopenic. The bony thorax appears intact. IMPRESSION: 1. There is evidence of congestive failure and interstitial edema. 2. Bibasilar atelectasis. 3. No pleural effusion is identified. 4. There is widening mediastinum, likely related to mediastinal and hilar adenop athy when correlated with today's abdominal CT. Electronically signed by: Dontae Long M.D. 01/01/2019 2:37 PM ECG Data Attestation: I personally reviewed and interpreted this ECG as follows: Indication: abdominal pain Rate (beats per minute): 89 Rhythm: normal sinus Findings: + other (normal axis); no ST depression and no ST elevation Comparison ECG Date: from (01/27/17) Change: no significant change Blood Pressure Blood Pressure Findings: Normal blood pressure Blood Pressure Disposition: did not require urgent referral MDM Narrative 58-year-old gentleman history of diabetes on metformin presenting today with onset of abdominal pain around 3 AM last night diffusely with some nausea. No vomiting or bloody stools noted. No trauma or fevers. Denies any chest pain or shortness of breath. Prior cholecystectomy. Mild diffuse abdominal pain but nothing that localizing on exam. Laboratory studies were completed without evidence of acute hepatitis or pancreatitis. CT scan of the abdomen pelvis c ompleted. EKG and troponin completed but lower suspicion is acute ACS. I doubt this is PE or dissection. Chest x-ray without evidence of pneumonia or pneumothorax. This could be more gastric in nature. Troponin is negative. Kidney function at baseline. Leukocytosis of 11.[address] scan of the abdomen pelvis does show evidence of bulky mediastinal and hilar adenopathy that is new extending around the aorta. No evidence of acute diverticulitis, appendicitis, bowel obstruction, or bowel wall thickening. Patient has improvement of his pain with multiple doses of morphine. Patient states he still does not have an appetite is very concerned his pain going forward after the IV medication wears off. Did make him aware of the findings of the adenopathy and concern and the need for further workup to exclude lymphoproliferative disorder. Patient states he did not feel comfortable going home. Hospitalist was consulted for admission/observation of the patient. Impression & Plan Abdominal pain, Abdominal lymphadenopathy Discharge Plan Visit Data Chief Complaint: Flank Pain Stated Complaint: ABD PAIN INTO BACK ED Provider: Anival Mcnair Discharge Problem: Abdominal pain, Abdominal lymphadenopathy Patient Disposition: Being Evaluated by Hospitalist Discharge Instructions Interventions: ED Discharge Assessment Last Done: 01/01/19 15:59 Discharge Problem: Abdominal pain Qualifiers: Abdominal location: unspecified location Qualified Code(s): R10.9 - Unspecified abdominal pain The shirley's documentation has been prepared under my direction and personally reviewed by me in its entirety. I confirm that the note above accurately reflects all work, treatment, procedures, and medical decision making performed by me.
[2019-01-01] MEDS ORDERED: SODIUM CHLORIDE 0.9% 500 ML IV SCH (18:00)
[2019-01-01] MEDS: INSULIN ASPART 100 UNITS/ML 3 ML PEN SC SCH ×2 (18:43→21:24)
[2019-01-01] MEDS: INSULIN GLARGINE SOLOSTAR 100 UNITS/ML 3 ML PEN SC SCH (21:28)
[2019-01-02 08:03] LABS: Basophils # (auto) 0.01 K/uL (0-0.2); Basophils % (auto) 0.2 %; Eosinophils # (auto) 0.09 K/uL (0-0.5); Eosinophils % (auto) 1.6 %; Hematocrit (blood only) 47.4 % (42-52); Hemoglobin 15.6 g/dL (14.0-18.0); Immature Granulocytes # (auto) 0.02 K/uL (0.00-0.02); Immature Granulocytes % (auto) 0.3 %; Lymphocytes # (auto) 1.14 K/uL (1.2-3.4); Lymphocytes % (auto) 19.8 %; Mean Corpuscular Hgb Conc 32.9 g/dL (32-36); Mean Corpuscular Volume 91.7 fL (80-100); Monocytes % (auto) 12.1 %; Neutrophils # (auto) 3.81 K/uL (1.4-6.5); Platelet Count 161 K/uL (130-400); RDW Coefficient of Variation 14.5 % (11.5-14.5); RDW Standard Deviation 48.8 fL (36.4-46.3); Red Blood Count 5.17 M/uL (4.7-6.1); White Blood Count 5.77 K/uL (4.8-10.8)
[2019-01-02 08:42] LABS: Calcium 8.8 mg/dl (8.5-10.1); Creatinine Clr Calc Pharmacy 112.2 ml/min; Est GFR (African American) 100.4; Est GFR (Non-African American) 86.7
[2019-01-02] MEDS: INSULIN ASPART 100 UNITS/ML 3 ML PEN SC SCH ×4 (08:50→21:08)
[2019-01-02] MEDS: INSULIN GLARGINE SOLOSTAR 100 UNITS/ML 3 ML PEN SC SCH ×2 (08:52→21:08)
[2019-01-02 08:58] LABS: Albumin Globulin Ratio 0.9 (0.9-2); Globulin 3.4 gm/dl (2.5-4.0); Total Protein 6.4 gm/dl (6.4-8.2)
[2019-01-02] MEDS ORDERED: IOVERSOL 100ml IV PRN (12:54)
--- NOTE | 2019-01-02 13:20 | CT Scan Report ---
CT SCAN OF THE CHEST WITH IV CONTRAST CLINICAL HISTORY: Lymphadenopathy. COMPARISON STUDY: Chest CT dated 01/27/2017. TECHNIQUE: Following the IV administration of 93 cc of Optiray 320, CT scan of the thorax was perform ed from the thoracic inlet to the upper abdomen. Images are reviewed in the axial, sagittal, and paul nal planes. IV contrast was administered without complication. A dose lowering technique was utilize d adhering to the principles of ALARA. CT DOSE: 808.49 mGy.cm FINDINGS: Thyroid: Imaged portions of the thyroid gland are normal in size and attenuation. Low-attenuation thy roid nodules measure up to 13 mm. Thoracic aorta: The thoracic aorta is normal in caliber and demonstrates standard 3-vessel arch anato my. No dissection is seen. Pulmonary vasculature: The pulmonary trunk is normal in caliber. There are no filling defects identif ied in the central pulmonary vessels to indicate pulmonary embolus. Note that this examination was no t protocoled for evaluation of the pulmonary arteries. Heart: The heart is mildly enlarged and without pericardial effusion. The coronary arteries are dense ly calcified. Lungs and pleural spaces: There is elevation of the right hemidiaphragm. Bibasilar scarring/atelectas is is observed. No airspace consolidation is seen typical for pneumonia and there is no pleural effus ion. A calcified granuloma is noted at the right lung base. The trachea and central airways are clear . Mediastinum: There is bulky mediastinal lymphadenopathy. A right paratracheal node on image #86 measu res 2.9 x 2.2 cm. A subcarinal junior aggregate measures 7.2 x 2.5 cm. Nikki: There is bilateral hilar adenopathy. Hilar nodes measure up to 17 mm in short axis. Axillae: There is no axillary lymphadenopathy. Upper abdomen: Cholecystectomy clips are noted. Findings suggest hepatic steatosis. Mildly enlarged u pper abdominal lymph nodes identified. Celiac nodes measure up to 11 mm in short axis. The spleen is mildly enlarged, measuring 13.5 cm in length. Skeletal structures: No lytic or blastic bony lesions are seen. IMPRESSION: 1. There is bulky mediastinal and hilar adenopathy. Mildly enlarged nodes are also seen in the upper abdomen. This is pathologically indeterminant, and differential considerations include a neoplastic/l ymphoproliferative disorder such as lymphoma or possibly sarcoidosis. 2. There is no airspace consolidation or pleural effusion. 3. Mild splenomegaly. 4. Additional findings as above. Electronically signed by: Dontae Long M.D. 01/02/2019 1:18 PM
--- NOTE | 2019-01-02 19:10 | Anesthesiology Consultation ---
Date of Service January 02, 2019 Despite CXR on admission, patient does not appear to be significantly volume overloaded or in overt acute CHF. Assessment & Plan (1) Encounter for pre-operative examination: Chart Review Chart Review: grounds foreman initiated Consults Requested none History Height/Weight Height: 6 ft 1 in Weight: 119.9 kg Allergies Allergy/AdvReac Type Severity Reaction Status Date / Time codeine AdvReac Unknown DIZZINESS Verified 01/27/17 11:28 Medications Home Medications Medication Instructions Recorded Confirmed Last Taken aspirin 81 mg PO DAILY 01/01/19 01/01/19 Unknown atorvastatin 20 mg PO DAILY 01/01/19 01/01/19 Unknown empagliflozin [Jardiance] 25 mg PO DAILY 01/01/19 01/01/19 Unknown fexofenadine-pseudoephedrine 1 tab PO QAM 01/01/19 01/01/19 Unknown [Zoila-D 24 Hour] metformin 500 mg PO BID 01/01/19 01/01/19 Unknown montelukast 10 mg PO DAILY 01/01/19 01/01/19 Unknown Active Medications Generic Name Dose Route Start Last Admin Trade Name Freq PRN Reason Stop Dose Admin Acetaminophen 650 mg 01/01/19 16:14 01/01/19 16:50 Tylenol PO 01/31/19 16:13 650 mg Q4H PRN Administration pain/fever Insulin Aspart 0 units 01/01/19 16:30 01/02/19 18:12 Novolog Flexpen SC 01/31/19 16:29 3 units ACHS LOYDA Administration Insulin Glargine 0 - 12 units 01/01/19 21:00 01/02/19 08:52 Lantus Solostar Pen SC 01/31/19 20:59 6 units BID LOYDA Administration Protocol Ioversol 93 ml 01/02/19 12:54 01/02/19 12:55 Optiray 320 100ml IV 01/06/19 12:53 93 ml ONCE PRN Administration Interaction Checking Past Medical History Medical History HLD (hyperlipidemia) (Chronic) Diabetes mellitus, type II (Chronic) Chronic rhinitis (Chronic) Past Family History Family History Other Coronary heart disease Skin cancer Past Surgical History Surgical History History of colonoscopy (Resolved) History of cholecystectomy (Chronic) History of tonsillectomy (Chronic) H/O inguinal hernia repair (Chronic) Social History Smoking Status: Never smoker Hx Alcohol Use: No alcohol intake frequency: a few times a week Hx Substance Use: No Physical Exam Vital Signs Last Vital Signs Temp 36.5 C 01/02/19 15:24 Pulse 77 01/02/19 15:24 Resp 16 01/02/19 15:24 BP 121/78 01/02/19 15:24 Pulse Ox 93 01/02/19 15:24 Testing Electrocardiogram Date: 01/01/19 Findings: + NSR @ (89) and + TX (Q waves in inferior leads) Chest X-Ray Date: 01/01/19 Findings: + pulmonary vascular congestion widened mediastinum Echocardiogram Date: 01/02/19 EF: 60-65% LV Function: normal Valvular Disease: + no significant valvular disease Grade I DD Other Testing CT Chest: Diffuse hilar adenopathy. No lung consolodation or pulmonary edema noted. Laboratory Results 01/02/19 07:37 01/02/19 07:37 Urine Color Yellow 01/01/19 15:07 Urine Appearance Clear (Clear) 01/01/19 15:07 Urine pH 5.0 (4.5-7.5) 01/01/19 15:07 Ur Specific [place] > 1.045 (1.000-1.030) H 01/01/19 15:07 Urine Protein Negative (Negative) 01/01/19 15:07 Urine Glucose (UA) 3+ (Negative) H 01/01/19 15:07 Urine Ketones Negative (Negative) 01/01/19 15:07 Urine Nitrite Negative (Negative) 01/01/19 15:07 Ur Leukocyte Esterase Negative (Negative) 01/01/19 15:07 01/02/19 01/02/19 01/02/19 17:11 11:29 07:38 POC Glucose 106 H 150 H 130 H
--- NOTE | 2019-01-02 23:03 | Hospitalist Progress Note ---
Date of Service January 02, 2019 Assessment & Plan (1) Abdominal pain: Presented with abdominal + back pain. WBC 11,730 --> 5770. UA - no WBC's or RBC's. No acute findings on CT, but noted to have bulky adenopathy as discussed below. (2) Hilar lymphadenopathy: Bulky hilar, mediastinal and abdominal adenopathy noted on CT's. Do not appreciate any peripheral adenopathy. Constitutional symptoms- wt loss, sweats. Consider lymphoma, other malignancy, reactive adenopathy, sarcoidosis, etc. Thoracic Surgery consulted. (3) Elevated hemidiaphragm: Noted on chest x-ray. ? chronicity. CT as noted. Thoracic Surgery consulted. (4) Abnormal chest xray: Chest x-ray showed apparent pulmonary edema and widened mediastinum. Chest CT showed mediastinal + hilar adenopathy as dicussed above. Echo showed normal LV systolic function, grade I diastolic dysfunction. Does not appear to be in CHF clinically. (5) Diarrhea: Stool culture in process. (6) Diabetes mellitus, type II: Hold metformin. FBS today = 130. Lantus / NovoLog per protocol. (7) DVT prophylaxis: SCD's. Ambulate. (8) Discharge planning issues: Anticipated discharge to home. Family Medicine follow-up with Dr. Alvarado. Subjective Recheck for abdominal pain, back pain, abnormal CT findings. Pt seen in his room around 1655. visiting. Feels a better. Still has some abdominal and back discomfort. Diarrhea improved. No melena or hematochezia. No urinary symptoms. No fever. Recent weight loss of 10 lbs, unintentional. Intermittent sweats for some time. Occasional nonproductive cough. Has noted recent dyspnea on exertion. No dysuria or hematuria. Physical Exam Vital Signs (Past 24 Hours): Last Vital Signs Temp 36.5 C 01/02/19 15:24 Pulse 77 01/02/19 15:24 Resp 16 01/02/19 15:24 BP 121/78 01/02/19 15:24 Pulse Ox 93 01/02/19 15:24 Constitutional: no acute distress Respiratory: no respiratory distress Auscultation: lungs clear to auscultation bilaterally Cardiovascular: Rate/Rhythm: regular rate and regular rhythm Heart Sounds: no gallop, no murmur and no cardiac rub Vessels: no JVD Extremities: no calf tenderness and no edema Gastrointestinal (Abdomen): normal bowel sounds, soft, nontender, no hepatosplenomegaly Skin: no rashes, warm and dry Psychiatric: Orientation: alert and oriented x 3 Lymphatic: no lymphadenopathy (no cervical, axillary, supraclavicular, inguinal adenopathy appreciated) Results & Data Laboratory Results Laboratory Results - last 24 hr 01/02/19 01/02/19 01/02/19 07:37 07:37 07:38 WBC 5.77 RBC 5.17 Hgb 15.6 Hct 47.4 MCV 91.7 MCH 30.2 MCHC 32.9 RDW Std Deviation 48.8 H RDW Coeff of Raul 14.5 Plt Count 161 MPV 10.0 Immature Gran % (Auto) 0.3 Neut % (Auto) 66.0 Lymph % (Auto) 19.8 Porter % (Auto) 12.1 Eos % (Auto) 1.6 Baso % (Auto) 0.2 Immature Gran # (Auto) 0.02 Neut # (Auto) 3.81 Lymph # (Auto) 1.14 L Porter # (Auto) 0.70 H Eos # (Auto) 0.09 Baso # (Auto) 0.01 Sodium 138 Potassium 4.0 Chloride 106 Carbon Dioxide 29 Anion Gap 3.0 BUN 19 H Creatinine 0.95 Est Cr Clr Drug Dosing 112.2 Est GFR ( Amer) 100.4 Est GFR (Non-Af Amer) 86.7 BUN/Creatinine Ratio 20.0 Glucose 137 H POC Glucose 130 H Calcium 8.8 Magnesium 2.0 Total Bilirubin 1.0 AST 30 ALT 68 Alkaline Phosphatase 125 H Total Protein 6.4 Albumin 3.0 L Globulin 3.4 Albumin/Globulin Ratio 0.9 01/02/19 01/02/19 01/02/19 11:29 17:11 20:30 WBC RBC Hgb Hct MCV MCH MCHC RDW Std Deviation RDW Coeff of Raul Plt Count MPV Immature Gran % (Auto) Neut % (Auto) Lymph % (Auto) Porter % (Auto) Eos % (Auto) Baso % (Auto) Immature Gran # (Auto) Neut # (Auto) Lymph # (Auto) Porter # (Auto) Eos # (Auto) Baso # (Auto) Sodium Potassium Chloride Carbon Dioxide Anion Gap BUN Creatinine Est Cr Clr Drug Dosing Est GFR ( Amer) Est GFR (Non-Af Amer) BUN/Creatinine Ratio Glucose POC Glucose 150 H 106 H 158 H Calcium Magnesium Total Bilirubin AST ALT Alkaline Phosphatase Total Protein Albumin Globulin Albumin/Globulin Ratio (1) Abdominal pain Abdominal location: unspecified location Qualified Code(s): R10.9 - Unspecified abdominal pain
--- NOTE | 2019-01-03 04:59 | Consultation Report ---
DATE OF CONSULTATION: 01/02/2019 REASON FOR CONSULTATION: Mediastinal adenopathy. HISTORY OF PRESENT ILLNESS: Kirill Manuel is a very nice 58-year-old male who presented with diffuse abdominal and low back pain with some nausea with no vomiting, who underwent a CT scan and was found to have significant lymphadenopathy, not only on his periaortic and pericaval, but also he had bulky mediastinal and hilar adenopathy. This was not present 2 years ago. I was asked to evaluate him for a tissue biopsy. The patient has never smoked cigarettes. He does suffer from diabetes and hyperlipidemia, but no hypertension. He also had cholelithiasis in the past and rhinitis. I discussed this case with Dr. Beka Alfaro as well as the patient and his in detail tonight. He is normally followed by Dr. Leodan Alvarado. PAST MEDICAL HISTORY: 1. Obesity. 2. Noninsulin dependent diabetes mellitus. 3. Chronic rhinitis. 4. Hyperlipidemia. 5. Cholelithiasis. PAST SURGICAL HISTORY: 1. Cholecystectomy. 2. Tonsillectomy. 3. Inguinal herniorrhaphy. 4. Colonoscopies in the past. MEDICATIONS: 1. Montelukast. 2. Metformin. 3. Aspirin. 4. Atorvastatin. 5. Jardiance. 6. Zoila. ALLERGIES: CODEINE MAKES HIM DIZZY. 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 He is and lives at home with his . He does not smoke cigarettes. He does occasionally have a drink of alcohol. REVIEW OF SYSTEMS: The patient states he has lost about 10 pounds in the last 6 months without really trying. He does have sweats at night also. His abdominal pain and back pain has resolved. He has had some nausea, but no vomiting. He denies any neurologic symptoms such as transient ischemic attacks. He has had no seizures. He denies any joint pain. He has had no peripheral edema. He denies palpitations or chest pain. He has had no productive cough, no hemoptysis. He does have chronic rhinitis. PHYSICAL EXAMINATION: GENERAL: This is 6 feet 1 inch, almost 250-pound male who is awake, alert and oriented. He wears glasses. HEENT: Extraocular movements are intact. Pupils are equal, round, reactive. Sclerae are anicteric. He has no nasolabial flattening. His tongue is midline. Teeth are in excellent repair. He has no oral mucosal lesions. NECK: Thick, but supple. I detect no supraclavicular, cervical or axillary adenopathy. He has no carotid bruits. LUNGS: Clear. HEART: He has a regular rate and rhythm of his heart. ABDOMEN: Obese, but soft and totally nontender now. He has no ascites. He has no peripheral edema with excellent peripheral pulses. He has no joint effusions. NEUROLOGIC: He is completely intact without asterixis or focal deficits. ASSESSMENT AND PLAN: Marked hilar and mediastinal adenopathy. I am going to offer him a video mediastinoscopy tomorrow. I think this would be far superior to a fine needle aspiration if we are worried about lymphomas and/or inflammatory processes. We discussed risk and benefits including recurrent laryngeal nerve injuries. He and his understand. I am afraid if we did an endobronchial ultrasound, we would end up not getting a diagnosis and have to proceed with a video mediastinoscopy also.
[2019-01-03] MEDS: INSULIN ASPART 100 UNITS/ML 3 ML PEN SC SCH ×4 (08:19→21:22)
[2019-01-03] MEDS: INSULIN GLARGINE SOLOSTAR 100 UNITS/ML 3 ML PEN SC SCH ×2 (10:57→21:20)
[2019-01-03] MEDS ORDERED: NEOSTIGMINE METHYLSULFATE 5 MG/5 ML SYR ONE (12:15)
[2019-01-03] MEDS ORDERED: MIDAZOLAM HCL 1 MG/ML 2ML VIAL ONE (12:15)
[2019-01-03] MEDS ORDERED: DEXAMETHASONE SOD INJ 4 MG/ML VIAL ONE (12:15)
[2019-01-03] MEDS ORDERED: fentaNYL citrate 100 MCG/2 ML VIAL ONE ×2 (12:15→14:15)
[2019-01-03] MEDS ORDERED: LIDOCAINE HCL 2% 2 ML VIAL/AMP(20MG/ML) INFIL ONE (12:15)
[2019-01-03] MEDS ORDERED: ONDANSETRON INJ 2 MG/ML 2 ML VIAL ONE (12:15)
[2019-01-03] MEDS ORDERED: PROPOFOL IV EMULSION 10 MG/ML 20 ML VIAL IV ONE (12:15)
[2019-01-03] MEDS ORDERED: GLYCOPYRROLATE 0.2 MG/ML VIAL ONE ×2 (12:15→14:50)
[2019-01-03] MEDS ORDERED: LABETALOL HCL IV 5 MG/ML 20ML IV PRN (13:01)
[2019-01-03] MEDS ORDERED: fentaNYL citrate 100 MCG/2 ML VIAL IV PRN (13:01)
[2019-01-03] MEDS ORDERED: PHENYLEPHRINE 100MCG/ML 5ML SYR IV PRN (13:01)
[2019-01-03] MEDS ORDERED: MEPERIDINE HCL 25 MG/ML CARP IV PRN (13:01)
[2019-01-03] MEDS ORDERED: ePHEDrine sulfate 50 MG/ML AMP IV PRN (13:01)
[2019-01-03] MEDS ORDERED: ONDANSETRON INJ 2 MG/ML 2 ML VIAL IV PRN (13:01)
[2019-01-03] MEDS ORDERED: ATROPINE SULFATE 0.1 MG/ML 10ML SYR IV PRN (13:01)
--- NOTE | 2019-01-03 13:21 | History & Physical Bridge Note ---
Date of Service January 03, 2019 History & Physical Bridge Note I have examined the patient, reviewed the History & Physical and in the interval since the performance of the History & Physical I have noted the following changes of clinical significance: no changes noted
[2019-01-03] MEDS ORDERED: BUPIVACAINE 0.5 % 5 MG/1 ML MPF 30ML VIAL ONE (13:42)
[2019-01-03] MEDS ORDERED: CEFAZOLIN 250 MG/ML 1 GM VIAL ONE (14:20)
[2019-01-03] MEDS ORDERED: ROCURONIUM BROMIDE 10 MG/ML 5 ML VIAL ONE (14:20)
[2019-01-03] MEDS ORDERED: SUCCINYLCHOLINE CHLORIDE 20 MG/ML 10 ML VIAL ONE (14:20)
--- NOTE | 2019-01-03 14:51 | Post Operative Brief Note ---
Immediate Post Op Note v1 Date of Surgery January 03, 2019 Pre & Post Diagnosis Operation Date: 01/03/19 12:00 Pre-Op Diagnosis: mediastinal adenopathy Post-Op Diagnosis: mediastinal adenopathy (non-necrotizing granulomas). Procedure Operation Date: 01/03/19 12:00 Actual Procedures p Video Mediastinoscopy(Not Applicable) - Naseem English MD, FACS Surgeon Naseem English MD, FACS [employer]ing Manufacturing Technician Frank GROSS Estimated Blood Loss 10 Findings Consistent with Post-Op Diagnosis
--- NOTE | 2019-01-03 15:40 | XRay Report ---
XR chest 1V portable CLINICAL HISTORY: mediastinoscopy COMPARISON STUDY: No previous studies for comparison. FINDINGS: Trace amount of pneumomediastinum. Atelectasis left base and right apex. No significant pne umothorax. IMPRESSION: No evidence for pneumothorax post median sternotomy. Potential trace pneumomediastinum v ersus overlap artifact. The above report was generated using voice recognition software. It may contain grammatical, syntax or spelling errors. Electronically signed by: Leodan Pino M.D. 01/03/2019 3:38 PM
--- NOTE | 2019-01-03 16:03 | Anesthesiology Progress Note ---
Date of Service January 03, 2019 Anesthesia Post Procedure Vital Signs Vital Signs: Temp Pulse Pulse Resp BP Pulse Ox 01/03/19 15:50 78 12 124/74 97 01/03/19 15:40 76 12 129/81 100 01/03/19 15:30 77 12 132/83 99 01/03/19 15:21 36.0 C L 84 10 L 128/73 98 01/03/19 12:11 36.9 C 71 18 130/79 94 01/03/19 08:06 36.8 C 70 18 128/78 93 01/02/19 23:00 36.8 C 72 20 125/65 94 Pain Intensity Abdomen: Pain Intensity: 5 Notes Mental Status: alert / awake / arousable and participated in evaluation Patient Amnestic to Procedure: Yes Nausea / Vomiting: adequately controlled Pain: adequately controlled Airway Patency, RR, SpO2: stable & adequate BP & HR: stable & adequate Hydration State: stable & adequate Anesthetic Complications: no major complications apparent and Pt Satisfied with anesthetic care
[2019-01-03] MEDS ORDERED: TRAMADOL HCL 50 MG TABLET PO PRN (16:20)
[2019-01-03] MEDS: ACETAMINOPHEN 1,000 MG/100 ML VIAL IV SCH ×2 (16:52→23:49)
--- NOTE | 2019-01-03 22:12 | Hospitalist Progress Note ---
Date of Service January 03, 2019 Assessment & Plan (1) Abdominal pain: Presented with abdominal + back pain. WBC 11,730 --> 5770. UA - no WBC's or RBC's. No acute findings on CT, but noted to have bulky adenopathy as discussed below. (2) Hilar lymphadenopathy: Bulky hilar, mediastinal and abdominal adenopathy noted on CT's. Do not appreciate any peripheral adenopathy. Constitutional symptoms- wt loss, sweats. Consider lymphoma, other malignancy, reactive adenopathy, sarcoidosis, etc. Thoracic Surgery consulted. Mediastinoscopy performed- results pending. (3) Elevated hemidiaphragm: Noted on chest x-ray. ? chronicity. CT as noted. Thoracic Surgery consulted. (4) Abnormal chest xray: Chest x-ray showed apparent pulmonary edema and widened mediastinum. Chest CT showed mediastinal + hilar adenopathy as dicussed above. Echo showed normal LV systolic function, grade I diastolic dysfunction. Does not appear to be in CHF clinically. (5) Diarrhea: Stool culture in process. (6) Diabetes mellitus, type II: Hold metformin. FBS today = 142. Lantus / NovoLog per protocol. (7) DVT prophylaxis: SCD's. Ambulate. (8) Discharge planning issues: Anticipated discharge to home. Family Medicine follow-up with Dr. Alvarado. Subjective Recheck for abdominal pain, back pain, abnormal CT findings. Pt seen this morning and rechecked this evening. Underwent mediastinoscopy this afternoon. Had some throat irritation after the procedure. No CP, cough, SOB, nausea, vomiting. Abdominal and back discomfort improved. Diarrhea improved. No melena or hematochezia. No urinary symptoms. No fever. Recent weight loss of 10 lbs, unintentional. Intermittent sweats for some time. Physical Exam Vital Signs (Past 24 Hours): Last Vital Signs Temp 36.3 C L 01/03/19 19:15 Pulse 91 H 01/03/19 19:15 Resp 14 01/03/19 19:15 BP 130/73 01/03/19 19:15 Pulse Ox 92 01/03/19 19:15 Constitutional: no acute distress Respiratory: no respiratory distress Auscultation: lungs clear to auscultation bilaterally Cardiovascular: Rate/Rhythm: regular rate and regular rhythm Heart Sounds: no gallop, no murmur and no cardiac rub Vessels: no JVD Extremities: no calf tenderness and no edema Chest (Breasts): Chest: + abnormal inspection of chest (bandage suprasternal notch) Gastrointestinal (Abdomen): normal bowel sounds, soft, nontender, no hepatosplenomegaly Skin: no rashes, warm and dry Psychiatric: Orientation: alert and oriented x 3 Lymphatic: no lymphadenopathy (no cervical, axillary, supraclavicular, inguinal adenopathy appreciated) Results & Data Laboratory Results Laboratory Results - last 24 hr 01/03/19 01/03/19 01/03/19 07:49 11:30 12:41 POC Glucose 142 H 128 H 113 H 01/03/19 01/03/19 01/03/19 15:24 17:01 20:44 POC Glucose 141 H 161 H 234 H (1) Abdominal pain Abdominal location: unspecified location Qualified Code(s): R10.9 - Unspecified abdominal pain
--- NOTE | 2019-01-04 01:10 | Operative Report ---
DATE OF OPERATION: 01/03/2019 PREOPERATIVE DIAGNOSES: Mediastinal and periaortic adenopathy. POSTOPERATIVE DIAGNOSES: Non-necrotizing granulomas consistent with sarcoidosis and mediastinal nodes. PROCEDURE: Video mediastinoscopy. SURGEON: Naseem English MD INDEPENDENT MARKETING CONSULTANT: GINNY Harley (Mr. Martinez was present for the entire case instrumental in applying and assisting and closing the skin incisions). ANESTHESIA: General anesthesia with endotracheal intubation. PROCEDURE AND FINDINGS: The patient is a 58-year-old male who presented with abdominal pain and underwent a CT scan, which was remarkable for lymphadenopathy in the periaortic area also. I was asked to see him by Dr. Beka Alfaro and agreed that mediastinoscopy would be the most definitive quickest way to get this done. Today, on 01/03/2019, the patient underwent an uncomplicated video mediastinoscopy. He had very large hard nodes and I removed a level 4, level 7 and right level 2 and the frozen section came back as sheets of non-necrotizing granulomas which appeared to be consistent with sarcoidosis. We had negligible blood loss. He tolerated it well. DESCRIPTION OF PROCEDURE: The patient was brought to Operating Room and placed in supine position. General anesthesia induced and endotracheal intubation was performed. He was prepped and draped in usual sterile fashion. After appropriate timeout had been called and prophylactic antibiotics given, an incision was made one fingerbreadth above the sternal notch. We dissected down to the thyroid isthmus and went inferior to this and then the strap muscles in the midline and I bluntly developed a plane in the pretracheal area. The video mediastinoscope was placed. This carried us down to the bifurcation fairly quickly. There was a very large right level 4 node that we removed. We also biopsied level 7 node as well as a right level 2 node. I did use cautery to control bleeding just on the right side. We really did not dissect anything on the left. Frozen section came back. We slowly withdrew the mediastinoscope. There was no significant bleeding. Strap muscles were reapproximated with 3-0 Vicryl suture. A 4-0 Monocryl was used in interrupted fashion to approximate the wound edges. Antimicrobial dressings were placed. He tolerated it well. I attest to the content of the Intraoperative Record and any orders documented therein. Any exception s are noted below.
[2019-01-04] MEDS: ACETAMINOPHEN 1,000 MG/100 ML VIAL IV SCH (08:03)
[2019-01-04] MEDS: INSULIN ASPART 100 UNITS/ML 3 ML PEN SC SCH ×2 (08:21→12:22)
[2019-01-04] MEDS: INSULIN GLARGINE SOLOSTAR 100 UNITS/ML 3 ML PEN SC SCH (08:22)
--- NOTE | 2019-01-04 08:59 | Progress Note ---
DATE: 01/04/2019 The patient is 1 day status post his video mediastinoscopy. He did well. Our frozen section suggested sarcoidosis; however, we have sent off multiple cultures and the final pathology is not out as of yet. His x-ray looked fine after we performed the mediastinoscopy. His incision is clean. He is not hoarse. He is going to be discharged. I will see him back in the office on one visit to go over the final pathology.
--- NOTE | 2019-01-04 12:26 | Hospitalist Progress Note ---
Date of Service January 04, 2019 Assessment & Plan (1) Abdominal pain: Presented with abdominal + back pain. WBC 11,730 --> 5770. UA - no WBC's or RBC's. No acute findings on CT, but noted to have bulky adenopathy as discussed belo (2) Hilar lymphadenopathy: Bulky hilar, mediastinal and abdominal adenopathy noted on CT's. Do not appreciate any peripheral adenopathy. Constitutional symptoms- wt loss, sweats. Consider lymphoma, other malignancy, reactive adenopathy, sarcoidosis, etc. Thoracic Surgery consulted (Dr. English). Mediastinoscopy performed 01/03. Frozen section demonstrated noncaseating granulomata, consistent with sarcoidosis. Final path pending- results will be discussed with pt when he sees Dr. English in clinic. (3) Elevated hemidiaphragm: Noted on chest x-ray. ? chronicity. CT as noted. Thoracic Surgery consulted. (4) Abnormal chest xray: Chest x-ray showed apparent pulmonary edema and widened mediastinum. Chest CT showed mediastinal + hilar adenopathy as dicussed above. Echo showed normal LV systolic function, grade I diastolic dysfunction. Does not appear to be in CHF clinically. Interstitial prominence may be secondary to sarcoidosis if diagnosis confirmed. Will need f/u. (5) Diarrhea: Stool culture in process. (6) Diabetes mellitus, type II: Held metformin. FBS today = 129. Lantus / NovoLog per protocol. Discharge on usual regimen. (7) DVT prophylaxis: SCD's. Ambulate. (8) Discharge planning issues: Discharge to home. Family Medicine follow-up with Dr. Alvarado. Thoracic Medicine follow-up with Dr. English. Subjective Recheck for abdominal pain, back pain, abnormal CT findings. Pt seen in his room around 1200. visiting. Underwent mediastinoscopy yesterday. Had some throat irritation after the procedure, better today. No CP, cough, SOB, nausea, vomiting. Abdominal pain, back pain, diarrhea resolved. No melena or hematochezia. No urinary symptoms. No fever. Physical Exam Vital Signs (Past 24 Hours): Last Vital Signs Temp 36.6 C 01/04/19 12:04 Pulse 80 01/04/19 12:04 Resp 18 01/04/19 12:04 BP 116/58 L 01/04/19 12:04 Pulse Ox 91 01/04/19 12:04 Constitutional: no acute distress Respiratory: no respiratory distress Auscultation: lungs clear to auscultation bilaterally Cardiovascular: Rate/Rhythm: regular rate and regular rhythm Heart Sounds: no gallop, no murmur and no cardiac rub Vessels: no JVD Extremities: no calf tenderness and no edema Chest (Breasts): Chest: + abnormal inspection of chest (bandage suprasternal notch) Gastrointestinal (Abdomen): normal bowel sounds, soft, nontender, no h epatosplenomegaly Skin: no rashes, warm and dry Psychiatric: Orientation: alert and oriented x 3 Lymphatic: no lymphadenopathy (no cervical, axillary, supraclavicular, inguinal adenopathy appreciated) (1) Abdominal pain Abdominal location: unspecified location Qualified Code(s): R10.9 - Unspecified abdominal pain
--- NOTE | 2019-01-06 13:02 | Discharge Summary ---
Date of Service Date of admission: 01/01/19 Date of discharge: 01/04/19 Admission HPI Per Admitting Provider Pt is 58 y/o M with PMH DM II, chronic rhinitis, HLD who presented to ER with c/o abdominal pain and low back pain that began during the middle of the night. Pt describes as diffuse abdominal pain that was non-radiating and also low back pain. Patient reports chronic loose stools for several years, which he attributes secondary to being on metformin. Patient states he usually has 1 PM daily, sometimes does not have BM for several days and then has 2 soft BMs. Denies any increase in stool frequency or changes in consistency. Patient reports nausea. Has not had any vomiting. Patient returned 3 days ago from a cruise to [facility] [place]. Patient states usually has a couple of alcoholic drinks once a week however the past week had increased alcohol intake. Was drinking frozen alcoholic drinks, and states may have drank unfiltered water. Denies ill contacts. Pt reports night sweats for years. He states lost approx 10 pounds over the past month (prior to cruise) and did not change his diet. Patient reports July 2018 had URI and since has had a nonproductive cough in the mornings, which clears throughout the day. Patient reports chronic postnasal drip and takes Zoila D daily and Singulair. Denies fever/chills, diaphoresis, melena, hematochezia, ANDREWS, dizziness, syncope, vision changes, neck pain, CP, SOB, orthopnea, palpitations, hemoptysis, sore throat, choking, otalgia, paresthesias, weakness, extremity edema, rashes, urinary symptoms. Admission Exam Per Admitting Provider General: no acute distress, obese Head: normocephalic, atraumatic Eyes: PERRL, EOM's intact, conjunctiva non-injected, anicteric ENT: normal inspection external ears, nose, mucous membranes moist Neck: supple, trachea midline Lungs: clear, no respiratory distress CV: RRR, no murmur, no pretibial edema Abd: normal BS, protuberant, soft, non-tender to palpation at this time, no CVA tenderness to palpation Ext: no cyanosis, no calf tenderness Neuro: A&O x 3, no focal deficits noted, normal affect Skin: warm, dry, +skin erythema to abdomen, face, back with peeling skin - consistent with sunburn as pt just returned from cruise Principal Diagnosis abdominal pain + diarrhea - resolved; probable viral gastroenteritis mediastinal, hilar, intra-abdominal adenopathy- path pending Discharge Data Allergies Allergy/AdvReac Type Severity Reaction Status Date / Time codeine AdvReac Unknown DIZZINESS Verified 01/27/17 11:28 Consultations 01/01/19 14:11 ED Decision to Admit Stat 01/02/19 17:08 Consult Thoracic Surgery Routine Procedures Performed Operation Date: 01/03/19 12:00 Actual Procedures p Video Mediastinoscopy(Not Applicable) - Naseem English MD, FACS Ordered Studies 01/01/19 10:04 CT abd pelvis IV con only Stat 01/02/19 13:00 CT chest w con Routine Hospital Course (1) Abdominal pain: Presented with abdominal pain, back pain, diarrhea. WBC 11,730 --> 5770. UA - no WBC's or RBC's. No acute findings on CT, but noted to have bulky adenopathy as discussed below. Stool culture negative. Abdominal pain, back pain, diarrhea resolved. Suspect viral gastroenteritis. (2) Hilar lymphadenopathy: Bulky hilar, mediastinal and abdominal adenopathy noted on CT's. Do not appreciate any peripheral adenopathy. Constitutional symptoms- wt loss, sweats. Consider lymphoma, other malignancy, reactive adenopathy, sarcoidosis, etc. Thoracic Surgery consulted (Dr. English). Mediastinoscopy performed 01/03. Frozen section demonstrated noncaseating granulomata, consistent with sarcoidosis. Final path pending- results will be discussed with pt when he sees Dr. English in clinic. Culture from lymph node reported 01/06/19 and grew few coag neg Staph. Afebrile. WBC 5770 on 01/02. Coag neg Staph most likely contaminant. Will need blood cultures if he develops fever. (3) Elevated hemidiaphragm: Noted on chest x-ray. ? chronicity. CT as noted. Thoracic Surgery consulted. (4) Abnormal chest xray: Chest x-ray showed apparent pulmonary edema and widened mediastinum. Chest CT showed mediastinal + hilar adenopathy as dicussed above. Echo showed normal LV systolic function, grade I diastolic dysfunction. Does not appear to be in CHF clinically. Interstitial prominence may be secondary to sarcoidosis if diagnosis confirmed. Will need f/u. (5) Diabetes mellitus, type II: Held metformin. FBS today = 129. Lantus / NovoLog per protocol. Discharge on usual regimen. (6) DVT prophylaxis: SCD's. Ambulate. (7) Discharge planning issues: Discharge to home. Family Medicine follow-up with Dr. Alvarado. Thoracic Medicine follow-up with Dr. English. Total Time Total Time Spent Total Time Spent (In Minutes): 40 Discharge Plan Discharge Items Patient Disposition: Home - Self-Care Reason For Visit: ABDOMINAL PAIN Discharge Diagnosis: abdominal pain / back pain - resolved diarrhea - resolved (stool cultures negative) enlarged lymph nodes in chest and abdomen Condition: Good Discharge Goals: Decrease discomfort and Improve disease control Activity: As commented below Lifting: No more than 10 pounds Lifting Comment: Please ask Dr. English about heavy lifting. Bathing: Keep incision dry and May shower/bathe in 3 days Bathing Comment: may remove dressing and shower in 2 days Non-emergency contact: Primary Care Provider, Hospitalist and Surgeon Call non-emergency contact if: you have any medication questions, your symptoms worsen and your temperature is above 101 Follow-up/Referrals: Naseem English MD, FACS [Surgeon] - (Please call office on Sunday to confirm appointment.) Leodan Alvarado [Primary Care Provider] - Diet: Carb Consistent or DM2 and Heart Healthy Addtl Provider Instructions: OTHER INSTRUCTIONS: Seek medical attention if you have: * temperature above 101 * chest pain or trouble breathing * abdominal pain, nausea, vomiting * diarrhea, dark stools or bloody stools * any unanswered questions or concerns Call 911 if symptoms are severe. Call if you have any questions or problems. My cell # is [phone]. You can also reach a [facility] hospitalist on duty at [facility] 24 hours a day by calling [phone]. Prescriptions: New acetaminophen 500 mg tablet 1,000 mg PO Q8H PRN (Reason: fever or pain) Qty: 60 RF: 0 Continued atorvastatin 20 mg tablet 20 mg PO DAILY RF: 0 montelukast 10 mg tablet 10 mg PO DAILY RF: 0 metformin 500 mg tablet extended release 24 hr 500 mg PO BID RF: 0 Jardiance 25 mg tablet 25 mg PO DAILY RF: 0 aspirin 81 mg Tablet,Delayed Release (Dr/Ec) 81 mg PO DAILY RF: 0 Zoila-D 24 Hour 180-240 mg Tablet Extended Release 24 Hr 1 tab PO QAM RF: 0 Stand-Alone Forms: [facility] Discharge Orders: Discharge Order (Routine); Ordered 01/04/19 Ordered By: Beka Alfaro Admission Data Admit Date/Time: 01/02/19 23:03 Attending Provider: Beka Alfaro Admit Provider: Noah Trujillo Primary Care Provider: Leodan Alvarado Other Providers: Naseem English ; Noah Trujillo Service: Medical Other Interventions: Discharge Summary Assessment (RN) Last Done: 01/04/19 12:33 Pending Studies at Discharge: Yes (lymph node biopsy) DC Date/Time DO NOT enter until pt leaves facility: 01/04/19 13:15
== END 2019-01-04 13:15 | disposition home or self-care (01) | DRG 168 ==
LOC: ED 09:46 → 4E 09:46

== ENCOUNTER 2021-02-09 10:43 | Inpatient (IN) ==
--- NOTE | 2021-02-09 12:00 | Emergency Department Note ---
History of Present Illness General Chief complaint: Dizziness Stated complaint: SEVERE DIZZINESS Time Seen by Provider: 02/09/21 11:41 Source: patient History of Present Illness Provider complaint: Dizzy Onset (ago): hour(s) Location: head Pain Consistency: + intermittent Maximum Pain Intensity: 0 Quality: + other (Lightheaded) Relieved By: + other (Lying down) Exacerbated By: + other (Lifting his head) Associated symptoms: + headaches (Intermittent headaches for a week better with [id number] medications) and + shortness of breath; no chest pain, no cough, no fever/chills, no malaise and no nausea/vomiting This is a 60-year-old male sent over by his physician for evaluation of dizziness. The patient states that he developed the symptoms upon waking up today. He states that he is completely fine when he lies down but soon as he tries to get up or even lift his head off the bed he gets extremely dizzy. He describes the dizziness as lightheaded and states that he has no vertigo. He states that he cannot walk because of the severity of his symptoms. Over the past week he has been having similar symptoms but not to this degree. He has been seen by his director of supply chain who sent him here for evaluation for possible PE. He has been short of breath and has a history of sarcoidosis. He denies any leg swelling or pain or chest discomfort or pain. He has had a cough for 2 weeks which is now resolved. He and his both had symptoms and they were both tested twice for COVID-19 and were negative. They have received both their vaccinations as well. He denies any fever, numbness or weakness on one side of the body, abdominal pain, vomiting, black or bloody stools or urinary symptoms. He has had some mild diarrhea. He states he has been eating and drinking normally. He has had on and off headaches for the past week which is better with OTC medications. He does not have a headache currently. Home Medications Medication Instructions Recorded Confirmed Type Zoila-D 24 Hour 1 tab PO QAM 01/01/19 02/09/21 History Jardiance 25 mg PO DAILY 01/01/19 02/09/21 History aspirin 81 mg PO DAILY 01/01/19 02/09/21 History atorvastatin 20 mg PO DAILY 01/01/19 02/09/21 History metformin 500 mg PO BID 01/01/19 02/09/21 History montelukast 10 mg PO DAILY 01/01/19 02/09/21 History acetaminophen 1,000 mg PO Q8H PRN #60 tab 01/04/19 02/09/21 Rx multivitamin 1 tab PO DAILY 02/07/21 02/09/21 History Allergies Allergy/AdvReac Type Severity Reaction Status Date / Time codeine AdvReac Unknown DIZZINESS Verified 02/09/21 14:04 Past Med/Surg History Medical History (Updated 02/09/21 @ 17:16 by Manan Najera MD) Chronic rhinitis Diabetes mellitus, type II Elevated hemidiaphragm HLD (hyperlipidemia) Obesity Obstructive sleep apnea syndrome Sarcoidosis Surgical History H/O inguinal hernia repair History of cholecystectomy History of colonoscopy History of tonsillectomy Family History Other Coronary heart disease Skin cancer Social History (Updated 02/09/21 @ 14:52 by Skylar Mahan PA-C) Smoking Status: Never smoker Hx Alcohol Use: Yes Alcohol Intake Frequency Comment: 3-4 drinks a week Hx Substance Use: No Preferred Language: Kazakh Communication Ability: Effective Marketing Operations Analyst Required: No Beliefs That Will Affect Care: None Current Living Situation: Spouse Feels Safe at Home: Yes Assistive Devices: Glasses Review of Systems See HPI for pertinent positives & negatives. and A total of 10 systems reviewed and were otherwise negative Physical Exam Vital Signs Vital Signs - 24 hr 02/09/21 10:52 02/09/21 11:16 02/09/21 11:20 Temperature 36.7 C Temperature Source Oral Pulse Rate - Lying Pulse Rate - Sitting Pulse Rate 70 73 71 Pulse Rate [Left] Pulse Rate from SpO2 Sensor 71 Pulse Rhythm Regular Pulse Strength Normal Respiratory Rate 16 18 17 Respiratory Effort / Characteristics Non-Labored Respiratory Depth Normal Respiratory Pattern Regular Blood Pressure - Lying Blood Pressure - Sitting Blood Pressure 147/74 H Blood Pressure [Right Arm] Blood Pressure Mean 98 Blood Pressure Mean [Right Arm] Blood Pressure Position Sitting Blood Pressure Position [Right Arm] Pulse Oximetry 94 94 94 Oxygen Delivery Method Room Air Room Air Sepsis Recent Fever Within 48 Hours No Sepsis New/Unexplained Change in Mental Status N/A Sepsis Action Taken by Nursing No Action Required 02/09/21 11:21 02/09/21 11:26 02/09/21 11:30 Temperature Temperature Source Pulse Rate - Lying Pulse Rate - Sitting Pulse Rate 70 71 Pulse Rate [Left] 72 Pulse Rate from SpO2 Sensor 70 71 Pulse Rhythm Pulse Strength Respiratory Rate 16 18 16 Respiratory Effort / Characteristics Non-Labored Spontaneous Respiratory Depth Normal Respiratory Pattern Blood Pressure - Lying Blood Pressure - Sitting Blood Pressure 141/89 H 151/89 H Blood Pressure [Right Arm] 141/89 H Blood Pressure Mean 106 109 Blood Pressure Mean [Right Arm] 106 Blood Pressure Position Blood Pressure Position [Right Arm] Lying Pulse Oximetry 93 94 94 Oxygen Delivery Method Room Air Sepsis Recent Fever Within 48 Hours Sepsis New/Unexplained Change in Mental Status Sepsis Action Taken by Nursing 02/09/21 11:31 02/09/21 11:40 02/09/21 11:50 Temperature Temperature Source Pulse Rate - Lying Pulse Rate - Sitting Pulse Rate 72 69 71 Pulse Rate [Left] Pulse Rate from SpO2 Sensor 72 70 71 Pulse Rhythm Pulse Strength Respiratory Rate 18 14 17 Respiratory Effort / Characteristics Respiratory Depth Respiratory Pattern Blood Pressure - Lying Blood Pressure - Sitting Blood Pressure Blood Pressure [Right Arm] Blood Pressure Mean Blood Pressure Mean [Right Arm] Blood Pressure Position Blood Pressure Position [Right Arm] Pulse Oximetry 93 95 94 Oxygen Delivery Method Sepsis Recent Fever Within 48 Hours Sepsis New/Unexplained Change in Mental Status Sepsis Action Taken by Nursing 02/09/21 12:00 02/09/21 12:01 02/09/21 12:10 Temperature Temperature Source Pulse Rate - Lying Pulse Rate - Sitting Pulse Rate 69 68 69 Pulse Rate [Left] Pulse Rate from SpO2 Sensor 69 68 69 Pulse Rhythm Pulse Strength Respiratory Rate 17 16 12 Respiratory Effort / Characteristics Respiratory Depth Respiratory Pattern Blood Pressure - Lying Blood Pressure - Sitting Blood Pressure 135/76 Blood Pressure [Right Arm] Blood Pressure Mean 95 Blood Pressure Mean [Right Arm] Blood Pressure Position Blood Pressure Position [Right Arm] Pulse Oximetry 93 93 97 Oxygen Delivery Method Sepsis Recent Fever Within 48 Hours Sepsis New/Unexplained Change in Mental Status Sepsis Action Taken by Nursing 02/09/21 12:20 02/09/21 12:30 02/09/21 12:31 Temperature Temperature Source Pulse Rate - Lying Pulse Rate - Sitting Pulse Rate 69 67 68 Pulse Rate [Left] Pulse Rate from SpO2 Sensor 69 68 68 Pulse Rhythm Pulse Strength Respiratory Rate 18 19 23 Respiratory Effort / Characteristics Respiratory Depth Respiratory Pattern Blood Pressure - Lying Blood Pressure - Sitting Blood Pressure 145/91 H Blood Pressure [Right Arm] Blood Pressure Mean 109 Blood Pressure Mean [Right Arm] Blood Pressure Position Blood Pressure Position [Right Arm] Pulse Oximetry 94 94 95 Oxygen Delivery Method Sepsis Recent Fever Within 48 Hours Sepsis New/Unexplained Change in Mental Status Sepsis Action Taken by Nursing 02/09/21 12:40 02/09/21 13:04 02/09/21 13:10 Temperature Temperature Source Pulse Rate - Lying Pulse Rate - Sitting Pulse Rate 74 70 70 Pulse Rate [Left] Pulse Rate from SpO2 Sensor 73 66 70 Pulse Rhythm Pulse Strength Respiratory Rate 21 16 Respiratory Effort / Characteristics Respiratory Depth Respiratory Pattern Blood Pressure - Lying Blood Pressure - Sitting Blood Pressure Blood Pressure [Right Arm] Blood Pressure Mean Blood Pressure Mean [Right Arm] Blood Pressure Position Blood Pressure Position [Right Arm] Pulse Oximetry 94 95 95 Oxygen Delivery Method Sepsis Recent Fever Within 48 Hours Sepsis New/Unexplained Change in Mental Status Sepsis Action Taken by Nursing 02/09/21 13:20 02/09/21 13:30 02/09/21 13:31 Temperature Temperature Source Pulse Rate - Lying Pulse Rate - Sitting Pulse Rate 68 65 68 Pulse Rate [Left] Pulse Rate from SpO2 Sensor 69 67 68 Pulse Rhythm Pulse Strength Respiratory Rate 17 12 20 Respiratory Effort / Characteristics Respiratory Depth Respiratory Pattern Blood Pressure - Lying Blood Pressure - Sitting Blood Pressure 142/84 H Blood Pressure [Right Arm] Blood Pressure Mean 103 Blood Pressure Mean [Right Arm] Blood Pressure Position Blood Pressure Position [Right Arm] Pulse Oximetry 94 98 98 Oxygen Delivery Method Sepsis Recent Fever Within 48 Hours Sepsis New/Unexplained Change in Mental Status Sepsis Action Taken by Nursing 02/09/21 13:40 02/09/21 13:50 02/09/21 14:00 Temperature Temperature Source Pulse Rate - Lying 68 Pulse Rate - Sitting 65 Pulse Rate 68 71 68 Pulse Rate [Left] Pulse Rate from SpO2 Sensor 69 71 69 Pulse Rhythm Pulse Strength Respiratory Rate 12 17 16 Respiratory Effort / Characteristics Respiratory Depth Respiratory Pattern Blood Pressure - Lying 121/89 Blood Pressure - Sitting 142/84 H Blood Pressure 138/83 Blood Pressure [Right Arm] Blood Pressure Mean 101 Blood Pressure Mean [Right Arm] Blood Pressure Position Blood Pressure Position [Right Arm] Pulse Oximetry 95 97 96 Oxygen Delivery Method Sepsis Recent Fever Within 48 Hours Sepsis New/Unexplained Change in Mental Status Sepsis Action Taken by Nursing 02/09/21 14:01 02/09/21 14:10 02/09/21 14:20 Temperature Temperature Source Pulse Rate - Lying Pulse Rate - Sitting Pulse Rate 69 70 71 Pulse Rate [Left] Pulse Rate from SpO2 Sensor 69 70 72 Pulse Rhythm Pulse Strength Respiratory Rate 15 19 19 Respiratory Effort / Characteristics Respiratory Depth Respiratory Pattern Blood Pressure - Lying Blood Pressure - Sitting Blood Pressure Blood Pressure [Right Arm] Blood Pressure Mean Blood Pressure Mean [Right Arm] Blood Pressure Position Blood Pressure Position [Right Arm] Pulse Oximetry 95 97 98 Oxygen Delivery Method Sepsis Recent Fever Within 48 Hours Sepsis New/Unexplained Change in Mental Status Sepsis Action Taken by Nursing 02/09/21 14:30 02/09/21 14:31 02/09/21 14:40 Temperature Temperature Source Pulse Rate - Lying Pulse Rate - Sitting Pulse Rate 69 69 72 Pulse Rate [Left] Pulse Rate from SpO2 Sensor 70 69 72 Pulse Rhythm Pulse Strength Respiratory Rate 17 16 16 Respiratory Effort / Characteristics Respiratory Depth Respiratory Pattern Blood Pressure - Lying Blood Pressure - Sitting Blood Pressure 145/90 H Blood Pressure [Right Arm] Blood Pressure Mean 108 Blood Pressure Mean [Right Arm] Blood Pressure Position Blood Pressure Position [Right Arm] Pulse Oximetry 97 96 95 Oxygen Delivery Method Sepsis Recent Fever Within 48 Hours Sepsis New/Unexplained Change in Mental Status Sepsis Action Taken by Nursing 02/09/21 14:50 02/09/21 15:00 02/09/21 15:01 Temperature Temperature Source Pulse Rate - Lying Pulse Rate - Sitting Pulse Rate 72 71 73 Pulse Rate [Left] Pulse Rate from SpO2 Sensor 72 71 74 Pulse Rhythm Pulse Strength Respiratory Rate 16 15 13 Respiratory Effort / Characteristics Respiratory Depth Respiratory Pattern Blood Pressure - Lying Blood Pressure - Sitting Blood Pressure 141/87 H Blood Pressure [Right Arm] Blood Pressure Mean 105 Blood Pressure Mean [Right Arm] Blood Pressure Position Blood Pressure Position [Right Arm] Pulse Oximetry 96 95 95 Oxygen Delivery Method Sepsis Recent Fever Within 48 Hours Sepsis New/Unexplained Change in Mental Status Sepsis Action Taken by Nursing 02/09/21 15:10 02/09/21 15:20 02/09/21 15:30 Temperature Temperature Source Pulse Rate - Lying Pulse Rate - Sitting Pulse Rate 74 75 73 Pulse Rate [Left] Pulse Rate from SpO2 Sensor 74 75 73 Pulse Rhythm Pulse Strength Respiratory Rate 12 16 16 Respiratory Effort / Characteristics Respiratory Depth Respiratory Pattern Blood Pressure - Lying Blood Pressure - Sitting Blood Pressure 146/85 H Blood Pressure [Right Arm] Blood Pressure Mean 105 Blood Pressure Mean [Right Arm] Blood Pressure Position Blood Pressure Position [Right Arm] Pulse Oximetry 96 97 95 Oxygen Delivery Method Sepsis Recent Fever Within 48 Hours Sepsis New/Unexplained Change in Mental Status Sepsis Action Taken by Nursing 02/09/21 15:31 02/09/21 15:40 02/09/21 15:50 Temperature Temperature Source Pulse Rate - Lying Pulse Rate - Sitting Pulse Rate 72 75 75 Pulse Rate [Left] Pulse Rate from SpO2 Sensor 73 75 75 Pulse Rhythm Pulse Strength Respiratory Rate 19 16 22 Respiratory Effort / Characteristics Respiratory Depth Respiratory Pattern Blood Pressure - Lying Blood Pressure - Sitting Blood Pressure Blood Pressure [Right Arm] Blood Pressure Mean Blood Pressure Mean [Right Arm] Blood Pressure Position Blood Pressure Position [Right Arm] Pulse Oximetry 96 96 96 Oxygen Delivery Method Sepsis Recent Fever Within 48 Hours Sepsis New/Unexplained Change in Mental Status Sepsis Action Taken by Nursing 02/09/21 16:00 02/09/21 16:01 02/09/21 16:10 Temperature Temperature Source Pulse Rate - Lying Pulse Rate - Sitting Pulse Rate 70 72 70 Pulse Rate [Left] Pulse Rate from SpO2 Sensor 71 73 70 Pulse Rhythm Pulse Strength Respiratory Rate 16 16 16 Respiratory Effort / Characteristics Respiratory Depth Respiratory Pattern Blood Pressure - Lying Blood Pressure - Sitting Blood Pressure 131/89 Blood Pressure [Right Arm] Blood Pressure Mean 103 Blood Pressure Mean [Right Arm] Blood Pressure Position Blood Pressure Position [Right Arm] Pulse Oximetry 96 96 93 Oxygen Delivery Method Sepsis Recent Fever Within 48 Hours Sepsis New/Unexplained Change in Mental Status Sepsis Action Taken by Nursing 02/09/21 16:20 02/09/21 16:30 02/09/21 16:31 Temperature Temperature Source Pulse Rate - Lying Pulse Rate - Sitting Pulse Rate 71 71 74 Pulse Rate [Left] Pulse Rate from SpO2 Sensor 71 72 74 Pulse Rhythm Pulse Strength Respiratory Rate 14 18 20 Respiratory Effort / Characteristics Respiratory Depth Respiratory Pattern Blood Pressure - Lying Blood Pressure - Sitting Blood Pressure 133/82 Blood Pressure [Right Arm] Blood Pressure Mean 99 Blood Pressure Mean [Right Arm] Blood Pressure Position Blood Pressure Position [Right Arm] Pulse Oximetry 95 96 95 Oxygen Delivery Method Room Air Room Air Sepsis Recent Fever Within 48 Hours Sepsis New/Unexplained Change in Mental Status Sepsis Action Taken by Nursing 02/09/21 16:40 02/09/21 16:50 Temperature Temperature Source Pulse Rate - Lying Pulse Rate - Sitting Pulse Rate 74 72 Pulse Rate [Left] Pulse Rate from SpO2 Sensor 73 71 Pulse Rhythm Pulse Strength Respiratory Rate 24 20 Respiratory Effort / Characteristics Respiratory Depth Respiratory Pattern Blood Pressure - Lying Blood Pressure - Sitting Blood Pressure Blood Pressure [Right Arm] Blood Pressure Mean Blood Pressure Mean [Right Arm] Blood Pressure Position Blood Pressure Position [Right Arm] Pulse Oximetry 96 96 Oxygen Delivery Method Room Air Room Air Sepsis Recent Fever Within 48 Hours Sepsis New/Unexplained Change in Mental Status Sepsis Action Taken by Nursing Constitutional: Vital signs reviewed. Eyes: Pupils are equal round reactive to light. Conjunctiva are noninjected. ENT: Pharynx is clear without erythema or exudate. Mucous membranes are dry. Neck supple without meningeal signs. Respiratory: Clear to auscultation bilaterally. Breath sounds are equal bilaterally. Cardiovascular: Regular rate and rhythm. No rubs or gallops. GI: Soft, nondistended and nontender. Bowel sounds are present. Musculoskeletal: No peripheral edema. No lower extremity tenderness. Integumentary: No cyanosis. or jaundice. Neurologic: The patient is awake and alert. Cranial nerves II-XII are intact. Motor is 5 out of 5 all extremities. Sensation is intact to light touch all extremities. Normal speech. No pronator drift. Psychiatric: Normal affect. Not anxious appearing. Course Administered Medications Discontinued Medications Sodium Chloride (Nss 1000ml) 500 mls @ 999 mls/hr IV .Q31M ONE Stop: 02/09/21 14:03 Last Infusion: 02/09/21 14:24 Dose: 0 mls/hr Documented by: [id number] Admin: 02/09/21 13:53 Dose: 999 mls/hr Documented by: [id number] Ioversol (Optiray 350 500ml) 114 ml IV ONCE ONE Stop: 02/09/21 13:03 Last Admin: 02/09/21 13:02 Dose: 114 ml Documented by: [id number] Medical Decision Making Differential Diagnosis Orthostatic hypotension, dehydration, metabolic derangement, pulmonary embolism, ACS, anemia Medical Records Attestation: I reviewed the patient's medical records. I did perform a limited focused review of portions of the patient's old chart on the electronic medical record. The patient was seen by Dr. Van pulmonology several days ago who made the following comments: "I had a lengthy discussion with Kirill. I am quite concerned about his symptomatology. He has diaphoretic episodes associated w minimal exertion and associated with TAM. He has not been able to tolerate therapy for obstructive sleep apnea either with CPAP(fullface mask or nasal pillows) or O2 Rx. We did not elect to treat his sarcoidosis in the past with systemic steroids and/or steroid lowering medication in the absence of systemic symptoms and with essentially normal pulmonary function studies. I am initially concerned about coronary artery disease and coronary insufficiency manifesting in these periods of diaphoresis and severe dyspnea associated with minimal exertion. Previous chest CT on 01/02/2019 in addition to showing the lymphadenopathy as discussed , did show that the coronary arteries were densely calcified. I would like to refer him to Cardiology and patient will need to be stress tested in addition I believe a cardiac MRI will need to be obtained to rule out sarcoid involvement of the myocardium. Ischemic cardiac disease certainly needs to be ruled out. We will repeat a PET CT scan of his chest along with PFTs and additional lab oratory data with patient returning for full discussion." Home Medications Current Medication List: was personally reviewed by me Laboratory Data Attestation: I reviewed the patient's lab results. Result diagrams: 02/09/21 11:20 02/09/21 11:20 Lab Results 02/09/21 02/09/21 02/09/21 Range/Units 11:20 11:20 11:20 WBC 6.55 (4.8-10.8) K/uL RBC 5.06 (4.7-6.1) M/uL Hgb 15.7 (14.0-18.0) g/dL Hct 46.7 (42-52) % MCV 92.3 (80-100) fL MCH 31.0 (25-34) pg MCHC 33.6 (32-36) g/dL RDW Std Deviation 47.0 H (36.4-46.3) fL RDW Coeff of Raul 14.0 (11.5-14.5) % Plt Count 219 (130-400) K/uL MPV 10.1 (7.4-10.4) fL Immature Gran % (Auto) 0.3 % Neut % (Auto) 58.2 % Lymph % (Auto) 30.5 % Merrick % (Auto) 8.9 % Eos % (Auto) 1.8 % Baso % (Auto) 0.3 % Neut # (Auto) 3.81 (1.4-6.5) K/uL Lymph # (Auto) 2.00 (1.2-3.4) K/uL Merrick # (Auto) 0.58 (0.11-0.59) K/uL Eos # (Auto) 0.12 (0-0.5) K/uL Baso # (Auto) 0.02 (0-0.2) K/uL Immature Gran # (Auto) 0.02 (0.00-0.02) K/uL PT 10.2 (9.0-12.0) Seconds INR 1.0 (0.9-1.1) APTT 26.5 (21.0-31.0) Seconds PTT Ratio 1.0 Sodium 139 (136-145) mmol/L Potassium 4.1 (3.5-5.1) mmol/L Chloride 108 H (98-107) mmol/L Carbon Dioxide 26 (21-32) mmol/L Anion Gap 5.0 (3-11) BUN 25 H (7-18) mg/dl Creatinine 0.96 (0.6-1.4) mg/dl Est Cr Clr Drug Dosing 108.2 ml/min Est GFR ( Amer) 97.8 Est GFR (Non-Af Amer) 84.4 BUN/Creatinine Ratio 25.6 H (10-20) Glucose 140 H (70-99) mg/dl Calcium 9.7 (8.5-10.1) mg/dl Total Bilirubin 0.9 (0.2-1) mg/dl AST 26 (15-37) U/L ALT 55 (12-78) U/L Alkaline Phosphatase 88 (45-117) U/L Troponin I < 0.015 (0-0.045) ng/ml Total Protein 7.1 (6.4-8.2) gm/dl Albumin 3.7 (3.4-5.0) gm/dl Globulin 3.4 (2.5-4.0) gm/dl Albumin/Globulin Ratio 1.1 (0.9-2) Urine Color Urine Appearance (Clear) Urine pH (4.5-7.5) Ur Specific [place] (1.000-1.030) Urine Protein (Negative) Urine Glucose (UA) (Negative) Urine Ketones (Negative) Urine Blood (Negative) Urine Nitrite (Negative) Urine Bilirubin (Negative) Urine Urobilinogen (Negative) Ur Leukocyte Esterase (Negative) COVID-19 Eval Order SARS-CoV-2 (PCR) (Negative) Influenza Type A (PCR) (Neg) Influenza Type B (PCR) (Neg) RSV (RT-PCR) (Neg) 02/09/21 02/09/21 02/09/21 Range/Units 13:50 13:50 15:30 WBC (4.8-10.8) K/uL RBC (4.7-6.1) M/uL Hgb (14.0-18.0) g/dL Hct (42-52) % MCV (80-100) fL MCH (25-34) pg MCHC (32-36) g/dL RDW Std Deviation (36.4-46.3) fL RDW Coeff of Raul (11.5-14.5) % Plt Count (130-400) K/uL MPV (7.4-10.4) fL Immature Gran % (Auto) % Neut % (Auto) % Lymph % (Auto) % Mer[place] % (Auto) % Eos % (Auto) % Baso % (Auto) % Neut # (Auto) (1.4-6.5) K/uL Lymph # (Auto) (1.2-3.4) K/uL [place] # (Auto) (0.11-0.59) K/uL Eos # (Auto) (0-0.5) K/uL Baso # (Auto) (0-0.2) K/uL Immature Gran # (Auto) (0.00-0.02) K/uL PT (9.0-12.0) Seconds INR (0.9-1.1) APTT (21.0-31.0) Seconds PTT Ratio Sodium (136-145) mmol/L Potassium (3.5-5.1) mmol/L Chloride (98-107) mmol/L Carbon Dioxide (21-32) mmol/L Anion Gap (3-11) BUN (7-18) mg/dl Creatinine (0.6-1.4) mg/dl Est Cr Clr Drug Dosing ml/min Est GFR ( Amer) Est GFR (Non-Af Amer) BUN/Creatinine Ratio (10-20) Glucose (70-99) mg/dl Calcium (8.5-10.1) mg/dl Total Bilirubin (0.2-1) mg/dl AST (15-37) U/L ALT (12-78) U/L Alkaline Phosphatase (45-117) U/L Troponin I (0-0.045) ng/ml Total Protein (6.4-8.2) gm/dl Albumin (3.4-5.0) gm/dl Globulin (2.5-4.0) gm/dl Albumin/Globulin Ratio (0.9-2) Urine Color Yellow Urine Appearance Clear (Clear) Urine pH 7.5 (4.5-7.5) Ur Specific [place] > 1.045 H (1.000-1.030) Urine Protein Negative (Negative) Urine Glucose (UA) 3+ H (Negative) Urine Ketones Trace H (Negative) Urine Blood Negative (Negative) Urine Nitrite Negative (Negative) Urine Bilirubin Negative (Negative) Urine Urobilinogen Negative (Negative) Ur Leukocyte Esterase Negative (Negative) COVID-19 Eval Order CovFluRsv at [facility] SARS-CoV-2 (PCR) NEGATIVE (Negative) Influenza Type A (PCR) Negative (Neg) Influenza Type B (PCR) Negative (Neg) RSV (RT-PCR) Negative (Neg) Imaging Data Radiologist's Impression: Chest CTA 02/09/21 11:53 CT ANGIOGRAPHY OF THE CHEST, PULMONARY EMBOLUS PROTOCOL CLINICAL HISTORY: dizzy/sob eval for PE COMPARISON STUDY: Chest CT January 02, 2019. TECHNIQUE: Following IV administration of 114 mL of Optiray, helical axial images of the chest were obtained utilizing the pulmonary embolus protocol. Maximal intensity projections and sagittal and coronal reformats were viewed on an independent 3D workstation. IV contrast was administered without complication. Automated exposure control was utilized for the study. A dose lowering technique was utilized adhering to the principles of ALARA. CT DOSE: 1596.64 mGy.cm FINDINGS: No pulmonary emboli are identified. There is no thoracic aortic diss ection. Mild cardiomegaly is noted. There is no pericardial effusion. Thoracic lymphadenopathy shown on exam of January 02, 2019 has resolved. There is no consolidation to suggest pneumonia. Ground glass opacities favor atelectasis. No pneumothorax or pleural effusion is noted. Hepatic steatosis is noted. There is probable hepatomegaly, partially imaged on this exam. Gallbladder is surgically absent. IMPRESSION: 1. No pulmonary emboli identified. 2. No acute process within the chest. 3. Resolution of mediastinal and bilateral hilar lymphadenopathy shown on chest CT of January 02, 2019. 4. Mild cardiomegaly. 5. Hepatic steatosis. ACT 112: Negative or not required by law. Electronically signed by: Mckinley Dong M.D. 02/09/2021 1:19 PM Chest X-Ray 02/09/21 11:53 XR chest 1V portable CLINICAL HISTORY: Shortness of breath COMPARISON STUDY: 01/03/2019 FINDINGS: The cardiac and mediastinal contours remain stable. There is no failure. There is no lobar consolidation. There are subsegmental atelectatic changes at the left lung base.[ IMPRESSION: No active disease in the chest. ACT 112: Negative or not required by law. Electronically signed by: Ugo Scherer M.D. 02/09/2021 1:[address] 02/09/21 11:53 CT head/brain wo con CLINICAL HISTORY: Headache and dizziness. COMPARISON STUDY: No previous studies for comparison. TECHNIQUE: Axial CT of the brain is performed from the vertex to the skull base. IV contrast was not administered for this examination. A dose lowering technique was utilized adhering to the principles of ALARA. CT DOSE: FINDINGS: No mass lesions are visualized. There is prominent extra-axial fluid possibly representing a chronic subdural hygroma versus dilated subarachnoid space due to atrophy. There is no acute hemorrhage. There is no midline shift. There are minimal white matter hypodensities likely on a small vessel basis. There is no evidence of pathologic ventricular dilatation. There is no evidence of acute sinusitis IMPRESSION: 1. No acute intracranial findings 2. Mildly prominent extra-axial fluid. 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 Electronically signed by: Ugo Scherer M.D. 02/09/2021 1:10 PM ECG Data Attestation: I personally reviewed and interpreted this ECG as follows: Indication: + SOB/dyspnea and + weakness Rate (beats per minute): 68 Rhythm: + normal sinus ECG Intervals/blocks: no Left bundle branch block ECG ST segments: no ST depression and no ST elevation ECG Findings: no PVCs MDM Narrative I did evaluate the patient as noted above. The patient is presenting with severe weakness and lightheadedness today. He states that he cannot even lift his head off the bed without getting lightheaded. He also complains of shortness of breath on exertion for the past week. His director of supply chain sent him here for evaluation and a CT of his chest to rule out PE. IV access was established. I did place an order for continuous cardiac monitoring. The monitor showed normal sinus rhythm at a rate of 68 bpm. I did order and personally review the patient's 12-lead EKG as described above. He has no acute ischemic changes. I did order and personally reviewed the images of the patient's chest x-ray as described above. There is no acute process. I did order and review the patient's blood work as noted in the electronic medical record. CBC does not demonstrate leukocytosis, anemia or thrombocytopenia. Electrolytes are unremarkable. Glucose is 140. Troponin is negative. LFTs are unremarkable. I did order a CT of the head and CT angiogram of the chest. I did review the images myself as well as the radiology report as described above. There is no evidence of intracranial hemorrhage. He does have mildly prominent extra-axial fluid which may be chronic subdural hygromas versus dil ated subarachnoid space due to atrophy. CT angiogram does not demonstrate pulmonary emboli or acute process within the chest. He has mild cardiomegaly and resolution of his hilar lymphadenopathy seen on prior CT. I did obtain orthostatic vital signs on the patient. He is not demonstrating any orthostatic hypotension. He was given normal saline IV here. He will be hospitalized for further care and evaluation. I did discuss case with the hospitalist and case worker. Impression & Plan Dyspnea on exertion, Sarcoidosis, Severe dizziness, Ambulatory dysfunction Discharge Plan Visit Data Chief Complaint: Dizziness Stated Complaint: SEVERE DIZZINESS ED Provider: Manan Najera Discharge Problem: Dyspnea on exertion, Sarcoidosis, Severe dizziness, Ambulatory dysfunction Patient Disposition: Being Evaluated by Hospitalist Condition: Good Forms Stand Alone Forms: My [facility] Prescriptions Prescriptions: No Action multivitamin Tablet 1 tab PO DAILY RF: 0 atorvastatin 20 mg tablet 20 mg PO DAILY RF: 0 montelukast 10 mg tablet 10 mg PO DAILY RF: 0 metformin 500 mg tablet extended release 24 hr 500 mg PO BID RF: 0 Jardiance 25 mg tablet 25 mg PO DAILY RF: 0 aspirin 81 mg Tablet,Delayed Release (Dr/Ec) 81 mg PO DAILY RF: 0 Zoila-D 24 Hour 180-240 mg Tablet Extended Release 24 Hr 1 tab PO QAM RF: 0 acetaminophen 500 mg tablet 1,000 mg PO Q8H PRN (Reason: fever or pain) Qty: 60 RF: 0 Referrals Referrals: Leodan Alvarado MD [Primary Care Provider] -
[2021-02-09 12:03] LABS: Basophils # (auto) 0.02 K/uL (0-0.2); Basophils % (auto) 0.3 %; Eosinophils # (auto) 0.12 K/uL (0-0.5); Eosinophils % (auto) 1.8 %; Hematocrit (blood only) 46.7 % (42-52); Hemoglobin 15.7 g/dL (14.0-18.0); Immature Granulocytes # (auto) 0.02 K/uL (0.00-0.02); Immature Granulocytes % (auto) 0.3 %; Lymphocytes % (auto) 30.5 %; Mean Corpuscular Hgb Conc 33.6 g/dL (32-36); Mean Corpuscular Volume 92.3 fL (80-100); Mean Platelet Volume 10.1 fL (7.4-10.4); Monocytes # (auto) 0.58 K/uL (0.11-0.59); Monocytes % (auto) 8.9 %; Neutrophils # (auto) 3.81 K/uL (1.4-6.5); Neutrophils % (auto) 58.2 %; Platelet Count 219 K/uL (130-400); Red Blood Count 5.06 M/uL (4.7-6.1); White Blood Count 6.55 K/uL (4.8-10.8)
[2021-02-09 12:10] LABS: Alanine Aminotransferase 55 U/L (12-78); Albumin Level 3.7 gm/dl (3.4-5.0); Aspartate Aminotransferase 26 U/L (15-37); BUN Creatinine Ratio 25.6 (10-20); Blood Urea Nitrogen 25 mg/dl (7-18); Calcium 9.7 mg/dl (8.5-10.1); Carbon Dioxide 26 mmol/L (21-32); Chloride 108 mmol/L (98-107); Creatinine Clr Calc Pharmacy 108.2 ml/min; Est GFR (African American) 97.8; Est GFR (Non-African American) 84.4; Glucose 140 mg/dl (70-99); Potassium 4.1 mmol/L (3.5-5.1); Sodium 139 mmol/L (136-145)
[2021-02-09 12:15] LABS: Albumin Globulin Ratio 1.1 (0.9-2); Alkaline Phosphatase 88 U/L (45-117); Bilirubin,Total 0.9 mg/dl (0.2-1); Globulin 3.4 gm/dl (2.5-4.0); Partial Thromboplastin Time 26.5 Seconds (21.0-31.0); Prothrombin Time 10.2 Seconds (9.0-12.0); Total Protein 7.1 gm/dl (6.4-8.2); Troponin I < 0.015 ng/ml (0-0.045)
[2021-02-09] MEDS ORDERED: OPTIRAY 350 500ml IV ONE (13:02)
--- NOTE | 2021-02-09 13:11 | CT Scan Report ---
CT head/brain wo con CLINICAL HISTORY: Headache and dizziness. COMPARISON STUDY: No previous studies for comparison. TECHNIQUE: Axial CT of the brain is performed from the vertex to the skull base. IV contrast was not administered for this examination. A dose lowering technique was utilized adhering to the principles of ALARA. CT DOSE: FINDINGS: No mass lesions are visualized. There is prominent extra-axial fluid possibly representing a chronic subdural hygroma versus dilated subarachnoid space due to atrophy. There is no acute hemorrhage. Ther e is no midline shift. There are minimal white matter hypodensities likely on a small vessel basis. There is no evidence of pathologic ventricular dilatation. There is no evidence of acute sinusitis IMPRESSION: 1. No acute intracranial findings 2. Mildly prominent extra-axial fluid. Chronic subdural hygromas versus dilated subarachnoid space du e to atrophy ACT 112: Negative or not required by law. Electronically signed by: Ugo Scherer M.D. 02/09/2021 1:10 PM
--- NOTE | 2021-02-09 13:18 | XRay Report ---
XR chest 1V portable CLINICAL HISTORY: Shortness of breath COMPARISON STUDY: 01/03/2019 FINDINGS: The cardiac and mediastinal contours remain stable. There is no failure. There is no lobar consolidation. There are subsegmental atelectatic changes at the left lung base.[ IMPRESSION: No active disease in the chest. ACT 112: Negative or not required by law. Electronically signed by: Ugo Scherer M.D. 02/09/2021 1:17 PM
--- NOTE | 2021-02-09 13:21 | CT Scan Report ---
CT ANGIOGRAPHY OF THE CHEST, PULMONARY EMBOLUS PROTOCOL CLINICAL HISTORY: dizzy/sob eval for PE COMPARISON STUDY: Chest CT January 02, 2019. TECHNIQUE: Following IV administration of 114 mL of Optiray, helical axial images of the chest were o btained utilizing the pulmonary embolus protocol. Maximal intensity projections and sagittal and cor onal reformats were viewed on an independent 3D workstation. IV contrast was administered without co mplication. Automated exposure control was utilized for the study. A dose lowering technique was ut ilized adhering to the principles of ALARA. CT DOSE: 1596.64 mGy.cm FINDINGS: No pulmonary emboli are identified. There is no thoracic aortic dissection. Mild cardiomeg thais is noted. There is no pericardial effusion. Thoracic lymphadenopathy shown on exam of January 02 019 has resolved. There is no consolidation to suggest pneumonia. Ground glass opacities favor atelec tasis. No pneumothorax or pleural effusion is noted. Hepatic steatosis is noted. There is probable he patomegaly, partially imaged on this exam. Gallbladder is surgically absent. IMPRESSION: 1. No pulmonary emboli identified. 2. No acute process within the chest. 3. Resolution of mediastinal and bilateral hilar lymphadenopathy shown on chest CT of January 02, 2019. 4. Mild cardiomegaly. 5. Hepatic steatosis. ACT 112: Negative or not required by law. Electronically signed by: Mckinley Dong M.D. 02/09/2021 1:19 PM
[2021-02-09] MEDS ORDERED: SODIUM CHLORIDE 0.9% 1000ML 500 ML IV ONE (13:33)
--- NOTE | 2021-02-09 14:40 | History & Physical Report ---
Date of Service February 09, 2021 Assessment & Plan (1) Dizziness: Pt is 60 y/o M with PMH DM II, HLD, sarcoidosis, sleep apnea, obesity, chronic elevated hemidiaphragm presented to ER with complaint of progressive dizziness with sitting/standing x approximately 2 weeks, with worsening this wee k. Ambulation difficulty, ANDREWS, tinnitus reported. In ER afebrile, vitals stable. No leukocytosis, H&H: 15/46, no significant electrolyte abnormality, negative troponin In ER given 500ml NSS Orthostatics negative in ER CT head: No acute intracranial findings. Mildly prominent extra-axial fluid. Chronic subdural hygromas versus dilated subarachnoid space due to atrophy DDx: Vertigo, vestibular neuritis, Meniere disease, orthostatic hypotension, cardiac arrhythmia, among others Admit to tele Obtain MRI brain Echo Carotid Doppler Fall precautions Meclizine as needed PT/OT eval, Yann maneuver Consult neurology CBC, BMP in am (2) Exertional dyspnea: Reported exertional dyspnea, diaphoresis for couple of months. Denies CP Initial Troponin: negative. EKG sinus rhythm CTA CHEST: No pulmonary emboli identified. No acute process within the chest. Resolution of mediastinal and bilateral hilar lymphadenopathy shown on chest CT of January 02, 2019. Mild cardiomegaly. Hepatic steatosis. Trend troponin Echo Consider cardiology consult/referral (3) Abnormal CT scan, head: CT Head: 1. No acute intracranial findings 2. Mildly prominent extra-axial fluid. 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 Follows with pulmonology-Dr. Van No history of steroid use (6) HLD (hyperlipidemia): Continue atorvastatin (7) Elevated hemidiaphragm: Chronic elevated hemidiaphragm (8) Obstructive sleep apnea syndrome: Intolerant to CPAP as well as nocturnal oxygen DVT Prophylaxis Lovenox SQ Full Code Follows with Dr Alvarado for routine care Pt was seen and care coordinated with Dr Trujillo. See addendum History of Present Illness Chief Complaint: Dizziness Primary Care Provider: Leodan Alvarado MD Pt is 60 y/o M with PMH DM II, HLD, sarcoidosis, sleep apnea, obesity, chronic elevated hemidiaphragm presented to ER with complaint of dizziness x approximately 2 weeks. Patient reports over 2 weeks ago started with nasal congestion, productive cough. Reports followed up with PCP and was given Augmentin which he reports finishing with improvement of cough. Patient reports chronic intermittent dry cough at baseline. Patient had negative Covid 19 test at that time on 01/24/2021 and on 02/05/2021. Patient had first COVID-19 vaccine on 11/08/2020 and second on 12/13/2020. Patient states initially had intermittent dizziness described as lightheaded sensation with standing. Over the past week symptoms have worsened and today is unable to sit up without having lightheaded sensation. States having difficulty walking as he feels like he is going to fall over. Patient denies any sensation of room spinning. During evaluation in ER patient did report "room shaking" with sitting up which he states is the first time this is occurred. Has associated nausea without vomiting with dizziness. Had intermittent loose stools, denies any past several days. Also reports frontal sharp headache daily for the past week resolves with ibuprofen. Complains of tinnitus. Reports chronic hearing loss and denies any noted worsening. For the past month been having episodes of diaphoresis with exertion. Also for past few months has noted shortness of breath with exertion. Follows with Dr. Van-pulmonology for sarcoidosis. He has had normal PFTs in the past and did not have systemic symptoms so was not treated with steroids. Patient denies chest pain, extremity pain or weakness, paresthesias. Pt taking herbal supplement Nexus for past 2 months, denies other new medications. Denies fever/chills, vomiting, constipation, syncope, vision changes, neck pain, orthopnea, palpitations, hemoptysis, sore throat, choking, abdominal pain, paresthesias, extremity edema, rashes, urinary symptoms, or ill contacts. Allergies Allergy/AdvReac Type Severity Reaction Status Date / Time codeine AdvReac Unknown DIZZINESS Verified 02/09/21 14:04 Home Medications Medication Instructions Recorded Confirmed Type Zoila-D 24 Hour 1 tab PO QAM 01/01/19 02/09/21 History Jardiance 25 mg PO DAILY 01/01/19 02/09/21 History aspirin 81 mg PO DAILY 01/01/19 02/09/21 History atorvastatin 20 mg PO DAILY 01/01/19 02/09/21 History metformin 500 mg PO BID 01/01/19 02/09/21 History montelukast 10 mg PO DAILY 01/01/19 02/09/21 History acetaminophen 1,000 mg PO Q8H PRN #60 tab 01/04/19 02/09/21 Rx multivitamin 1 tab PO DAILY 02/07/21 02/09/21 History Past Med/Surg History Medical History (Updated 02/09/21 @ 14:55 by Skylar Mahan PA-C) Chronic rhinitis Diabetes mellitus, type II Elevated hemidiaphragm HLD (hyperlipidemia) Obesity Obstructive sleep apnea syndrome Sarcoidosis Surgical History H/O inguinal hernia repair History of cholecystectomy History of colonoscopy History of tonsillectomy Family History Other Coronary heart disease Skin cancer Social History (Updated 02/09/21 @ 14:52 by Skylar Mahan PA-C) Smoking Status: Never smoker Hx Alcohol Use: Yes Alcohol Intake Frequency Comment: 3-4 drinks a week Hx Substance Use: No Preferred Language: Nepali Communication Ability: Effective Lumber Mover Required: No Beliefs That Will Affect Care: None Current Living Situation: Spouse Feels Safe at Home: Yes Assistive Devices: Glasses Review of Systems Review of Systems: All systems reviewed & are unremarkable except as noted in HPI & below Physical Exam Physical Exam: General: no distress, overweight Head: normocephalic, atraumatic Eyes: PERRL, EOM's intact, no nystagmus noted, conjunctiva non-injected, anicteric ENT: normal inspection external ears, nose, mucous membranes moist Neck: supple, trachea midline Lungs: clear, no respiratory distress, no wheezing/rhonchi/rales CV: RRR, no murmur, no pretibial edema Abd: normal BS, soft, non-tender Ext: no cyanosis, no calf tenderness Neuro: A&O x 3, Upon sitting pt up reports room "slightly rocking", no focal deficits noted, normal affect Skin: warm, dry Results & Data Results & Data ([facility]) Vital Signs (Past 12 Hours) Vital Signs Temp Pulse Pulse Resp BP BP Pulse Ox 02/09/21 13:40 68 12 95 02/09/21 13:31 68 20 98 02/09/21 13:30 65 12 142/84 H 98 02/09/21 13:20 68 17 94 02/09/21 13:10 70 16 95 02/09/21 13:04 70 95 02/09/21 12:40 74 21 94 02/09/21 12:31 68 23 95 02/09/21 12:30 67 19 145/91 H 94 02/09/21 12:20 69 18 94 02/09/21 12:10 69 12 97 02/09/21 12:01 68 16 93 02/09/21 12:00 69 17 135/76 93 02/09/21 11:50 71 17 94 02/09/21 11:40 69 14 95 02/09/21 11:31 72 18 93 02/09/21 11:30 71 16 151/89 H 94 02/09/21 11:26 72 18 141/89 H 94 02/09/21 11:21 70 16 141/89 H 93 02/09/21 11:20 71 17 94 02/09/21 11:16 73 18 94 02/09/21 10:52 36.7 C 70 16 147/74 H 94 Laboratory Results Short CBC 02/09/21 Range/Units 11:20 WBC 6.55 (4.8-10.8) K/uL Hgb 15.7 (14.0-18.0) g/dL Hct 46.7 (42-52) % Plt Count 219 (130-400) K/uL BMP 02/09/21 11:20 Sodium 139 Potassium 4.1 Chloride 108 H Carbon Dioxide 26 BUN 25 H Creatinine 0.96 Glucose 140 H Calcium 9.7 Cardiac Enzymes 02/09/21 Range/Units 11:20 Troponin I < 0.015 (0-0.045) ng/ml Liver Function 02/09/21 Range/Units 11:20 Total Bilirubin 0.9 (0.2-1) mg/dl AST 26 (15-37) U/L ALT 55 (12-78) U/L Alkaline Phosphatase 88 (45-117) U/L Albumin 3.7 (3.4-5.0) gm/dl Diagnostic Findings Chest CTA 02/09/21 11:53 CT ANGIOGRAPHY OF THE CHEST, PULMONARY EMBOLUS PROTOCOL CLINICAL HISTORY: dizzy/sob eval for PE COMPARISON STUDY: Chest CT January 02, 2019. TECHNIQUE: Following IV administration of 114 mL of Optiray, helical axial images of the chest were obtained utilizing the pulmonary embolus protocol. Maximal intensity projections and sagittal and coronal reformats were viewed on an independent 3D workstation. IV contrast was administered without complication. Automated exposure control was utilized for the study. A dose lowering technique was utilized adhering to the principles of ALARA. CT DOSE: 1596.64 mGy.cm FINDINGS: No pulmonary emboli are identified. There is no thoracic aortic dissection. Mild cardiomegaly is noted. There is no pericardial effusion. Thoracic lymphadenopathy shown on exam of January 02, 2019 has resolved. There is no consolidation to suggest pneumonia. Ground glass opacities favor atelectasis. No pneumothorax or pleural effusion is noted. Hepatic steatosis is noted. There is probable hepatomegaly, partially imaged on this exam. Gallbladder is surgically absent. IMPRESSION: 1. No pulmonary emboli identified. 2. No acute process within the chest. 3. Resolution of mediastinal and bilateral hilar lymphadenopathy shown on chest CT of January 02, 2019. 4. Mild cardiomegaly. 5. Hepatic steatosis. ACT 112: Negative or not required by law. Electronically signed by: Mckinley Dong M.D. 02/09/2021 1:19 PM Chest X-Ray 02/09/21 11:53 XR chest 1V portable CLINICAL HISTORY: Shortness of breath COMPARISON STUDY: 01/03/2019 FINDINGS: The cardiac and mediastinal contours remain stable. There is no failur e. There is no lobar consolidation. There are subsegmental atelectatic changes at the left lung base.[ IMPRESSION: No active disease in the chest. ACT 112: Negative or not required by law. Electronically signed by: Ugo Scherer M.D. 02/09/2021 1:[address] 02/09/21 11:53 CT head/brain wo con CLINICAL HISTORY: Headache and dizziness. COMPARISON STUDY: No previous studies for comparison. TECHNIQUE: Axial CT of the brain is performed from the vertex to the skull base. IV contrast was not administered for this examination. A dose lowering technique was utilized adhering to the principles of ALARA. CT DOSE: FINDINGS: No mass lesions are visualized. There is prominent extra-axial fluid possibly representing a chronic subdural hygroma versus dilated subarachnoid space due to atrophy. There is no acute hemorrhage. There is no midline shift. There are minimal white matter hypodensities likely on a small vessel basis. There is no evidence of pathologic ventricular dilatation. There is no evidence of acute sinusitis IMPRESSION: 1. No acute intracranial findings 2. Mildly prominent extra-axial fluid. 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 Electronically signed by: Ugo Scherer M.D. 02/09/2021 1:10 PM ECG Rhythm: sinus rhythm Code Status & VTE Plan VTE Prophylaxis Plan VTE Prophylaxis will be ordered: Yes Supervising Physician Co-Signing Physician Notes Patient is a 60 yr old male with history of sarcoidosis, obstructive sleep apnea intolerant to CPAP, obesity, chronic elevated hemidiaphragm and other medical problems presents with history of worsening dizziness associated with nausea, gait instability secondary to balance issues since 2 weeks duration. Patient recently was treated for URI with an antibiotic course. Patient describes dizziness as lightheadedness, positional in nature associated with frontal headache, tinnitus. Please review HPI for complete details of presentation. CT head showed no acute intracranial findings. Showed findings suggestive of mildly prominent extra-axial fluid. Chronic subdural hygroma versus dilated subarachnoid space due to atrophy. On exam patient is obese, no apparent distress, normocephalic atraumatic, lungs normal breath sounds, clear to auscultation, S1-S2, no murmur, no pedal edema, abdomen soft, nontender, normal bowel sounds, alert, awake, oriented, grossly no focal deficits. Patient is admitted for management of intractable dizziness associated with gait/balance issues and nausea. Given history of recent URI, likely has vestibular neuritis/labyrinthitis. To rule out any acute intracranial abnormality, will obtain MRI brain. Also check echo, carotid Dopplers. Agree with PT OT, fall precautions and Antivert as needed. Will consider glucocorticoids based on further work-up. Consulted neurology for further recommendations. I personally reviewed the record. Patient is interviewed and examined at bedside. Patient's care is coordinated with Skylar Mahan PA-C. Please refer to the documentation above for details of patient's presentation and for discussion of other issues.
[2021-02-09 15:12] LABS: Influenza A virus by PCR Negative (Neg); Influenza B virus by PCR Negative (Neg); RSV by PCR Negative (Neg); SARS CoV2 RNA(COVID-19) InHosp NEGATIVE (Negative)
[2021-02-09 15:46] LABS: Appearance Urine Clear (Clear); Bilirubin Urine Negative (Negative); Blood Urine Negative (Negative); Color Urine Yellow; Glucose Urine UA 3+ (Negative); Ketones Urine Trace (Negative); Leukocyte Esterase Urine Negative (Negative); Nitrite Urine Negative (Negative); Protein Urine Negative (Negative); Specific Gravity Urine > 1.045 (1.000-1.030); Urobilinogen Urine Negative (Negative); pH Urine 7.5 (4.5-7.5)
--- NOTE | 2021-02-09 16:22 | Electrocardiogram Report ---
Test Reason : Blood Pressure : / mmHG Vent. Rate : 068 BPM Atrial Rate : 068 BPM P-R Int : 164 ms QRS Dur : 098 ms QT Int : 404 ms P-R-T Axes : 065 -09 068 degrees QTc Int : 429 ms Normal sinus rhythm Normal ECG When compared with ECG of 01-JAN-2019 10:59, No significant change was found Confirmed by Jona Nuno ([id number]) on 02/09/2021 4:22:25 PM Referred By: REFERRED SELF Confirmed By:Jona Nuno
[2021-02-09] MEDS ORDERED: MECLIZINE HCL 25 MG TAB PO PRN (19:35)
[2021-02-09] MEDS ORDERED: GLUCOSE 10 TABS/TUBE PO PRN (19:35)
[2021-02-09] MEDS ORDERED: ACETAMINOPHEN 325 MG TAB PO PRN (19:35)
[2021-02-09] MEDS ORDERED: DEXTROSE 50% 50 ML SYRINGE IV PRN (19:35)
[2021-02-09] MEDS ORDERED: CARBOHYDRATES FOR HYPOGLYCEMIA PO PRN (19:35)
[2021-02-09] MEDS ORDERED: GLUCOSE 40% GEL 15 GM TUBE PO PRN (19:35)
[2021-02-09] MEDS ORDERED: ALBUTEROL 0.083% NEBU SOLN 3 ML VIAL NEB PRN (19:35)
[2021-02-09] MEDS ORDERED: ONDANSETRON INJ 2 MG/ML 2 ML VIAL IV PRN (19:35)
[2021-02-09] MEDS ORDERED: GLUCAGON FOR INJ 1 MG VIAL SQ PRN (19:35)
[2021-02-09] MEDS: INSULIN ASPART 100 UNITS/ML 3 ML PEN SC SCH (20:30)
[2021-02-09] MEDS: ENOXAPARIN INJ 40 MG/0.4 ML SYR SQ SCH (20:53)
[2021-02-09] MEDS: SODIUM CHLORIDE 0.9% 1000ML 1,000 ML IV SCH ×2 (20:54→22:19)
[2021-02-09] MEDS ORDERED: GADOBUTROL 65ML VIAL IV ONE (21:34)
[2021-02-10 06:17] LABS: Hematocrit (blood only) 46.1 % (42-52); Hemoglobin 15.8 g/dL (14.0-18.0); Mean Corpuscular Hemoglobin 31.3 pg (25-34); Mean Corpuscular Hgb Conc 34.3 g/dL (32-36); Mean Corpuscular Volume 91.5 fL (80-100); Mean Platelet Volume 10.1 fL (7.4-10.4); Platelet Count 221 K/uL (130-400); RDW Coefficient of Variation 13.8 % (11.5-14.5); RDW Standard Deviation 46.3 fL (36.4-46.3); Red Blood Count 5.04 M/uL (4.7-6.1); White Blood Count 8.36 K/uL (4.8-10.8)
[2021-02-10 06:51] LABS: BUN Creatinine Ratio 20.2 (10-20); Calcium 8.5 mg/dl (8.5-10.1); Creatinine Clr Calc Pharmacy 125.1 ml/min; Est GFR (African American) 109.3; Est GFR (Non-African American) 94.3; Potassium 3.9 mmol/L (3.5-5.1)
--- NOTE | 2021-02-10 07:12 | Ultrasound Report ---
BILATERAL CAROTID DOPPLER STUDY HISTORY: dizziness COMPARISON: None. TECHNIQUE: Real-time, grayscale, and color Doppler sonography of the carotid arteries was performed. Imaging reviewed in the transverse and longitudinal planes. All measurements were calculated based on NASCET criteria. FINDINGS: Antegrade flow is seen in the bilateral vertebral arteries. The brachial pressures were not obtained. Minimal atherosclerotic plaque within the bilateral carotid bulbs. The peak systolic velocity within the right ICA is 56 cm/s. The right systolic ratio is 0.8. The peak systolic velocity within the left ICA is 61 cm/s. The left systolic ratio is 0.6. IMPRESSION: No hemodynamically significant stenosis seen within the carotid arteries. ACT 112: Negative or not required by law. Electronically signed by: Manuel Wick M.D. 02/10/2021 7:10 AM
--- NOTE | 2021-02-10 07:23 | Hospitalist Progress Note ---
Date of Service February 10, 2021 Assessment & Plan (1) Dizziness: Pt is 60 y/o M with PMH DM II, HLD, sarcoidosis, sleep apnea, obesity, chronic elevated hemidiaphragm presented to ER with complaint of progressive dizziness with sitting/standing x approximately 2 weeks, with worsening this wee k. Ambulation difficulty, ANDREWS, tinnitus reported. In ER afebrile, vitals stable. No leukocytosis, H&H: 15/46, no significant electrolyte abnormality, negative troponin In ER given 500ml NSS Orthostatics negative in ER CT head: No acute intracranial findings. Mildly prominent extra-axial fluid. Chronic subdural hygromas versus dilated subarachnoid space due to atrophy DDx: Vertigo, vestibular neuritis, Meniere disease, orthostatic hypotension, cardiac arrhythmia, among others Admit to tele Obtain MRI brain Echo - pending Carotid Doppler - no significant stenosis Fall precautions Meclizine as needed PT/OT eval, Yann maneuver Consult neurology -discussed with neurology this morning, plan to obtain CTA head and neck, they will see patient this afternoon. CBC, BMP in am (2) Exertional dyspnea: Reported exertional dyspnea, diaphoresis for couple of months. Denies CP Initial Troponin: negative. EKG sinus rhythm CTA CHEST: No pulmonary emboli identified. No acute process within the chest. Resolution of mediastinal and bilateral hilar lymphadenopathy shown on chest CT of January 02, 2019. Mild cardiomegaly. Hepatic steatosis. Trend troponin Echo Consider cardiology consult/referral (3) Abnormal CT scan, head: CT Head: 1. No acute intracranial findings 2. Mildly prominent extra-axial fluid. 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 Follows with pulmonology-Dr. Van No history of steroid use (6) HLD (hyperlipidemia): Continue atorvastatin (7) Elevated hemidiaphragm: Chronic elevated hemidiaphragm (8) Obstructive sleep apnea syndrome: Intolerant to CPAP as well as nocturnal oxygen DVT Prophylaxis Lovenox SQ Full Code Follows with Dr Alvarado for routine care Admission and Anticipated Discharge Date Admission Date: February 09, 2021 Subjective Patient seen in follow-up of dizziness Currently sitting up in the chair, in no acute distress Reports he is feeling better, that before he could not even lift his head up from bed he was so dizzy Now he is able to sit up in a chair, which he thinks is a big improvement however still feels somewhat dizzy Discussed with neurology, plan to obtain CTA head and neck, I made patient aware about upcoming study He otherwise denies any fevers or chills He has had some dyspnea on exertion for some time, follows Dr. Van with pulmonary medicine, seen recently, plan for cardiology evaluation, possible stress test. 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 Review of Systems Review of Systems: All systems reviewed & are unremarkable except as noted in HPI & below Constitutional: no fever and no chills Respiratory: + dyspnea on exertion Cardiovascular: no chest pain Gastrointestinal: no abdominal pain, no nausea and no vomiting Physical Exam Physical Exam: General: overweight male , sitting up in the chair, in NAD Head: normocephalic, atraumatic Eyes: PERRL, EOM's intact, no nystagmus noted, conjunctiva non-injected, anicteric ENT: normal inspection external ears, nose, mucous membranes moist Neck: supple, trachea midline Lungs: clear, no respiratory distress, no wheezing/rhonchi/rales CV: RRR, no murmur, no pretibial edema Abd: normal BS, soft, non-tender Ext: no cyanosis, no calf tenderness Neuro: A&O x 3, speech fluent, no facial asymmetry, no focal deficits noted, normal affect, moves all extremities spontaneously and without difficulty Skin: warm, dry Results & Data Results & Data ([facility]) Vital Signs (Past 12 Hours) Vital Signs Temp Pulse Pulse Resp BP Pulse Ox 02/10/21 04:13 36.3 C L 74 18 118/70 95 02/09/21 23:21 36.6 C 83 20 130/93 96 02/09/21 23:16 36.8 C 76 18 139/83 96 02/09/21 21:00 82 02/09/21 19:38 36.7 C 78 18 148/81 H 94 Laboratory Results 02/10/21 02/10/21 02/09/21 Range/Units 05:33 05:33 22:26 WBC 8.36 (4.8-10.8) K/uL RBC 5.04 (4.7-6.1) M/uL Hgb 15.8 (14.0-18.0) g/dL Hct 46.1 (42-52) % MCV 91.5 (80-100) fL MCH 31.3 (25-34) pg MCHC 34.3 (32-36) g/dL RDW Std Deviation 46.3 (36.4-46.3) fL RDW Coeff of Raul 13.8 (11.5-14.5) % Plt Count 221 (130-400) K/uL MPV 10.1 (7.4-10.4) fL Immature Gran % (Auto) % Neut % (Auto) % Lymph % (Auto) % [place] % (Auto) % Eos % (Auto) % Baso % (Auto) % Neut # (Auto) (1.4-6.5) K/uL Lymph # (Auto) (1.2-3.4) K/uL [place] # (Auto) (0.11-0.59) K/uL Eos # (Auto) (0-0.5) K/uL Baso # (Auto) (0-0.2) K/uL Immature Gran # (Auto) (0.00-0.02) K/uL PT (9.0-12.0) Seconds INR (0.9-1.1) APTT (21.0-31.0) Seconds PTT Ratio Sodium 139 (136-145) mmol/L Potassium 3.9 (3.5-5.1) mmol/L Chloride 109 H (98-107) mmol/L Carbon Dioxide 27 (21-32) mmol/L Anion Gap 3.0 (3-11) BUN 17 (7-18) mg/dl Creatinine 0.83 (0.6-1.4) mg/dl Est Cr Clr Drug Dosing 125.1 ml/min Est GFR ( Amer) 109.3 Est GFR (Non-Af Amer) 94.3 BUN/Creatinine Ratio 20.2 H (10-20) Glucose 108 H (70-99) mg/dl POC Glucose (70-99) mg/dl Calcium 8.5 (8.5-10.1) mg/dl Total Bilirubin (0.2-1) mg/dl AST (15-37) U/L ALT (12-78) U/L Alkaline Phosphatase (45-117) U/L Troponin I < 0.015 (0-0.045) ng/ml Total Protein (6.4-8.2) gm/dl Albumin (3.4-5.0) gm/dl Globulin (2.5-4.0) gm/dl Albumin/Globulin Ratio (0.9-2) TSH (0.300-4.500) uIu/ml Urine Color Urine Appearance (Clear) Urine pH (4.5-7.5) Ur Specific [place] (1.000-1.030) Urine Protein (Negative) Urine Glucose (UA) (Negative) Urine Ketones (Negative) Urine Blood (Negative) Urine Nitrite (Negative) Urine Bilirubin (Negative) Urine Urobilinogen (Negative) Ur Leukocyte Esterase (Negative) COVID-19 Eval Order SARS-CoV-2 (PCR) (Negative) Influenza Type A (PCR) (Neg) Influenza Type B (PCR) (Neg) RSV (RT-PCR) (Neg) 02/09/21 02/09/21 02/09/21 Range/Units 20:09 17:43 17:43 WBC (4.8-10.8) K/uL RBC (4.7-6.1) M/uL Hgb (14.0-18.0) g/dL Hct (42-52) % MCV (80-100) fL MCH (25-34) pg MCHC (32-36) g/dL RDW Std Deviation (36.4-46.3) fL RDW Coeff of Raul (11.5-14.5) % Plt Count (130-400) K/uL MPV (7.4-10.4) fL Immature Gran % (Auto) % Neut % (Auto) % Lymph % (Auto) % [place] % (Auto) % Eos % (Auto) % Baso % (Auto) % Neut # (Auto) (1.4-6.5) K/uL Lymph # (Auto) (1.2-3.4) K/uL [place] # (Auto) (0.11-0.59) K/uL Eos # (Auto) (0-0.5) K/uL Baso # (Auto) (0-0.2) K/uL Immature Gran # (Auto) (0.00-0.02) K/uL PT (9.0-12.0) Seconds INR (0.9-1.1) APTT (21.0-31.0) Seconds PTT Ratio Sodium (136-145) mmol/L Potassium (3.5-5.1) mmol/L Chloride (98-107) mmol/L Carbon Dioxide (21-32) mmol/L Anion Gap (3-11) BUN (7-18) mg/dl Creatinine (0.6-1.4) mg/dl Est Cr Clr Drug Dosing ml/min Est GFR ( Amer) Est GFR (Non-Af Amer) BUN/Creatinine Ratio (10-20) Glucose (70-99) mg/dl POC Glucose 144 H (70-99) mg/dl Calcium (8.5-10.1) mg/dl Total Bilirubin (0.2-1) mg/dl AST (15-37) U/L ALT (12-78) U/L Alkaline Phosphatase (45-117) U/L Troponin I < 0.015 (0-0.045) ng/ml Total Protein (6.4-8.2) gm/dl Albumin (3.4-5.0) gm/dl Globulin (2.5-4.0) gm/dl Albumin/Globulin Ratio (0.9-2) TSH 1.140 (0.300-4.500) uIu/ml Urine Color Urine Appearance (Clear) Urine pH (4.5-7.5) Ur Specific [place] (1.000-1.030) Urine Protein (Negative) Urine Glucose (UA) (Negative) Urine Ketones (Negative) Urine Blood (Negative) Urine Nitrite (Negative) Urine Bilirubin (Negative) Urine Urobilinogen (Negative) Ur Leukocyte Esterase (Negative) COVID-19 Eval Order SARS-CoV-2 (PCR) (Negative) Influenza Type A (PCR) (Neg) Influenza Type B (PCR) (Neg) RSV (RT-PCR) (Neg) 02/09/21 02/09/21 02/09/21 Range/Units 15:30 13:50 13:50 WBC (4.8-10.8) K/uL RBC (4.7-6.1) M/uL Hgb (14.0-18.0) g/dL Hct (42-52) % MCV (80-100) fL MCH (25-34) pg MCHC (32-36) g/dL RDW Std Deviation (36.4-46.3) fL RDW Coeff of Raul (11.5-14.5) % Plt Count (130-400) K/uL MPV (7.4-10.4) fL Immature Gran % (Auto) % Neut % (Auto) % Lymph % (Auto) % [place] % (Auto) % Eos % (Auto) % Baso % (Auto) % Neut # (Auto) (1.4-6.5) K/uL Lymph # (Auto) (1.2-3.4) K/uL [place] # (Auto) (0.11-0.59) K/uL Eos # (Auto) (0-0.5) K/uL Baso # (Auto) (0-0.2) K/uL Immature Gran # (Auto) (0.00-0.02) K/uL PT (9.0-12.0) Seconds INR (0.9-1.1) APTT (21.0-31.0) Seconds PTT Ratio Sodium (136-145) mmol/L Potassium (3.5-5.1) mmol/L Chloride (98-107) mmol/L Carbon Dioxide (21-32) mmol/L Anion Gap (3-11) BUN (7-18) mg/dl Creatinine (0.6-1.4) mg/dl Est Cr Clr Drug Dosing ml/min Est GFR ( Amer) Est GFR (Non-Af Amer) BUN/Creatinine Ratio (10-20) Glucose (70-99) mg/dl POC Glucose (70-99) mg/dl Calcium (8.5-10.1) mg/dl Total Bilirubin (0.2-1) mg/dl AST (15-37) U/L ALT (12-78) U/L Alkaline Phosphatase (45-117) U/L Troponin I (0-0.045) ng/ml Total Protein (6.4-8.2) gm/dl Albumin (3.4-5.0) gm/dl Globulin (2.5-4.0) gm/dl Albumin/Globulin Ratio (0.9-2) TSH (0.300-4.500) uIu/ml Urine Color Yellow Urine Appearance Clear (Clear) Urine pH 7.5 (4.5-7.5) Ur Specific [place] > 1.045 H (1.000-1.030) Urine Protein Negative (Negative) Urine Glucose (UA) 3+ H (Negative) Urine Ketones Trace H (Negative) Urine Blood Negative (Negative) Urine Nitrite Negative (Negative) Urine Bilirubin Negative (Negative) Urine Urobilinogen Negative (Negative) Ur Leukocyte Esterase Negative (Negative) COVID-19 Eval Order CovFluRsv at [facility] SARS-CoV-2 (PCR) NEGATIVE (Negative) Influenza Type A (PCR) Negative (Neg) Influenza Type B (PCR) Negative (Neg) RSV (RT-PCR) Negative (Neg) 02/09/21 02/09/21 02/09/21 Range/Units 11:20 11:20 11:20 WBC 6.55 (4.8-10.8) K/uL RBC 5.06 (4.7-6.1) M/uL Hgb 15.7 (14.0-18.0) g/dL Hct 46.7 (42-52) % MCV 92.3 (80-100) fL MCH 31.0 (25-34) pg MCHC 33.6 (32-36) g/dL RDW Std Deviation 47.0 H (36.4-46.3) fL RDW Coeff of Raul 14.0 (11.5-14.5) % Plt Count 219 (130-400) K/uL MPV 10.1 (7.4-10.4) fL Immature Gran % (Auto) 0.3 % Neut % (Auto) 58.2 % Lymph % (Auto) 30.5 % [place] % (Auto) 8.9 % Eos % (Auto) 1.8 % Baso % (Auto) 0.3 % Neut # (Auto) 3.81 (1.4-6.5) K/uL Lymph # (Auto) 2.00 (1.2-3.4) K/uL [place] # (Auto) 0.58 (0.11-0.59) K/uL Eos # (Auto) 0.12 (0-0.5) K/uL Baso # (Auto) 0.02 (0-0.2) K/uL Immature Gran # (Auto) 0.02 (0.00-0.02) K/uL PT 10.2 (9.0-12.0) Seconds INR 1.0 (0.9-1.1) APTT 26.5 (21.0-31.0) Seconds PTT Ratio 1.0 Sodium 139 (136-145) mmol/L Potassium 4.1 (3.5-5.1) mmol/L Chloride 108 H (98-107) mmol/L Carbon Dioxide 26 (21-32) mmol/L Anion Gap 5.0 (3-11) BUN 25 H (7-18) mg/dl Creatinine 0.96 (0.6-1.4) mg/dl Est Cr Clr Drug Dosing 108.2 ml/min Est GFR ( Amer) 97.8 Est GFR (Non-Af Amer) 84.4 BUN/Creatinine Ratio 25.6 H (10-20) Glucose 140 H (70-99) mg/dl POC Glucose (70-99) mg/dl Calcium 9.7 (8.5-10.1) mg/dl Total Bilirubin 0.9 (0.2-1) mg/dl AST 26 (15-37) U/L ALT 55 (12-78) U/L Alkaline Phosphatase 88 (45-117) U/L Troponin I < 0.015 (0-0.045) ng/ml Total Protein 7.1 (6.4-8.2) gm/dl Albumin 3.7 (3.4-5.0) gm/dl Globulin 3.4 (2.5-4.0) gm/dl Albumin/Globulin Ratio 1.1 (0.9-2) TSH (0.300-4.500) uIu/ml Urine Color Urine Appearance (Clear) Urine pH (4.5-7.5) Ur Specific [place] (1.000-1.030) Urine Protein (Negative) Urine Glucose (UA) (Negative) Urine Ketones (Negative) Urine Blood (Negative) Urine Nitrite (Negative) Urine Bilirubin (Negative) Urine Urobilinogen (Negative) Ur Leukocyte Esterase (Negative) COVID-19 Eval Order SARS-CoV-2 (PCR) (Negative) Influenza Type A (PCR) (Neg) Influenza Type B (PCR) (Neg) RSV (RT-PCR) (Neg) Medications Administered Current Inpatient Medications Acetaminophen (Acetaminophen 325 Mg Tab) 650 mg PO Q4H PRN PRN Reason: Pain or Fever Stop: 03/11/21 19:34 Last Admin: 02/10/21 03:11 Dose: 650 mg Documented by: Albuterol (Albuterol 0.083% Nebu Soln 3 Ml Vial) 2.5 mg NEB Q6R PRN PRN Reason: Shortness Of Breath Stop: 03/11/21 19:34 Aspirin (Aspirin 81 Mg Ectab) 81 mg PO DAILY [facility] Stop: 03/12/21 08:59 Atorvastatin Calcium (Atorvastatin 20 Mg Tab) 20 mg PO DAILY [facility] Stop: 03/12/21 08:59 Dextrose (Dextrose 50% 50 Ml Syringe) 25 - 50 ml IV UD PRN; Protocol PRN Reason: Hypoglycemia Protocol Stop: 03/11/21 19:34 Enoxaparin Sodium (Enoxaparin Inj 40 Mg/0.4 Ml Syr) 40 mg SQ Q24H [facility] Stop: 03/11/21 19:59 Last Admin: 02/09/21 20:53 Dose: Not Given Documented by: Fexofenadine HCl (Fexofenadine Hcl 180 Mg Tab) 180 mg PO QAM [facility]; Protocol Stop: 03/12/21 08:59 Glucagon (Glucagon For Inj 1 Mg Vial) 1 mg SQ UD PRN; Protocol PRN Reason: Hypoglycemia Protocol Stop: 03/11/21 19:34 Glucose (Glucose 10 Tabs/Tube) 4 - 8 tabs PO UD PRN; Protocol PRN Reason: Hypoglycemia Protocol Stop: 03/11/21 19:34 Glucose (Glucose 40% Gel 15 Gm Tube) 15 - 30 gm PO UD PRN; Protocol PRN Reason: Hypoglycemia Protocol Stop: 03/11/21 19:34 Insulin Aspart (Insulin Aspart 100 Units/Ml 3 Ml Pen) 0 units SC ACHS [facility] Stop: 03/11/21 20:59 Last Admin: 02/09/21 20:30 Dose: Not Given Documented by: Meclizine HCl (Meclizine Hcl 25 Mg Tab) 25 mg PO Q8H PRN PRN Reason: Dizziness or Vertigo Stop: 02/11/21 19:34 Miscellaneous (Carbohydrates For Hypoglycemia ) 15 - 30 gm PO UD PRN PRN Reason: Hypoglycemia Protocol Stop: 03/11/21 19:34 Montelukast Sodium (Montelukast Sodium 10 Mg Tablet) 10 mg PO DAILY [facility] Stop: 03/12/21 08:59 Ondansetron HCl (Ondansetron Inj 2 Mg/Ml 2 Ml Vial) 4 mg IV Q6H PRN PRN Reason: Nausea Stop: 03/11/21 19:34 Last Admin: 02/09/21 22:19 Dose: 4 mg Documented by:
--- NOTE | 2021-02-10 08:21 | Magnetic Resonance Report ---
Brain MRI WITH AND WITHOUT CONTRAST HISTORY: Tinnitus. dizziness TECHNIQUE: Multiplanar multisequence MRI of the brain was performed both before and after the intrave nous administration of contrast. COMPARISON STUDY: Head CT 02/09/2021. FINDINGS: There are no areas of restricted diffusion to suggest acute infarction. The midline structu res are intact. The paranasal sinuses are clear. The mastoid air cells are clear. The ventricles and sulci are within normal limits for age. There is no mass, hematoma, midline shift. The major vascular flow-voids at the skull base are well maintained. Postcontrast sequences show no areas of abnormal e nhancement. Mild prominence of the extra-axial spaces which favors mild volume loss. Chronic subdural hygromas could also a similar appearance but are considered less likely. Small developmental venous anomaly within the right high convexity. This is considered to be a normal variant. IMPRESSION: 1. No acute intracranial abnormality. 2. Mild prominence of the extra-axial spaces which favors mild volume loss. Chronic subdural hygromas could also a similar appearance but are considered less likely. ACT 112: Negative or not required by law. Electronically signed by: Manuel Wick M.D. 02/10/2021 8:20 AM
[2021-02-10] MEDS: INSULIN ASPART 100 UNITS/ML 3 ML PEN SC SCH ×4 (09:20→20:05)
[2021-02-10] MEDS: ATORVASTATIN 20 MG TAB PO SCH (09:21)
[2021-02-10] MEDS: ASPIRIN 81 MG ECTAB PO SCH (09:21)
[2021-02-10] MEDS: FEXOFENADINE HCL 180 MG TAB PO SCH (09:22)
[2021-02-10] MEDS: MONTELUKAST SODIUM 10 MG TABLET PO SCH (09:22)
--- NOTE | 2021-02-10 10:35 | Neurology Consultation ---
Date of Consultation February 10, 2021 Assessment & Plan (1) Severe dizziness: 1. improved since arrival with meclizine can use as needed as outpatient. 2. PT sarahi with no reproduction of symptoms will see as outpatient if increase in symptoms may need a referral to balance center if symptoms return Present on Admission?: Yes (2) Ambulatory dysfunction: 1. doing well now - gait is back to baseline Present on Admission?: Yes (3) Sarcoidosis: 1. continue to follow with Dr Van- no evidence of brain lesions 2. cardiology - for evaluation after stress test- may benefit from a event monitor Present on Admission?: Yes Supervising Physician Co-Signing Physician Notes I have seen and discussed above patient with Dr Beka Patiño, neurology History of Present Illness Reason for Consultation: dizziness, gait dysfunction Requesting Physician: David Gong MD Attending Physician: David Gong MD History of Present Illness Kirill is a 60 year old male with PMH -DM II, HLD, sarcoidosis, sleep apnea, obesity, chronic elevated hemidiaphragm presented 02/10/2021 to [facility] ED with complaint of dizziness x approximately 2 weeks. 2 weeks ago he started with nasal congestion, productive cough. His PCP gave him Augmentin which he reports finishing with improvement of cough. He does have a chronic intermittent dry cough at baseline and negative Covid 19 test at that time on 01/24/2021 and on 02/05/2021. His first COVID-19 vaccine on 11/08/2020 and second on 12/13/2020. He initially had intermittent dizziness described as lightheaded sensation with standing. His symptoms past week symptoms have worsened and today is unable to sit up without having lightheaded sensation and having difficulty walking as he feels like he is going to fall over but no sensation of room spinning but does have some associated nausea without vomiting with dizziness. He has also had intermittent loose stools, denies any past several days. He also had a frontal sharp headache daily for the past week resolves with ibuprofen and tinnitus and chronic hearing loss. For the past month been having episodes of diaphoresis with exertion. He sees Dr. Van-pulmonology for sarcoidosis. He has had normal PFTs in the past and did not have systemic symptoms so was not treated with steroids. physical therapy saw him for an sarahi maneuver but did not reproduce symptoms. The spells happen randomly and usually he can handle the light-headed events. but the last episode he could not get out of bed. denies CP, SOB, abdominal pain. Dr Van is arranging for an outpatient stress test to evaluate his heart. Allergies Allergy/AdvReac Type Severity Reaction Status Date / Time codeine AdvReac Unknown DIZZINESS Verified 02/09/21 14:04 Home Medications Medication Instructions Recorded Confirmed Type Zoila-D 24 Hour 1 tab PO QAM 01/01/19 02/09/21 History Jardiance 25 mg PO DAILY 01/01/19 02/09/21 History aspirin 81 mg PO DAILY 01/01/19 02/09/21 History atorvastatin 20 mg PO DAILY 01/01/19 02/09/21 History metformin 500 mg PO BID 01/01/19 02/09/21 History montelukast 10 mg PO DAILY 01/01/19 02/09/21 History acetaminophen 1,000 mg PO Q8H PRN #60 tab 01/04/19 02/09/21 Rx multivitamin 1 tab PO DAILY 02/07/21 02/09/21 History Patient History Medical History (Updated 02/09/21 @ 17:16 by Manan Najera MD) Chronic rhinitis Diabetes mellitus, type II Elevated hemidiaphragm HLD (hyperlipidemia) Obesity Obstructive sleep apnea syndrome Sarcoidosis Surgical History H/O inguinal hernia repair History of cholecystectomy History of colonoscopy History of tonsillectomy Family History Other Coronary heart disease Skin cancer Social History (Updated 02/09/21 @ 14:52 by Skylar Mahan PA-C) Smoking Status: Never smoker Hx Alcohol Use: Yes Alcohol type: beer and wine Alcohol Intake Frequency Comment: 3-4 drinks a week Hx Substance Use: No Preferred Language: Taiwanese Communication Ability: Effective Zipper Setter Lockstitch Required: No Beliefs That Will Affect Care: None Current Living Situation: Spouse and Family Other Information That Helps Us Care for You: No Feels Safe at Home: Yes Safety Concerns: Feels Safe At This Time Assistive Devices: Glasses Review of Systems Review of Systems: All systems reviewed & are unremarkable except as noted in HPI & below Physical Exam Physical Exam: Physical Exam: Constitutional: appearance over nourished, healthy and normal Ears, Nose, Mouth and Throat: mucous membranes moist, no injection and skin normal, eyes normal Cardiovascular: normal S-1 and S-2 and regular rate and rhythm Respiratory: course breath sounds Musculoskeletal: no peripheral edema and good distal pulses Skin: no stigmata of neurocutaneous disease noted and normal and intact Eyes: extraocular muscles intact (EOMI) and pupils equal, round and reactive to light (PERRL), no nystagmus NEUROLOGIC EXAMINATION: Mental status: Alert and interactive Oriented to full date and location Oriented to person Speech fluent with no evidence of aphasia Cranial Nerves facial symmetry Reflexes: Deep tendon reflexes were symmetrical and graded 2/5. Sensory: light cool touch intact Coordination: Romberg present with eye closed Gait/Stance: Posture normal. Gait normal: with steady with steps, base, turning, heel and toe walking and tandem gait. Motor: Negative for pronator drift of out stretched arms with eyes closed. Strength: hand mold runner biceps triceps 5/5 bilaterally, hip flex plantar flex ext 5/5 Results & Data ([facility]) Vital Signs (Past 12 Hours) Vital Signs Temp Pulse Pulse Pulse Resp BP BP 02/10/21 07:30 36.5 C 67 18 130/74 02/10/21 07:27 68 02/10/21 04:13 36.3 C L 74 18 118/70 02/09/21 23:21 36.6 C 83 20 130/93 02/09/21 23:16 36.8 C 76 18 139/83 Pulse Ox 02/10/21 07:30 92 02/10/21 07:27 02/10/21 04:13 95 02/09/21 23:21 96 02/09/21 23:16 96 Laboratory Results Abnormal lab results 02/09/21 02/09/21 02/09/21 Range/Units 11:20 15:30 20:09 Chloride 108 H (98-107) mmol/L BUN 25 H (7-18) mg/dl BUN/Creatinine Ratio 25.6 H (10-20) Glucose 140 H (70-99) mg/dl POC Glucose 144 H (70-99) mg/dl Ur Specific [place] > 1.045 H (1.000-1.030) Urine Glucose (UA) 3+ H (Negative) Urine Ketones Trace H (Negative) 04/02/10/21 02/10/21 Range/Units 05:33 09:15 11:54 Chloride 109 H (98-107) mmol/L BUN (7-18) mg/dl BUN/Creatinine Ratio 20.2 H (10-20) Glucose 108 H (70-99) mg/dl POC Glucose 204 H 128 H (70-99) mg/dl Ur Specific [place] (1.000-1.030) Urine Glucose (UA) (Negative) Urine Ketones (Negative) Diagnostic Findings MRI brain-. No acute intracranial abnormality. Mild prominence of the extra- axial spaces which favors mild volume loss. Chronic subdural hygromas could also a similar appearance but are considered less likely. carotid doppler-No hemodynamically significant stenosis seen within the carotid arteries. CTA neck-No evidence of hemodynamically significant carotid or vertebral artery stenosis. No evidence of dissection. CTA head- unremarkable imaging
[2021-02-10] MEDS ORDERED: OPTIRAY 350 500ml IV ONE (13:28)
--- NOTE | 2021-02-10 13:35 | CT Scan Report ---
CT angio neck with con CLINICAL HISTORY: Dizziness. Difficulty with balance. Possible posterior circulation insufficiency. COMPARISON STUDY: No previous studies for comparison. TECHNIQUE: CT angiography was performed from the aortic arch to the skull base. MIP imaging was perfo rmed. The patient was scanned in a dynamic helical fashion during intravenous administration of 104 c c of Optiray. A dose lowering technique was utilized adhering to the principles of ALARA. CT DOSE: 1411.31 mGy.cm Technique: CT angiogram of the carotid and vertebral arteries was obtained using intravenous contrast and 3-D reconstruction. NASCET criteria was utilized. Findings: The right carotid revealed no evidence of aneurysm and no evidence of dissection. There is no evidenc e of hemodynamic significant stenosis. The left carotid revealed no evidence of hemodynamic significant stenosis. There is no evidence of an eurysm. There is no evidence of dissection. There is no evidence of hemodynamically significant vertebral stenosis. There is no evidence of verte bral dissection. The left vertebral artery is dominant. The right vertebral artery terminates in a PI CA branch. IMPRESSION: No evidence of hemodynamically significant carotid or vertebral artery stenosis. No evidence of disse ction. ACT 112: Negative or not required by law. Electronically signed by: Ugo Scherer M.D. 02/10/2021 1:34 PM
--- NOTE | 2021-02-10 13:36 | CT Scan Report ---
CT angio head wo/w CT DOSE: CLINICAL HISTORY: Dizziness. Balance difficulty. Possible posterior circulation injury. TECHNIQUE: Unenhanced images through the brain were acquired. CT angiography of the brain was then pe rformed a dynamic helical fashion during intravenous administration of 104 cc of Optiray 350. MIP ramses ges were acquired. A dose lowering technique was utilized adhering to the principles of ALARA. COMPARISON STUDY: MRI the brain dated 02/09/2021 FINDINGS: Noncontrast images reveal no intra or extra-axial mass lesions. There is persistent prominence of the extra-axial space, unchanged from the preceding study. While likely representing volume loss, chroni c subdural hygromas could appear similar. There is no CT evidence of acute cortical infarction. There is no midline shift. There is no acute hemorrhage. There is no hydrocephalus. CT angiographic images reveal no major intracranial branch occlusions. There are no lesion suspicious for aneurysm. There are dural venous sinuses appear patent. Left vertebral artery is dominant and th e right vertebral artery terminates in a PICA branch. IMPRESSION: 1. Unremarkable CT angiography the brain. ACT 112: Negative or not required by law. Electronically signed by: Ugo Scherer M.D. 02/10/2021 1:34 PM
[2021-02-10] MEDS: ENOXAPARIN INJ 40 MG/0.4 ML SYR SQ SCH (20:31)
--- NOTE | 2021-02-11 08:08 | Hospitalist Progress Note ---
Date of Service February 11, 2021 Assessment & Plan (1) Dizziness: Pt is 60 y/o M with PMH DM II, HLD, sarcoidosis, sleep apnea, obesity, chronic elevated hemidiaphragm presented to ER with complaint of progressive dizziness with sitting/standing x approximately 2 weeks, with worsening this wee k. Ambulation difficulty, ANDREWS, tinnitus reported. In ER afebrile, vitals stable. No leukocytosis, H&H: 15/46, no significant electrolyte abnormality, negative troponin In ER given 500ml NSS Orthostatics negative in ER CT head: No acute intracranial findings. Mildly prominent extra-axial fluid. 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 No acute intracranial abnormality. 2. Mild prominence of the extra-axial spaces which favors mild volume loss. Chronic subdural hygromas could also a similar appearance but are considered less likely. Echo -normal LV chamber size with mild concentric LVH. Normal LV systolic function, EF 60 to 65%. No segmental left ventricular wall motion abnormalities are noted. Grade 1 diastolic dysfunction. No significant valvular pathology. Carotid Doppler - no significant stenosis Fall precautions Meclizine as needed PT/OT eval, Yann maneuver Consulted neurology - recommend CTA head and neck CTA head and neck Unremarkable CT angiography of the brain. No evidence of hemodynamically significant carotid or vertebral artery stenosis. No evidence of dissection. Per neuro - sounds like true vertigo that is now resolved after administration of some medications in the ER likely including meclizine and has not really recurred - no evidence for cerebrovascular accident, an acoustic tumor or other cause of the vertigo - This patient does have a headache and has had one since October which is low-grade pressure-like and could be a migraine and some of this could be migrainous vertigo but frankly has never had any episodes of this in the past and I really would not treat it anyway at this time until the question of coronary artery disease is addressed. Clinically patient is much improved, no more dizziness Discussed follow-up with primary care doctor, and cardiology Discussed with cardiology, will make sure that PCP sends referral for further evaluation Plan to discharge home (2) Exertional dyspnea: Reported exertional dyspnea, diaphoresis for couple of months. Denies CP Initial Troponin: negative. EKG sinus rhythm CTA CHEST: No pulmonary emboli identified. No acute process within the chest. Resolution of mediastinal and bilateral hilar lymphadenopathy shown on chest CT of January 02, 2019. Mild cardiomegaly. Hepatic steatosis. Trend troponin Echo Consider cardiology consult/referral Discussed with Dr. Elliott, will make PCP aware about referring to cardiology (Per pulmonary, Dr. Van's note, it is recommended that patient has cardiology work-up for dyspnea on exertion) (3) Abnormal CT scan, head: CT Head: 1. No acute intracranial findings 2. Mildly prominent extra-axial fluid. 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 Follows with pulmonology-Dr. Van No history of steroid use (6) HLD (hyperlipidemia): Continue atorvastatin (7) Elevated hemidiaphragm: Chronic elevated hemidiaphragm (8) Obstructive sleep apnea syndrome: Intolerant to CPAP as well as nocturnal oxygen DVT Prophylaxis Lovenox SQ Full Code Follows with Dr Alvarado for routine care Admission and Anticipated Discharge Date Admission Date: February 09, 2021 Subjective Patient seen in follow-up of dizziness Currently sitting up in the chair, in no acute distress Reports he is feeling well, denies any more dizziness He also denies any fevers or chills, chest pain, palpitations He has had some dyspnea on exertion for some time, follows Dr. Van with pulmonary medicine, seen recently, plan for cardiology evaluation, possible stress test. 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 Review of Systems Review of Systems: All systems reviewed & are unremarkable except as noted in HPI & below Constitutional: no fever and no chills Respiratory: no cough and no dyspnea Cardiovascular: no chest pain and no palpitations Gastrointestinal: no abdominal pain, no nausea and no vomiting Physical Exam Physical Exam: General: overweight male , sitting up in the chair, in NAD Head: normocephalic, atraumatic Eyes: PERRL, EOM's intact, no nystagmus noted, conjunctiva non-injected, anicteric ENT: normal inspection external ears, nose, mucous membranes moist Neck: supple, trachea midline Lungs: clear, no respiratory distress, no wheezing/rhonchi/rales CV: RRR, no murmur, no pretibial edema Abd: normal BS, soft, non-tender Ext: no cyanosis, no calf tenderness Neuro: A&O x 3, speech fluent, no facial asymmetry, no focal deficits noted, normal affect, moves all extremities spontaneously and without difficulty Skin: warm, dry Results & Data Results & Data ([facility]) Vital Signs (Past 12 Hours) Vital Signs Temp Pulse Pulse Pulse Resp BP Pulse Ox 02/11/21 07:15 62 02/11/21 07:00 36.9 C 67 18 131/78 94 02/11/21 04:00 36.9 C 79 20 125/77 92 02/10/21 23:52 81 02/10/21 22:51 37.2 C 79 20 140/52 L 95 Laboratory Results 02/11/21 02/11/21 02/10/21 Range/Units 08:14 08:14 20:01 WBC 7.33 (4.8-10.8) K/uL RBC 5.41 (4.7-6.1) M/uL Hgb 17.2 (14.0-18.0) g/dL Hct 49.9 (42-52) % MCV 92.2 (80-100) fL MCH 31.8 (25-34) pg MCHC 34.5 (32-36) g/dL RDW Std Deviation 46.5 H (36.4-46.3) fL RDW Coeff of Raul 13.8 (11.5-14.5) % Plt Count 253 (130-400) K/uL MPV 10.1 (7.4-10.4) fL Sodium 137 (136-145) mmol/L Potassium 4.3 (3.5-5.1) mmol/L Chloride 106 (98-107) mmol/L Carbon Dioxide 29 (21-32) mmol/L Anion Gap 2.0 L (3-11) BUN 19 H (7-18) mg/dl Creatinine 0.99 (0.6-1.4) mg/dl Est Cr Clr Drug Dosing 104.5 ml/min Est GFR ( Amer) 94.2 Est GFR (Non-Af Amer) 81.3 BUN/Creatinine Ratio 18.9 (10-20) Glucose 164 H (70-99) mg/dl POC Glucose 121 H (70-99) mg/dl Calcium 9.6 (8.5-10.1) mg/dl 02/10/21 02/10/21 Range/Units 16:59 11:54 WBC (4.8-10.8) K/uL RBC (4.7-6.1) M/uL Hgb (14.0-18.0) g/dL Hct (42-52) % MCV (80-100) fL MCH (25-34) pg MCHC (32-36) g/dL RDW Std Deviation (36.4-46.3) fL RDW Coeff of Raul (11.5-14.5) % Plt Count (130-400) K/uL MPV (7.4-10.4) fL Sodium (136-145) mmol/L Potassium (3.5-5.1) mmol/L Chloride (98-107) mmol/L Carbon Dioxide (21-32) mmol/L Anion Gap (3-11) BUN (7-18) mg/dl Creatinine (0.6-1.4) mg/dl Est Cr Clr Drug Dosing ml/min Est GFR ( Amer) Est GFR (Non-Af Amer) BUN/Creatinine Ratio (10-20) Glucose (70-99) mg/dl POC Glucose 105 H 128 H (70-99) mg/dl Calcium (8.5-10.1) mg/dl Medications Administered Current Inpatient Medications Acetaminophen (Acetaminophen 325 Mg Tab) 650 mg PO Q4H PRN PRN Reason: Pain or Fever Stop: 03/11/21 19:34 Last Admin: 02/10/21 03:11 Dose: 650 mg Documented by: Albuterol (Albuterol 0.083% Nebu Soln 3 Ml Vial) 2.5 mg NEB Q6R PRN PRN Reason: Shortness Of Breath Stop: 03/11/21 19:34 Aspirin (Aspirin 81 Mg Ectab) 81 mg PO DAILY [facility] Stop: 03/12/21 08:59 Last Admin: 02/11/21 09:30 Dose: 81 mg Documented by: Atorvastatin Calcium (Atorvastatin 20 Mg Tab) 20 mg PO DAILY [facility] Stop: 03/12/21 08:59 Last Admin: 02/11/21 09:30 Dose: 20 mg Documented by: Dextrose (Dextrose 50% 50 Ml Syringe) 25 - 50 ml IV UD PRN; Protocol PRN Reason: Hypoglycemia Protocol Stop: 03/11/21 19:34 Enoxaparin Sodium (Enoxaparin Inj 40 Mg/0.4 Ml Syr) 40 mg SQ Q24H [facility] Stop: 03/11/21 19:59 Last Admin: 02/10/21 20:31 Dose: Not Given Documented by: Fexofenadine HCl (Fexofenadine Hcl 180 Mg Tab) 180 mg PO QAM LOYDA; Protocol Stop: 03/12/21 08:59 Last Admin: 02/11/21 09:30 Dose: 180 mg Documented by: Glucagon (Glucagon For Inj 1 Mg Vial) 1 mg SQ UD PRN; Protocol PRN Reason: Hypoglycemia Protocol Stop: 03/11/21 19:34 Glucose (Glucose 10 Tabs/Tube) 4 - 8 tabs PO UD PRN; Protocol PRN Reason: Hypoglycemia Protocol Stop: 03/11/21 19:34 Glucose (Glucose 40% Gel 15 Gm Tube) 15 - 30 gm PO UD PRN; Protocol PRN Reason: Hypoglycemia Protocol Stop: 03/11/21 19:34 Insulin Aspart (Insulin Aspart 100 Units/Ml 3 Ml Pen) 0 units SC ACHS [facility] Stop: 03/11/21 20:59 Last Admin: 02/11/21 09:29 Dose: 5 units Documented by: Meclizine HCl (Meclizine Hcl 25 Mg Tab) 25 mg PO Q8H PRN PRN Reason: Dizziness or Vertigo Stop: 02/11/21 19:34 Miscellaneous (Carbohydrates For Hypoglycemia ) 15 - 30 gm PO UD PRN PRN Reason: Hypoglycemia Protocol Stop: 03/11/21 19:34 Montelukast Sodium (Montelukast Sodium 10 Mg Tablet) 10 mg PO DAILY [facility] Stop: 03/12/21 08:59 Last Admin: 02/11/21 09:30 Dose: 10 mg Documented by: Ondansetron HCl (Ondansetron Inj 2 Mg/Ml 2 Ml Vial) 4 mg IV Q6H PRN PRN Reason: Nausea Stop: 03/11/21 19:34 Last Admin: 02/09/21 22:19 Dose: 4 mg Documented by:
[2021-02-11 08:36] LABS: Hematocrit (blood only) 49.9 % (42-52); Hemoglobin 17.2 g/dL (14.0-18.0); Mean Corpuscular Hemoglobin 31.8 pg (25-34); Mean Corpuscular Hgb Conc 34.5 g/dL (32-36); Mean Corpuscular Volume 92.2 fL (80-100); Mean Platelet Volume 10.1 fL (7.4-10.4); Platelet Count 253 K/uL (130-400); RDW Coefficient of Variation 13.8 % (11.5-14.5); RDW Standard Deviation 46.5 fL (36.4-46.3); Red Blood Count 5.41 M/uL (4.7-6.1); White Blood Count 7.33 K/uL (4.8-10.8)
[2021-02-11 09:00] LABS: BUN Creatinine Ratio 18.9 (10-20); Calcium 9.6 mg/dl (8.5-10.1); Creatinine Clr Calc Pharmacy 104.5 ml/min; Est GFR (African American) 94.2; Est GFR (Non-African American) 81.3; Potassium 4.3 mmol/L (3.5-5.1)
[2021-02-11] MEDS: INSULIN ASPART 100 UNITS/ML 3 ML PEN SC SCH ×2 (09:29→12:45)
[2021-02-11] MEDS: ASPIRIN 81 MG ECTAB PO SCH (09:30)
[2021-02-11] MEDS: ATORVASTATIN 20 MG TAB PO SCH (09:30)
[2021-02-11] MEDS: MONTELUKAST SODIUM 10 MG TABLET PO SCH (09:30)
[2021-02-11] MEDS: FEXOFENADINE HCL 180 MG TAB PO SCH (09:30)
--- NOTE | 2021-02-11 12:15 | Discharge Summary ---
Date of Service February 11, 2021 Admission HPI Per Admitting Provider Pt is 60 y/o M with PMH DM II, HLD, sarcoidosis, sleep apnea, obesity, chronic elevated hemidiaphragm presented to ER with complaint of dizziness x approximately 2 weeks. Patient reports over 2 weeks ago started with nasal congestion, productive cough. Reports followed up with PCP and was given Augmentin which he reports finishing with improvement of cough. Patient reports chronic intermittent dry cough at baseline. Patient had negative Covid 19 test at that time on 01/24/2021 and on 02/05/2021. Patient had first COVID-19 vaccine on 11/08/2020 and second on 12/13/2020. Patient states initially had intermittent dizziness described as lightheaded sensation with standing. Over the past week symptoms have worsened and today is unable to sit up without having lightheaded sensation. States having difficulty walking as he feels like he is going to fall over. Patient denies any sensation of room spinning. During evaluation in ER patient did report "room shaking" with sitting up which he states is the first time this is occurred. Has associated nausea without vomiting with dizziness. Had intermittent loose stools, denies any past several days. Also reports frontal sharp headache daily for the past week resolves with ibuprofen. Complains of tinnitus. Reports chronic hearing loss and denies any noted worsening. For the past month been having episodes of diaphoresis with exertion. Also for past few months has noted shortness of breath with exertion. Follows with Dr. Van-pulmonology for sarcoidosis. He has had normal PFTs in the past and did not have systemic symptoms so was not treated with steroids. Patient denies chest pain, extremity pain or weakness, paresthesias. Pt taking herbal supplement Nexus for past 2 months, denies other new medications. Denies fever/chills, vomiting, constipation, syncope, vision changes, neck pain, orthopnea, palpitations, hemoptysis, sore throat, choking, abdominal pain, paresthesias, extremity edema, rashes, urinary symptoms, or ill contacts. Admission Exam Per Admitting Provider General: no distress, overweight Head: normocephalic, atraumatic Eyes: PERRL, EOM's intact, no nystagmus noted, conjunctiva non-injected, anicteric ENT: normal inspection external ears, nose, mucous membranes moist Neck: supple, trachea midline Lungs: clear, no respiratory distress, no wheezing/rhonchi/rales CV: RRR, no murmur, no pretibial edema Abd: normal BS, soft, non-tender Ext: no cyanosis, no calf tenderness Neuro: A&O x 3, Upon sitting pt up reports room "slightly rocking", no focal deficits noted, normal affect Skin: warm, dry Principal Diagnosis Vertigo Discharge Exam General: overweight male , sitting up in the chair, in NAD Head: normocephalic, atraumatic Eyes: PERRL, EOM's intact, no nystagmus noted, conjunctiva non-injected, anicteric ENT: normal inspection external ears, nose, mucous membranes moist Neck: supple, trachea midline Lungs: clear, no respiratory distress, no wheezing/rhonchi/rales CV: RRR, no murmur, no pretibial edema Abd: normal BS, soft, non-tender Ext: no cyanosis, no calf tenderness Neuro: A&O x 3, speech fluent, no facial asymmetry, no focal deficits noted, normal affect, moves all extremities spontaneously and without difficulty Skin: warm, dry Discharge Data Allergies Allergy/AdvReac Type Severity Reaction Status Date / Time codeine AdvReac Unknown DIZZINESS Verified 02/09/21 14:04 Consultations 02/09/21 13:47 ED Decision to Admit Stat 02/09/21 19:35 Consult Neurology Routine Ordered Studies 02/09/21 11:53 CT angio chest PE protocol Stat IMPRESSION: 1. No pulmonary emboli identified. 2. No acute process within the chest. 3. Resolution of mediastinal and bilateral hilar lymphadenopathy shown on chest CT of January 02, 2019. 4. Mild cardiomegaly. 5. Hepatic steatosis. CT head/brain wo con Stat IMPRESSION: 1. No acute intracranial findings 2. Mildly prominent extra-axial fluid. Chronic subdural hygromas versus dilated subarachnoid space due to atrophy 02/09/21 19:35 MR brain wo/w con Routine IMPRESSION: 1. No acute intracranial abnormality. 2. Mild prominence of the extra-axial spaces which favors mild volume loss. Chronic subdural hygromas could also a similar appearance but are considered less likely. US carotid doppler BI Routine IMPRESSION: No hemodynamically significant stenosis seen within the carotid arteries. 02/10/21 09:48 CT angio head wo/w Routine IMPRESSION: 1. Unremarkable CT angiography the brain. CT angio neck with con Routine IMPRESSION: No evidence of hemodynamically significant carotid or vertebral artery stenosis. No evidence of dissection. Hospital Course (1) Dizziness: Pt is 60 y/o M with PMH DM II, HLD, sarcoidosis, sleep apnea, obesity, chronic elevated hemidiaphragm presented to ER with complaint of progressive dizziness with sitting/standing x approximately 2 weeks, with worsening this week. Ambulation difficulty, ANDREWS, tinnitus reported. In ER afebrile, vitals stable. No leukocytosis, H&H: 15/46, no significant electrolyte abnormality, negative troponin In ER given 500ml NSS Orthostatics negative in ER CT head: No acute intracranial findings. Mildly prominent extra-axial fluid. 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 No acute intracranial abnormality. 2. Mild prominence of the extra-axial spaces which favors mild volume loss. Chronic subdural hygromas could also a similar appearance but are considered less likely. Echo -normal LV chamber size with mild concentric LVH. Normal LV systolic function, EF 60 to 65%. No segmental left ventricular wall motion abnormalities are noted. Grade 1 diastolic dysfunction. No significant valvular pathology. Carotid Doppler - no significant stenosis Fall precautions Meclizine as needed PT/OT eval, Yann [id number] maneuver negative Consulted neurology - recommend CTA head and neck CTA head and neck Unremarkable CT angiography of the brain. No evidence of hemodynamically significant carotid or vertebral artery stenosis. No evidence of dissection. Per neuro - sounds like true vertigo that is now resolved after administration of some medications in the ER likely including meclizine and has not really recurred - no evidence for cerebrovascular accident, an acoustic tumor or other cause of the vertigo - This patient does have a headache and has had one since October which is low-grade pressure-like and could be a migraine and some of this could be migrainous vertigo but frankly has never had any episodes of this in the past and I really would not treat it anyway at this time until the question of coronary artery disease is addressed. Clinically patient is much improved, no more dizziness Discussed follow-up with primary care doctor, and cardiology Discussed with cardiology, will make sure that PCP sends referral for further evaluation Plan to discharge home (2) Exertional dyspnea: Reported exertional dyspnea, diaphoresis for couple of months. Denies CP Initial Troponin: negative. EKG sinus rhythm CTA CHEST: No pulmonary emboli identified. No acute process within the chest. Resolution of mediastinal and bilateral hilar lymphadenopathy shown on chest CT of January 02, 2019. Mild cardiomegaly. Hepatic steatosis. Trend troponin Echo Consider cardiology consult/referral Discussed with Dr. Elliott, will make PCP aware about referring to cardiology (Per pulmonary, Dr. Van's note, it is recommended that patient has cardiology work-up for dyspnea on exertion) (3) Abnormal CT scan, head: CT Head: 1. No acute intracranial findings 2. Mildly prominent extra-axial fluid. 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 Follows with pulmonology-Dr. Van No history of steroid use (6) HLD (hyperlipidemia): Continue atorvastatin (7) Elevated hemidiaphragm: Chronic elevated hemidiaphragm (8) Obstructive sleep apnea syndrome: Intolerant to CPAP as well as nocturnal oxygen Follows with Dr Alvarado for routine care Total Time Total Time Spent Total Time Spent (In Minutes): 40 Total Time Includes: Examination of the Patient, Discharge Planning, Medication Reconciliation and Communication With Other Providers Discharge Plan Discharge Items Patient Disposition: Home - Self-Care Reason For Visit: DIZZINESS Discharge Diagnosis: Vertigo Condition on Discharge: Good Activity: Per Instructions section Non-emergency contact: Primary Care Provider and Spark Plug Tester Call non-emergency contact if: you have any medication questions and your symptoms worsen Follow-up/Referrals: Leodan Alvarado MD [Primary Care Provider] - Diet: Carb Consistent or DM2 and Heart Healthy Addtl Attending Provider Instructions: Follow-up with primary care doctor, within 1 -2weeks. It is recommended that you follow-up with cardiology, you will be called about the appointment. You can take meclizine for dizziness as prescribed, as needed. Pending Studies at Discharge: No Stand-Alone Forms: [facility] [employer], Smoking Cessation Medications and DC Order Prescriptions: New meclizine 25 mg Tablet 25 mg PO Q8H PRN (Reason: dizziness) Qty: 10 RF: 0 Continued multivitamin Tablet 1 tab PO DAILY RF: 0 atorvastatin 20 mg tablet 20 mg PO DAILY RF: 0 montelukast 10 mg tablet 10 mg PO DAILY RF: 0 metformin 500 mg tablet extended release 24 hr 500 mg PO BID RF: 0 Jardiance 25 mg tablet 25 mg PO DAILY RF: 0 aspirin 81 mg Tablet,Delayed Release (Dr/Ec) 81 mg PO DAILY RF: 0 Zoila-D 24 Hour 180-240 mg Tablet Extended Release 24 Hr 1 tab PO QAM RF: 0 acetaminophen 500 mg tablet 1,000 mg PO Q8H PRN (Reason: fever or pain) Qty: 60 RF: 0 Discharge Orders: Discharge Order (Routine); Ordered 02/11/21 Ordered By: David Gong Admission Data Admit Date/Time: 02/09/21 14:31 Attending Provider: David Gong Admit Provider: Noah Trujillo Primary Care Provider: Leodan Alvarado Other Providers: Noah Trujillo ; Beka Patiño
== END 2021-02-11 14:19 | disposition home or self-care (01) | DRG 149 ==
LOC: ED 10:43 → 2N 14:31 → SUATTDRO 14:31 → 2N 17:52